=== PATIENT | female | born 1955 | race African-American/Black ===

== ENCOUNTER 2018-04-02 16:02 | Inpatient (IN) | payer OTHER ==
[2018-04-02 16:38] VITALS: BMI 57.4
[2018-04-02] MEDS ORDERED: LACTATED RINGERS SOLUTION 1,000 ML IV STA (17:04)
[2018-04-02 17:41] LABS: BASO % 0.4 % (0-2.0); EOS % 0.5 % (0-4.5); HEMATOCRIT 38.8 % (32.4-45.2); HEMOGLOBIN 13.3 GM/dL (10.7-15.3); LYMPH % 22.9 % (8-40); MCH 33.4 pg (25.7-33.7); MCHC 34.3 g/dl (32.0-36.0); MEAN CELL VOLUME 97.3 fl (80-96); MEAN PLT VOLUME 10.5 fl (7.5-11.1); MONO % 2.6 % (3.8-10.2); NEUT % 73.6 % (42.8-82.8); PLATELET COUNT 266 K/MM3 (134-434); RBC 3.99 M/mm3 (3.60-5.2); RDW 13.6 % (11.6-15.6); WHITE BLOOD COUNT 9.2 K/mm3 (4.0-10.0)
[2018-04-02 18:00] LABS: ALBUMIN 3.3 g/dl (3.4-5.0); ANION GAP 11 (8-16); BLOOD UREA NITROGEN 17 mg/dL (7-18); CALCIUM 8.5 mg/dL (8.5-10.1); CHLORIDE 105 mmol/L (98-107); CO2 25 mmol/L (21-32); GLUCOSE,RANDOM 246 mg/dL (74-106); LIPASE 52 U/L (73-393); SODIUM 141 mmol/L (136-145)
[2018-04-02 18:04] LABS: ALK PHOS 98 U/L (45-117); BILIRUBIN,TOTAL 0.5 mg/dL (0.2-1.0); CREATININE 0.8 mg/dL (0.55-1.02); SGPT/ALT 19 U/L (12-78); TOT PROT 7.4 g/dl (6.4-8.2)
[2018-04-02 18:13] LABS: POTASSIUM 4.2 mmol/L (3.5-5.1); SGOT/AST 23 U/L (15-37)
--- NOTE | 2018-04-02 18:28 | PDOC ---
History of Present Illness - General History Source: Patient Exam Limitations: No Limitations - History of Present Illness Initial Comments: 04/02/18 19:20 Ms. Ml Hardin is a 63 year old female with past medical history of DM with bilateral lower extremity amputation and HLD presents to the emergency department with abdominal discomfort since 2:00 pm today. The patient presents with stomach sickness, dizziness, chills, and trouble catching breath since earlier today s/p eating grapes. The patient reports following up with Dr. Dawson earlier in the day, followed by returning home, where she had grapes prior to the presentation of 3 episodes of phlegmy emesis and multiple episodes of loose watery diarrhea. The patient reports she had elevated blood sugar today, denies taking insulin. The patient denies having melena or dark colored stool today, but states days prior she had an episode with dark stool, denies taking iron. The patient reports chronic history of urinary incontinence. The patient states she is ambulating via wheelchair, states she awaiting prosthetic. Denies recent sickness or travel. Denies SOB or CP. Denies hematuria or dysuria. Denies hematochezia. (+) abdominal discomfort. Dizziness. Chills. Vomiting. Diarrhea. Allergies: NKDA Past Surgical History: Bilateral lower extremity amputation Social History: Non smoker. No ETOH or recreational drug use. PCP: Dr. Dawson @ [facility]. <Lakeisha Aguilar - Last Filed: 04/02/18 19:21> - General History Source: Patient <Clara Reyesbing Nicole - Last Filed: 04/02/18 23:26> - General Chief Complaint: Vomiting/Diarrhea Stated Complaint: DIARRHEA Time Seen by Provider: 04/02/18 17:06 Past History <Lakeisha Aguilar - Last Filed: 04/02/18 19:21> - Past Medical History COPD: No DVT: No Diabetes: Yes - Suicide/Smoking/Psychosocial Hx Smoking History: Never smoked Have you smoked in the past 12 months: No Information on smoking cessation initiated: No Hx Alcohol Use: No Drug/Substance Use Hx: No Substance Use Type: None <Do Reyes - Last Filed: 04/02/18 23:26> - Past Medical History Allergies/Adverse Reactions: Allergies Allergy/AdvReac Type Severity Reaction Status Date / Time No Known Allergies Allergy Verified 04/02/18 16:27 Home Medications: Ambulatory Orders Unobtainable 02/18/18 Review of Systems - Review of Systems Able to Perform ROS?: Yes Comments:: 04/02/18 19:20 GENERAL/CONSTITUTIONAL: (+) Chills. No fever. No weakness. no sweats. HEAD, EYES, EARS, NOSE AND THROAT: No change in vision or hearing. No ear pain or discharge. No sore throat or mouth pain. No difficulty swallowing.. No congestion. CARDIOVASCULAR: No chest pain or palpitations, syncope or edema. RESPIRATORY: (+) Difficulty catching her breath. No SOB, cough, wheezing, or hemoptysis. GASTROINTESTINAL: (+) Nausea, vomiting and diarrhea. No constipation. No bloody stools. GENITOURINARY: (+)Urinary incontinence. No hematuria, dysuria, frequency, urgency or other changes. MUSCULOSKELETAL: (+) bilateral lower extremity amputation. No joint or muscle swelling or pain. No neck or back pain. SKIN: No rash or changes in skin color or lesions. NEUROLOGIC: (+) Dull headache w/ 3/10 in severity. No vertigo, loss of consciousness, or change in strength/sensation. ENDOCRINE: No increased thirst. No abnormal weight or appetite change or intolerance to heat/cold. HEMATOLOGIC/LYMPHATIC: No anemia, easy bruising/bleeding, or history of blood clots. ALLERGIC/IMMUNOLOGIC: No allergies All other systems reviewed and negative, or as documented in HPI. <Lakeisha Aguilar - Last Filed: 04/02/18 19:21> *Physical Exam - Vital Signs Last Vital Signs Temp Pulse Resp BP Pulse Ox 98 F 54 L 18 107/56 98 04/02/18 16:28 04/02/18 16:28 04/02/18 16:28 04/02/18 16:28 04/02/18 16:28 - Physical Exam Comments: 04/02/18 19:20 General: Well appearing, awake and alert, NAD. HEENT: NCAT, PERRL, EOMI, clear conjunctiva, anicteric, (+) dry mucus membranes , clear oropharynx, no oral lesions.. Neck: neck supple, FROM Resp: CTAB, normal and even respirations, no respiratory distress CVS: RRR, no murmurs, 2+ peripheral pulses throughout, no peripheral edema Abdomen: soft, NT, obese, no peritoneal signs. Back: nontender, normal inspection and ROM MSK: (+) BIlateral lower extremity amputation. no edema, OLSON x4, ROM intact. No clubbing or cyanosis. normal bulk and tone. Neuro: alert, oriented appropriately; no focal neurologic deficits. SILT, 5/5 distal and prox strength in all extrem. speech clear. Skin: warm and well perfused, cap refill <2 sec, normal color for ethnicity. <Lakeisha Aguilar - Last Filed: 04/02/18 19:21> - Vital Signs Last Vital Signs Temp Pulse Resp BP Pulse Ox 98 F 54 L 18 107/56 98 04/02/18 16:28 04/02/18 16:28 04/02/18 16:28 04/02/18 16:28 04/02/18 16:28 <Do Reyes - Last Filed: 04/02/18 23:26> ED Treatment Course - LABORATORY CBC & Chemistry Diagram: 04/02/18 17:12 04/02/18 17:12 - ADDITIONAL ORDERS Additional order review: Laboratory Results 04/02/18 17:12 Sodium 141 Potassium 4.2 Chloride 105 Carbon Dioxide 25 Anion Gap 11 BUN 17 Creatinine 0.8 Creat Clearance w eGFR > 60 Random Glucose 246 H Calcium 8.5 Total Bilirubin 0.5 AST 23 ALT 19 Alkaline Phosphatase 98 Total Protein 7.4 Albumin 3.3 L Lipase 52 L 04/02/18 17:12 RBC 3.99 MCV 97.3 H MCHC 34.3 RDW 13.6 MPV 10.5 Neutrophils % 73.6 D Lymphocytes % 22.9 D Monocytes % 2.6 L Eosinophils % 0.5 Basophils % 0.4 - Medications Given in the ED: ED Medications Discontinued Medications Generic Name Dose Route Start Last Admin Trade Name Freq PRN Reason Stop Dose Admin Lactated Ringer's 1,000 mls @ 1,000 mls/hr 04/02/18 17:04 04/02/18 17:19 Lactated Ringers Solution IV 04/02/18 18:03 1,000 mls/hr ONCE STA Administration <Lakeisha Aguilar - Last Filed: 04/02/18 19:21> - LABORATORY CBC & Chemistry Diagram: 04/02/18 17:12 04/02/18 17:12 - ADDITIONAL ORDERS Additional order review: Laboratory Results 04/02/18 17:12 Sodium 141 Potassium 4.2 Chloride 105 Carbon Dioxide 25 Anion Gap 11 BUN 17 Creatinine 0.8 Creat Clearance w eGFR > 60 Random Glucose 246 H Calcium 8.5 Total Bilirubin 0.5 AST 23 ALT 19 Alkaline Phosphatase 98 Total Protein 7.4 Albumin 3.3 L Lipase 52 L 04/02/18 17:12 RBC 3.99 MCV 97.3 H MCHC 34.3 RDW 13.6 MPV 10.5 Neutrophils % 73.6 D Lymphocytes % 22.9 D Monocytes % 2.6 L Eosinophils % 0.5 Basophils % 0.4 - RADIOLOGY Radiology Studies Ordered: Category Date Time Status ABDOMEN & PELVIS CT WITH CONTR [CT] Stat CT Scan 04/02/18 18:27 Ordered - Medications Given in the ED: ED Medications Discontinued Medications Generic Name Dose Route Start Last Admin Trade Name Freq PRN Reason Stop Dose Admin Lactated Ringer's 1,000 mls @ 1,000 mls/hr 04/02/18 17:04 04/02/18 17:19 Lactated Ringers Solution IV 04/02/18 18:03 1,000 mls/hr ONCE STA Administration <Do Reyes - Last Filed: 04/02/18 23:26> Medical Decision Making - Medical Decision Making 04/02/18 18:27 A portion of this note was documented by scribe services under my direction. I have reviewed the details of the note, within reason, and agree with the documentation with the following case summary and management plan written by me. 63 YOF with h/o HLD and IDDM s/p bilateral amputations in lower extrem presenting with AP, n/v/d today. occurred this afternoon after eating grapes. + urinary incontinence at baseline. DDx abdominal pain: GERD, PUD, esophageal spasm, pancreatitis, hepatitis, constipation, acute colitis, gastroenteritis, cholecystitis, UTI, pyelonephritis , ileus, SBO, hernia, appendicitis, diverticulitis Vital signs reviewed, no fever, normotensive. Plan: CBC, CMP, lipase, UA, VBG, CT a/p to r/o intra abdominal pathology labs wnl, reassuring, mild hyperglycemia in 200s, but hydrated, doubt DKA. given IVF, no pain meds or antiemetics requested. however, feels malaised and continues to have voluminous diarrhea here requiring cleaning by staff members several times. CT a/p on my eval with thickening/colitis in right ascending colon - no obstruction. IV cef/flagyl for suspected infectious colitis. offered admit, pt elects for admit for observation/hydration and supportive care. Plan: admit for hydration, medical management and observation given persistent diarrhea/difficulty tolerating PO. admitting to hospitalist (PMD Dr. Samir allen/ [place]) 04/02/18 19:17 04/02/18 23:23 <Do Reyes - Last Filed: 04/02/18 23:26> *DC/Admit/Observation/Transfer - Attestations Scribe Attestion: 04/02/18 19:21 Documentation prepared by Lakeisha Aguilar, acting as medical support assistant for Do Reyes MD. <Lakeisha Aguilar - Last Filed: 04/02/18 19:21> - Discharge Dispostion Decision to Admit order: Yes <Do Reyes - Last Filed: 04/02/18 23:26> Diagnosis at time of Disposition: Acute colitis Diarrhea Qualifiers: Diarrhea type: unspecified type Qualified Code(s): R19.7 - Diarrhea, unspecified
[2018-04-02 20:16] LABS: VENOUS PC02 45.2 mmHg (38-52); VENOUS PH 7.36 (7.32-7.42); VENOUS PO2 46.6 mmHg (28-48)
[2018-04-02] MEDS ORDERED: CEFTRIAXONE 1,000 MG in DEXTROSE 5%-WATER - 50 ML IVPB ONE (22:42)
[2018-04-02] MEDS ORDERED: CEFTRIAXONE 1 GM/50 ML BAG ONE (23:30)
[2018-04-02] MEDS ORDERED: ACETAMINOPHEN 325 MG TABLET (FP) PO PRN (23:43)
--- NOTE | 2018-04-02 23:58 | HP ---
CHIEF COMPLAINT: diarrhea PCP: Dr Dawson in the [place] HISTORY OF PRESENT ILLNESS: 63 year old female hx of diabetes mellitus, b/l BKAs, and hyperlipidemia presents for 1 day hx of diarrhea that began around 130pm today after she returned from her PCP office. She states that when she came back home, she ate some grapes before making dinner and almost immediately after began having an uneasy feeling in her abdomen which resulted in 5 episodes of non-bloody diarrhea. She additionally reports nausea and 3 episodes of non-bloody non- bilious emesis that began after the 1st bout of diarrhea. Denies any overt abdominal pain or discomfort. Patient states that she had similar episodes of diarrhea, once last month and once a month prior that resolved spontaneously. Does endorse some chills earlier in the day but did not measure her temperature. Patient states that any PO intake exacerbates her diarrhea. She denies any recent antibiotic use, recent travel, or sick contacts. She additionally reports some "pressure" prior to urinating for the last several days. She states that she occasionally gets urinary tract infections that are treated with antibiotics. Currently denies chest pain, shortness of breath, nausea, vomiting, abdominal pain, fevers, chills. Did not take her diabetic medications today, but states that she is compliant. Last colonoscopy was 3 years ago at [facility], patient reports that she had 2 polyps which were not removed and stated her GI told her to get a followup colonoscopy in 5 years (2 more years). ER course was notable for: (1) CT showing rectosigmoid colitis AND stool in the rectal vault suggestive of constipation (2) (3) Recent Travel: denies PAST MEDICAL HISTORY: diabetes mellitus, b/l BKAs, and hyperlipidemia PAST SURGICAL HISTORY: B/L BKAs (15 years ago) Social History: Smoking: never Alcohol: denies Drugs: denies Living Situation: lives in same building as daughter, moves around in wheelchair. Family History: DM in both parents and 1 daughter, stroke in mother Allergies No Known Allergies Allergy (Verified 04/02/18 16:27) HOME MEDICATIONS: Home Medications Medication Instructions Recorded Unobtainable 02/18/18 REVIEW OF SYSTEMS CONSTITUTIONAL: Absent: fever, chills, diaphoresis, generalized weakness, malaise, loss of appetite, weight change HEENT: Absent: rhinorrhea, nasal congestion, throat pain, throat swelling, difficulty swallowing, mouth swelling, ear pain, eye pain, visual changes CARDIOVASCULAR: Absent: chest pain, syncope, palpitations, irregular heart rate, lightheadedness , peripheral edema RESPIRATORY: Absent: cough, shortness of breath, dyspnea with exertion, orthopnea, wheezing, stridor, hemoptysis GASTROINTESTINAL: diarrhea Absent: abdominal pain, abdominal distension, nausea, vomiting, constipation, melena, hematochezia GENITOURINARY: Absent: dysuria, frequency, urgency, hesitancy, hematuria, flank pain, genital pain MUSCULOSKELETAL: Absent: myalgia, arthralgia, joint swelling, back pain, neck pain SKIN: Absent: rash, itching, pallor HEMATOLOGIC/IMMUNOLOGIC: Absent: easy bleeding, easy bruising, lymphadenopathy, frequent infections ENDOCRINE: Absent: unexplained weight gain, unexplained weight loss, heat intolerance, cold intolerance NEUROLOGIC: Absent: headache, focal weakness or paresthesias, dizziness, unsteady gait, seizure, mental status changes, bladder or bowel incontinence PSYCHIATRIC: Absent: anxiety, depression, suicidal or homicidal ideation, hallucinations. PHYSICAL EXAMINATION Vital Signs - 24 hr 04/02/18 16:28 Temperature 98 F Pulse Rate 54 L Respiratory 18 Rate Blood Pressure 107/56 O2 Sat by Pulse 98 Oximetry (%) GENERAL: A&Ox3, no acute distress EYES: PERRLA, EOMI ENT: Moist mucus membranes LUNGS: CTA, no wheezes HEART: RRR, harsh systolic murmur noted in 2nd R intercostal space ABDOMEN: Obese, soft, nontender, BS present - BS hyperactive in RLQ MUSCULOSKELETAL: No CVA Tenderness EXTREMITIES: 2+ pulses, b/l BKAs, no edema NEUROLOGICAL: Cranial nerves II-XII intact. No focal deficits Laboratory Results - last 24 hr 04/02/18 04/02/18 04/02/18 17:12 17:12 19:55 WBC 9.2 RBC 3.99 Hgb 13.3 Hct 38.8 MCV 97.3 H MCH 33.4 MCHC 34.3 RDW 13.6 Plt Count 266 MPV 10.5 Absolute Neuts (auto) 6.8 Neutrophils % 73.6 D Lymphocytes % 22.9 D Monocytes % 2.6 L Eosinophils % 0.5 Basophils % 0.4 Nucleated RBC % 0 VBG pH 7.36 POC VBG pCO2 45.2 POC VBG pO2 46.6 D Mixed VBG HCO3 25.0 Sodium 141 Potassium 4.2 Chloride 105 Carbon Dioxide 25 Anion Gap 11 BUN 17 Creatinine 0.8 Creat Clearance w eGFR > 60 Random Glucose 246 H Calcium 8.5 Total Bilirubin 0.5 AST 23 ALT 19 Alkaline Phosphatase 98 Total Protein 7.4 Albumin 3.3 L [address] Abd/Pelvis [facility] [employer] [place] [employer] [place] Read: Suspected mild rectosigmoid colitis and large amount of distal colonic stool which may indicate secondary constipation. Gallstones. ASSESSMENT/PLAN: 63 year old female hx of diabetes mellitus, b/l BKAs, and hyperlipidemia presents for 1 day hx of diarrhea and admitted for the treatment of acute colitis #Rectosigmoid Colitis: possibly infectious vs inflammatory in nature -lactated ringers at 83cc/hr 1 bag -NPO for now, will consider to advance to clear liquid diet in morning of patient can tolerate -flagyl 500mg Q6h IVPB -ciprofloxacin 400mg Q12h IVPB -tylenol for pain -GI consulted Dr. Delaney - please evaluate patient with colitis and CT evidence of large amount of stool in rectal vault #Diabetes Mellitus: currently uncontrolled, patient did not take her diabetic medications today -blood glucose monitoring Q6h while NPO, ACHS once put on diet -insulin sliding scale as ordered -A1C in the morning #Urinary Pressure: could be recurrent UTI -will obtain UA and reassess antibiotic management -patient currently on ciprofloxacin, which will treat uncomplicated UTI with sensitive organisms #Hyperlipidemia: chronic -will confirm medications with [facility] in the AM when it opens #FEN -lactated ringers at 83cc/hr -lytes WNL -NPO #Prophylaxis -heparin 5000subq TID #Disposition -admit med surg Visit type - Emergency Visit Emergency Visit: Yes ED Registration Date: 04/02/18 Care time: The patient presented to the Emergency Department on the above date and was hospitalized for further evaluation of their emergent condition. - New Patient This patient is new to me today: Yes Date on this admission: 04/03/18 - Critical Care Critical Care patient: No Hospitalist Screening - Colonoscopy Questionnaire Colonoscopy Questionnaire: Colonoscopy Questionnaire - Patient: 50 - 75 years old and never had a screening colonoscopy: Unknown History of colon or rectal polyps, or CA: Unknown History of IBD, Crohn's disease or UC: Unknown History of abdominal radiation therapy as a child: Unknown - Relative: 1 with colon or rectal CA, or polyps at age 60 or younger: Unknown Colon or rectal CA diagnosed at age 45 or younger: Unknown Multiple relatives with colon or rectal CA: Unknown - Outcome: Screening Result: Negative Screen
[2018-04-03] MEDS: LACTATED RINGERS SOLUTION 1,000 ML IV SCH ×3 (00:01→20:55)
[2018-04-03] MEDS ORDERED: HEPARIN NA (PORCINE) 5,000 UNITS/ML 1ML VIAL SQ SCH (02:00)
--- NOTE | 2018-04-03 02:37 | PN ---
Teaching Attending Note Name of Resident: Fredrick Fajardo ATTENDING PHYSICIAN STATEMENT I saw and evaluated the patient. I reviewed the resident's note and discussed the case with the resident. I agree with the resident's findings and plan as documented. SUBJECTIVE: Patient is a 63 year old woman with past medical history of NIDDM with bilateral BKA and HLD who presents to the ER with abdominal discomfort since 2: 00 pm today. The patient presents with stomach sickness, dizziness, chills, and trouble catching breath since earlier today s/p eating grapes. The patient reports following up with Dr. Dawson earlier in the day, followed by returning home, where she had grapes prior to the presentation of 3 episodes of phlegmy emesis and multiple episodes of loose watery diarrhea. The patient reports she had elevated blood sugar today, denies taking insulin. The patient denies having melena or dark colored stool today, but states days prior she had an episode with dark stool, denies taking iron. The patient reports chronic history of urinary incontinence and suprapubic pressure. She is wheelchair bound , while awaiting prosthesis. OBJECTIVE: Alert, obese and in no acute distress Vital Signs Period Temp Pulse Resp BP Sys/Boykin Pulse Ox Last 24 Hr 98 F 54 18 107/56 98 HEENT: No Jaundice, eye redness or discharge, PERRLA, EOMI. Normocephalic, atraumatic. External ears are normal and hearing is grossly intact. No nasal discharge. Neck: Supple, nontender. No palpable adenopathy or thyromegaly. No JVD Chest: Good effort. Clear to auscultation and percussion. Heart: Regular. No S3, rub or murmur Abdomen: Not distended, soft, nontender and no HSM. No rebound or guarding. Normoactive bowel sounds. Ext: Peripheral pulses intact. Bilateral BKA. Skin: Warm and dry. No petechiae, rash or ecchymosis. Neuro: Alert. Oriented x3. CN 2-12 grossly intact. Sensation grossly intact in all four extremities and DTR are symmetric. Current Medications Generic Name Dose Route Start Last Admin Trade Name Freq PRN Reason Stop Dose Admin Acetaminophen 650 mg 04/02/18 23:43 Tylenol - PO Q4H PRN PAIN Heparin Sodium (Porcine) 5,000 unit 04/03/18 06:00 Heparin - SQ TID SHANIA Lactated Ringer's 1,000 mls @ 83 mls/hr 04/02/18 23:45 04/03/18 00:01 Lactated Ringers Solution IV 83 mls/hr ASDIR SHANIA Administration Ciprofloxacin/Dextrose 400 mg in 200 mls @ 200 mls/hr 04/03/18 10:00 Cipro 400 Mg Premix Ivpb (Restricted To Id) IVPB BID SHANIA Metronidazole 500 mg in 100 mls @ 100 mls/hr 04/03/18 03:00 Flagyl 500mg Premixed Ivpb - IVPB Q6H-IV SHANIA Insulin Aspart 0 vial 04/03/18 07:00 Novolog Vial Sliding Scale - SQ ACHS SHANIA Protocol Home Medications Medication Instructions Recorded Unobtainable 02/18/18 Abnormal Lab Results 04/02/18 04/02/18 17:12 17:12 MCV 97.3 H Monocytes % 2.6 L Random Glucose 246 H Albumin 3.3 L Lipase 52 L ASSESSMENT AND PLAN: 1. Colitis - CT scan of the abdomen shows colitis and "large" amount of stool despite her "diarrhea". Thus she may have stercoral colitis - inflammatory colitis due to increased intraluminal pressure caused by impacted fecal material. Will send stool for studies including C.Diff toxin. Do stool disimpaction, treat with IV Cipro and Flagyl, IV fluids and consult GI. Suprapubic pressure may be due to constipation, but UA has been ordered to rule out UTI. 2. DM - For now, we will hold the home diabetes drugs and implement sliding scale insulin regimen. Provide comprehensive diabetes care with patient teaching and counseling about the importance of euglycemia, eye care and foot care. 3. Morbid Obesity - Will provide patient all the necessary assistance , counseling and positive reinforcement to facilitate weight loss. Consult vegetables cook. 4. DVT prophylaxis - Heparin 5000u sq tid. 5. Advance directives - Full code
[2018-04-03 04:42] LABS: URINE APPEARANCE CLEAR; URINE BILIRUBIN NEGATIVE (<2.0 mg/dL); URINE COLOR DKYELLOW; URINE GLUCOSE (UA) NEGATIVE (NEGATIVE); URINE KETONE NEGATIVE (NEGATIVE); URINE NITRITE NEGATIVE (NEGATIVE); URINE PROTEIN NEGATIVE (NEGATIVE)
[2018-04-03 04:49] LABS: URINE LEUK ESTERASE 2+ (NEGATIVE)
[2018-04-03 04:50] LABS: EPI CELLS RARE /HPF (FEW); URINE BACTERIA MANY /hpf (NONE SEEN); URINE MUCUS RARE
[2018-04-03] MEDS: INSULIN SLIDING SCALE (NOVOLOG) 1 VIAL SQ SCH ×4 (06:34→21:40)
[2018-04-03] MEDS: HEPARIN NA (PORCINE) 5,000 UNITS/ML 1ML VIAL SQ SCH ×3 (06:34→21:29)
[2018-04-03 06:59] LABS: HEMATOCRIT 32.8 % (32.4-45.2); HEMOGLOBIN 11.5 GM/dL (10.7-15.3); MCH 34.1 pg (25.7-33.7); MCHC 34.9 g/dl (32.0-36.0); MEAN CELL VOLUME 97.5 fl (80-96); MEAN PLT VOLUME 10.1 fl (7.5-11.1); PLATELET COUNT 233 K/MM3 (134-434); RBC 3.36 M/mm3 (3.60-5.2); RDW 13.3 % (11.6-15.6); WHITE BLOOD COUNT 8.7 K/mm3 (4.0-10.0)
[2018-04-03 07:24] LABS: ANION GAP 7 (8-16); BLOOD UREA NITROGEN 15 mg/dL (7-18); CALCIUM 8.1 mg/dL (8.5-10.1); CHLORIDE 105 mmol/L (98-107); CO2 29 mmol/L (21-32); GLUCOSE,RANDOM 134 mg/dL (74-106); MAGNESIUM 1.2 mg/dL (1.8-2.4); POTASSIUM 3.9 mmol/L (3.5-5.1); SODIUM 141 mmol/L (136-145)
[2018-04-03 07:25] LABS: CREATININE 0.7 mg/dL (0.55-1.02)
[2018-04-03] MEDS: MAGNESIUM 1GM/D5W 100ML - 100 ML IVPB IVPB SCH ×2 (09:53→10:47)
[2018-04-03] MEDS: CIPROFLOXACIN 400 MG/D5W 400 MG/200 ML IVPB IVPB SCH ×2 (12:31→21:29)
--- NOTE | 2018-04-03 12:40 | CON.GI ---
Consult Consult Specialty:: GI Reason for Consultation:: colitis - History of Present Illness History of Present Illness: Chart reviewed. Events noted. Per initial intake: 63 year old female hx of diabetes mellitus, b/l BKAs, and hyperlipidemia presents for 1 day hx of diarrhea that began around 130pm today after she returned from her PCP office. She states that when she came back home , she ate some grapes before making dinner and almost immediately after began having an uneasy feeling in her abdomen which resulted in 5 episodes of non- bloody diarrhea. She additionally reports nausea and 3 episodes of non-bloody non-bilious emesis that began after the 1st bout of diarrhea. Denies any overt abdominal pain or discomfort. Patient states that she had similar episodes of diarrhea, once last month and once a month prior that resolved spontaneously. Does endorse some chills earlier in the day but did not measure her temperature. Patient states that any PO intake exacerbates her diarrhea. She denies any recent antibiotic use, recent travel, or sick contacts. She additionally reports some "pressure" prior to urinating for the last several days. She states that she occasionally gets urinary tract infections that are treated with antibiotics. Currently denies chest pain, shortness of breath, nausea, vomiting, abdominal pain, fevers, chills. Did not take her diabetic medications today, but states that she is compliant. Last colonoscopy was 3 years ago at [facility], patient reports that she had 2 polyps which were not removed and stated her GI told her to get a followup colonoscopy in 5 years (2 more years). ER course was notable for: (1) CT showing rectosigmoid colitis AND stool in the rectal vault suggestive of constipation At the time of this encounter the pt appeared comfortable, not in pain, or distress. This was an acute-onset event. There is no personal, or family history of IBD, chronic GI issues. No prior history of colitis, ischemic events. No weight loss, joint, skin, back symptoms. Last colonoscopy was 3 y ago. 2 polyps were found. Due for polyp surveillance in 2 years. - History Source History Provided By: Patient, Medical Record - Alcohol/Substance Use Hx Alcohol Use: No - Smoking History Smoking history: Never smoked Have you smoked in the past 12 months: No Home Medications - Allergies Allergies/Adverse Reactions: Allergies Allergy/AdvReac Type Severity Reaction Status Date / Time No Known Allergies Allergy Verified 04/02/18 16:27 - Home Medications Home Medications: Ambulatory Orders Insulin Glargine,Hum.rec.anlog [Lantus (nf)] 10 units SQ HS 04/03/18 Family Disease History - Family Disease History Family History: Unremarkable Review of Systems Findings/Remarks: as per hpi, h&p, ed Physical Exam-GI Vital Signs: Vital Signs Temperature 97.7 F 04/03/18 10:00 Pulse Rate 77 04/03/18 10:00 Respiratory Rate 18 04/03/18 10:00 Blood Pressure 137/88 04/03/18 10:00 O2 Sat by Pulse Oximetry (%) 98 04/03/18 04:11 Constitutional: Yes: Well Nourished, No Distress, Calm Eyes: Yes: Conjunctiva Clear HENT: Yes: Atraumatic Neck: Yes: Supple Cardiovascular: Yes: Regular Rate and Rhythm Respiratory: Yes: Regular Gastrointestinal Inspection: No: Ascites, Distention ...Auscultate: Yes: Normoactive Bowel Sounds ...Palpate: Yes: Soft. No: Firm/Rigid, Guarding, Mass, Tenderness, Tenderness, Epigastium Neurological: Yes: Alert, Oriented Labs: CBC, BMP 04/03/18 06:05 04/03/18 06:05 Laboratory Last Values WBC 8.7 K/mm3 (4.0-10.0) 04/03/18 06:05 RBC 3.36 M/mm3 (3.60-5.2) L 04/03/18 06:05 Hgb 11.5 GM/dL (10.7-15.3) 04/03/18 06:05 Hct 32.8 % (32.4-45.2) D 04/03/18 06:05 MCV 97.5 fl (80-96) H 04/03/18 06:05 MCH 34.1 pg (25.7-33.7) H 04/03/18 06:05 MCHC 34.9 g/dl (32.0-36.0) 04/03/18 06:05 RDW 13.3 % (11.6-15.6) 04/03/18 06:05 Plt Count 233 K/MM3 (134-434) 04/03/18 06:05 MPV 10.1 fl (7.5-11.1) 04/03/18 06:05 Absolute Neuts (auto) 6.8 # 04/02/18 17:12 Neutrophils % 73.6 % (42.8-82.8) D 04/02/18 17:12 Lymphocytes % 22.9 % (8-40) D 04/02/18 17:12 Monocytes % 2.6 % (3.8-10.2) L 04/02/18 17:12 Eosinophils % 0.5 % (0-4.5) 04/02/18 17:12 Basophils % 0.4 % (0-2.0) 04/02/18 17:12 Nucleated RBC % 0 % (0-0) 04/02/18 17:12 VBG pH 7.36 (7.32-7.42) 04/02/18 19:55 POC VBG pCO2 45.2 mmHg (38-52) 04/02/18 19:55 POC VBG pO2 46.6 mmHg (28-48) D 04/02/18 19:55 Mixed VBG HCO3 25.0 meq/L (19-25) 04/02/18 19:55 Sodium 141 mmol/L (136-145) 04/03/18 06:05 Potassium 3.9 mmol/L (3.5-5.1) 04/03/18 06:05 Chloride 105 mmol/L (98-107) 04/03/18 06:05 Carbon Dioxide 29 mmol/L (21-32) 04/03/18 06:05 Anion Gap 7 (8-16) L 04/03/18 06:05 BUN 15 mg/dL (7-18) 04/03/18 06:05 Creatinine 0.7 mg/dL (0.55-1.02) 04/03/18 06:05 Creat Clearance w eGFR > 60 (>60) 04/03/18 06:05 POC Glucometer 155 UNITS (80-120) 04/03/18 11:46 Random Glucose 134 mg/dL (74-106) H 04/03/18 06:05 Calcium 8.1 mg/dL (8.5-10.1) L 04/03/18 06:05 Phosphorus 4.0 mg/dL (2.5-4.9) 04/03/18 06:05 Magnesium 1.2 mg/dL (1.8-2.4) L 04/03/18 06:05 Total Bilirubin 0.5 mg/dL (0.2-1.0) 04/02/18 17:12 AST 23 U/L (15-37) 04/02/18 17:12 ALT 19 U/L (12-78) 04/02/18 17:12 Alkaline Phosphatase 98 U/L (45-117) 04/02/18 17:12 Total Protein 7.4 g/dl (6.4-8.2) 04/02/18 17:12 Albumin 3.3 g/dl (3.4-5.0) L 04/02/18 17:12 Lipase 52 U/L (73-393) L 04/02/18 17:12 Urine Color Dkyellow 04/03/18 03:15 Urine Appearance Clear 04/03/18 03:15 Urine pH 5.0 (5.0-8.0) 04/03/18 03:15 Ur Specific [place] 1.038 (1.001-1.035) H 04/03/18 03:15 Urine Protein Negative (NEGATIVE) 04/03/18 03:15 Urine Glucose (UA) Negative (NEGATIVE) 04/03/18 03:15 Urine Ketones Negative (NEGATIVE) 04/03/18 03:15 Urine Blood 1+ (NEGATIVE) H 04/03/18 03:15 Urine Nitrite Negative (NEGATIVE) 04/03/18 03:15 Urine Bilirubin Negative (<2.0 mg/dL) 04/03/18 03:15 Urine Urobilinogen 2.0 mg/dL (0.2-1.0) H 04/03/18 03:15 Ur Leukocyte Esterase 2+ (NEGATIVE) H 04/03/18 03:15 Urine WBC (Auto) 16 /hpf (3-5) 04/03/18 03:15 Urine RBC (Auto) 5 /hpf (0-3) 04/03/18 03:15 Ur Epithelial Cells Rare /HPF (FEW) 04/03/18 03:15 Urine Bacteria Many /hpf (NONE SEEN) 04/03/18 03:15 Urine Mucus Rare 04/03/18 03:15 Stool Occult Blood Positive (NEGATIVE) 04/03/18 03:15 Imaging - Results Cat Scan: Report Reviewed Problem List - Problems (1) Infectious colitis Code(s): A09 - INFECTIOUS GASTROENTERITIS AND COLITIS, UNSPECIFIED (2) Acute colitis Code(s): K52.9 - NONINFECTIVE GASTROENTERITIS AND COLITIS, UNSPECIFIED Assessment/Plan Acute onset symptoms suggestive of acute enterocolitis. Doubt ischemia or IBD. Agree with stool testing for infectious etiologies incuding C. diff toxin, PO/ IV hydration and BRAT diet. Discussed with the pt. b12 and folate levels
[2018-04-03] MEDS: POLYETHYLENE GLYCOL 3350 119 GM BTL PO SCH ×2 (14:27→21:29)
--- NOTE | 2018-04-03 16:15 | PN ---
Teaching Attending Note Name of Resident: René Forte ATTENDING PHYSICIAN STATEMENT I saw and evaluated the patient. I reviewed the resident's note and discussed the case with the resident. I agree with the resident's findings and plan as documented with exceptions below. SUBJECTIVE: Patient seen and examined. had a large BM, feels much better, no nausea, vomitting or new concerns currently. OBJECTIVE: Vital Signs Period Temp Pulse Resp BP Sys/Boykin Pulse Ox Last 24 Hr 97.7 F-98.2 F 54-84 18-20 107-137/56-88 98-98 Intake & Output 03/31/18 04/01/18 04/02/18 04/03/18 23:59 23:59 23:59 23:59 Intake Total 900 Output Total 300 Balance 600 Weight 400 lb 284 lb 9.6 oz General: sitting in bed in no acute distress Abdomen:Soft, obese, NT throughout, positive bowel sounds Extremities; bilateral BKA Home Medications Medication Instructions Recorded Insulin Glargine,Hum.rec.anlog 10 units SQ HS 04/03/18 [Lantus (nf)] Active Medications Acetaminophen (Tylenol -) 650 mg PO Q4H PRN PRN Reason: PAIN Heparin Sodium (Porcine) (Heparin -) 5,000 unit SQ TID [facility] Last Admin: 04/03/18 14:27 Dose: 5,000 unit Lactated Ringer's (Lactated Ringers Solution) 1,000 mls @ 83 mls/hr IV ASDIR [facility] Last Admin: 04/03/18 03:37 Dose: 83 mls/hr Ciprofloxacin/Dextrose (Cipro 400 Mg Premix Ivpb (Restricted To Id)) 400 mg in 200 mls @ 200 mls/hr IVPB BID [facility] Last Admin: 04/03/18 12:31 Dose: 200 mls/hr Metronidazole (Flagyl 500mg Premixed Ivpb -) 500 mg in 100 mls @ 100 mls/hr IVPB Q6H-IV [facility] Last Admin: 04/03/18 14:30 Dose: 100 mls/hr Insulin Aspart (Novolog Vial Sliding Scale -) 0 vial SQ ACHS [facility]; Protocol Last Admin: 04/03/18 12:27 Dose: Not Given Polyethylene Glycol (Miralax (For Daily Use) -) 17 gm PO TID [facility] Last Admin: 04/03/18 14:27 Dose: 17 gm Laboratory Results - last 24 hr 04/02/18 04/02/18 04/02/18 17:12 17:12 19:55 WBC 9.2 RBC 3.99 Hgb 13.3 Hct 38.8 MCV 97.3 H MCH 33.4 MCHC 34.3 RDW 13.6 Plt Count 266 MPV 10.5 Absolute Neuts (auto) 6.8 Neutrophils % 73.6 D Lymphocytes % 22.9 D Monocytes % 2.6 L Eosinophils % 0.5 Basophils % 0.4 Nucleated RBC % 0 VBG pH 7.36 POC VBG pCO2 45.2 POC VBG pO2 46.6 D Mixed VBG HCO3 25.0 Sodium 141 Potassium 4.2 Chloride 105 Carbon Dioxide 25 Anion Gap 11 BUN 17 Creatinine 0.8 Creat Clearance w eGFR > 60 POC Glucometer Random Glucose 246 H Calcium 8.5 Phosphorus Magnesium Total Bilirubin 0.5 AST 23 ALT 19 Alkaline Phosphatase 98 Total Protein 7.4 Albumin 3.3 L Lipase 52 L Urine Color Urine Appearance Urine pH Ur Specific [place] Urine Protein Urine Glucose (UA) Urine Ketones Urine Blood Urine Nitrite Urine Bilirubin Urine Urobilinogen Ur Leukocyte Esterase Urine WBC (Auto) Urine RBC (Auto) Ur Epithelial Cells Urine Bacteria Urine Mucus Stool Occult Blood 04/03/18 04/03/18 04/03/18 03:15 03:15 06:05 WBC 8.7 RBC 3.36 L Hgb 11.5 Hct 32.8 D MCV 97.5 H MCH 34.1 H MCHC 34.9 RDW 13.3 Plt Count 233 MPV 10.1 Absolute Neuts (auto) Neutrophils % Lymphocytes % Monocytes % Eosinophils % Basophils % Nucleated RBC % VBG pH POC VBG pCO2 POC VBG pO2 Mixed VBG HCO3 Sodium Potassium Chloride Carbon Dioxide Anion Gap BUN Creatinine Creat Clearance w eGFR POC Glucometer Random Glucose Calcium Phosphorus Magnesium Total Bilirubin AST ALT Alkaline Phosphatase Total Protein Albumin Lipase Urine Color Dkyellow Urine Appearance Clear Urine pH 5.0 Ur Specific [place] 1.038 H Urine Protein Negative Urine Glucose (UA) Negative Urine Ketones Negative Urine Blood 1+ H Urine Nitrite Negative Urine Bilirubin Negative Urine Urobilinogen 2.0 H Ur Leukocyte Esterase 2+ H Urine WBC (Auto) 16 Urine RBC (Auto) 5 Ur Epithelial Cells Rare Urine Bacteria Many Urine Mucus Rare Stool Occult Blood Positive 04/03/18 04/03/18 04/03/18 06:05 06:33 11:46 WBC RBC Hgb Hct MCV MCH MCHC RDW Plt Count MPV Absolute Neuts (auto) Neutrophils % Lymphocytes % Monocytes % Eosinophils % Basophils % Nucleated RBC % VBG pH POC VBG pCO2 POC VBG pO2 Mixed VBG HCO3 Sodium 141 Potassium 3.9 Chloride 105 Carbon Dioxide 29 Anion Gap 7 L BUN 15 Creatinine 0.7 Creat Clearance w eGFR > 60 POC Glucometer 132 155 Random Glucose 134 H Calcium 8.1 L Phosphorus 4.0 Magnesium 1.2 L Total Bilirubin AST ALT Alkaline Phosphatase Total Protein Albumin Lipase Urine Color Urine Appearance Urine pH Ur Specific [place] Urine Protein Urine Glucose (UA) Urine Ketones Urine Blood Urine Nitrite Urine Bilirubin Urine Urobilinogen Ur Leukocyte Esterase Urine WBC (Auto) Urine RBC (Auto) Ur Epithelial Cells Urine Bacteria Urine Mucus Stool Occult Blood Microbiology 04/03/18 03:15 Stool Clostridium difficile Antigen (COURTNEY) - Final 04/03/18 03:15 Stool Clostridium difficile Toxin Assay - Final ASSESSMENT AND PLAN: 63 yof with PMhx of IDDM, bilateral BKA, currently wheel chair bound, awaiting prosthesis, here with nausea, vomiting diarrhea, CT with ?enterocolitis and constipation with rectal thickening. -Severe constipation with rectal thickening, ?stercoral colitis -Acute enterocolitis, -IDDM -Bilateral BKA Plan: s/p enema with large BM, clinically better, no further concerns. no fevers or leucocytosis, abdominal exam benign. No further symptoms. ?self limiting gastroenteritis. GI input noted. Stool studies if further diarrhea. Cipro/flagyl day 1. Stool C difficile neg. resume levemir based on blood sugar readings and PO intake. Advance to BRAT diet , ISS. Continue IVF. DVTPPX with heparin Dispo in 24-48 hours if continues to improve and tolerating diet. Plan discussed with patient in detail, all questions answered.
[2018-04-03] MEDS ORDERED: PT OWN MED DRAWER 7, Y5N ONE (17:54)
--- NOTE | 2018-04-03 18:06 | PN ---
Physical Exam: SUBJECTIVE: Patient seen and examined at bedside. No complaints. received bowel regimen and feeling much better and having large BM. denies fever, chills , abd pain, CP, SOB, blood in stool, n/v OBJECTIVE: Vital Signs Period Temp Pulse Resp BP Sys/Boykin Pulse Ox Last 24 Hr 97.7 F-98.2 F 71-84 18-20 120-137/61-88 98-98 GENERAL: A&Ox3, no acute distress EYES: PERRLA, EOMI ENT: MMM LUNGS: CTA, no wheezes HEART: RRR, harsh systolic murmur noted in 2nd R intercostal space ABDOMEN: Obese, soft, NTND, BS+ MUSCULOSKELETAL: Strength grossly intact EXTREMITIES: 2+ pulses, b/l BKAs, no edema NEUROLOGICAL: Cranial nerves II-XII intact. No focal deficits Laboratory Results - last 24 hr 04/02/18 04/02/18 04/02/18 17:12 17:12 19:55 WBC 9.2 RBC 3.99 Hgb 13.3 Hct 38.8 MCV 97.3 H MCH 33.4 MCHC 34.3 RDW 13.6 Plt Count 266 MPV 10.5 Absolute Neuts (auto) 6.8 Neutrophils % 73.6 D Lymphocytes % 22.9 D Monocytes % 2.6 L Eosinophils % 0.5 Basophils % 0.4 Nucleated RBC % 0 VBG pH 7.36 POC VBG pCO2 45.2 POC VBG pO2 46.6 D Mixed VBG HCO3 25.0 Sodium 141 Potassium 4.2 Chloride 105 Carbon Dioxide 25 Anion Gap 11 BUN 17 Creatinine 0.8 Creat Clearance w eGFR > 60 POC Glucometer Random Glucose 246 H Calcium 8.5 Phosphorus Magnesium Total Bilirubin 0.5 AST 23 ALT 19 Alkaline Phosphatase 98 Total Protein 7.4 Albumin 3.3 L Lipase 52 L Urine Color Urine Appearance Urine pH Ur Specific [place] Urine Protein Urine Glucose (UA) Urine Ketones Urine Blood Urine Nitrite Urine Bilirubin Urine Urobilinogen Ur Leukocyte Esterase Urine WBC (Auto) Urine RBC (Auto) Ur Epithelial Cells Urine Bacteria Urine Mucus Stool Occult Blood 04/03/18 04/03/18 04/03/18 03:15 03:15 06:05 WBC 8.7 RBC 3.36 L Hgb 11.5 Hct 32.8 D MCV 97.5 H MCH 34.1 H MCHC 34.9 RDW 13.3 Plt Count 233 MPV 10.1 Absolute Neuts (auto) Neutrophils % Lymphocytes % Monocytes % Eosinophils % Basophils % Nucleated RBC % VBG pH POC VBG pCO2 POC VBG pO2 Mixed VBG HCO3 Sodium Potassium Chloride Carbon Dioxide Anion Gap BUN Creatinine Creat Clearance w eGFR POC Glucometer Random Glucose Calcium Phosphorus Magnesium Total Bilirubin AST ALT Alkaline Phosphatase Total Protein Albumin Lipase Urine Color Dkyellow Urine Appearance Clear Urine pH 5.0 Ur Specific [place] 1.038 H Urine Protein Negative Urine Glucose (UA) Negative Urine Ketones Negative Urine Blood 1+ H Urine Nitrite Negative Urine Bilirubin Negative Urine Urobilinogen 2.0 H Ur Leukocyte Esterase 2+ H Urine WBC (Auto) 16 Urine RBC (Auto) 5 Ur Epithelial Cells Rare Urine Bacteria Many Urine Mucus Rare Stool Occult Blood Positive 04/03/18 04/03/18 04/03/18 06:05 06:33 11:46 WBC RBC Hgb Hct MCV MCH MCHC RDW Plt Count MPV Absolute Neuts (auto) Neutrophils % Lymphocytes % Monocytes % Eosinophils % Basophils % Nucleated RBC % VBG pH POC VBG pCO2 POC VBG pO2 Mixed VBG HCO3 Sodium 141 Potassium 3.9 Chloride 105 Carbon Dioxide 29 Anion Gap 7 L BUN 15 Creatinine 0.7 Creat Clearance w eGFR > 60 POC Glucometer 132 155 Random Glucose 134 H Calcium 8.1 L Phosphorus 4.0 Magnesium 1.2 L Total Bilirubin AST ALT Alkaline Phosphatase Total Protein Albumin Lipase Urine Color Urine Appearance Urine pH Ur Specific [place] Urine Protein Urine Glucose (UA) Urine Ketones Urine Blood Urine Nitrite Urine Bilirubin Urine Urobilinogen Ur Leukocyte Esterase Urine WBC (Auto) Urine RBC (Auto) Ur Epithelial Cells Urine Bacteria Urine Mucus Stool Occult Blood 04/03/18 16:24 WBC RBC Hgb Hct MCV MCH MCHC RDW Plt Count MPV Absolute Neuts (auto) Neutrophils % Lymphocytes % Monocytes % Eosinophils % Basophils % Nucleated RBC % VBG pH POC VBG pCO2 POC VBG pO2 Mixed VBG HCO3 Sodium Potassium Chloride Carbon Dioxide Anion Gap BUN Creatinine Creat Clearance w eGFR POC Glucometer 133 Random Glucose Calcium Phosphorus Magnesium Total Bilirubin AST ALT Alkaline Phosphatase Total Protein Albumin Lipase Urine Color Urine Appearance Urine pH Ur Specific [place] Urine Protein Urine Glucose (UA) Urine Ketones Urine Blood Urine Nitrite Urine Bilirubin Urine Urobilinogen Ur Leukocyte Esterase Urine WBC (Auto) Urine RBC (Auto) Ur Epithelial Cells Urine Bacteria Urine Mucus Stool Occult Blood Active Medications Generic Name Dose Route Start Last Admin Trade Name Freq PRN Reason Stop Dose Admin Acetaminophen 650 mg 04/02/18 23:43 Tylenol - PO Q4H PRN PAIN Heparin Sodium (Porcine) 5,000 unit 04/03/18 06:00 04/03/18 14:27 Heparin - SQ 5,000 unit TID SHANIA Administration Lactated Ringer's 1,000 mls @ 83 mls/hr 04/02/18 23:45 04/03/18 03:37 Lactated Ringers Solution IV 83 mls/hr ASDIR SHANIA Administration Ciprofloxacin/Dextrose 400 mg in 200 mls @ 200 mls/hr 04/03/18 10:00 12:31 Cipro 400 Mg Premix Ivpb (Restricted To Id) IVPB 200 mls/hr BID SHANIA Administration Metronidazole 500 mg in 100 mls @ 100 mls/hr 04/03/18 03:00 04/03/18 14:30 Flagyl 500mg Premixed Ivpb - IVPB 100 mls/hr Q6H-IV SHANIA Administration Insulin Aspart 0 vial 04/03/18 07:00 04/03/18 16:25 Novolog Vial Sliding Scale - SQ Not Given [facility] Protocol Polyethylene Glycol 17 gm 04/03/18 14:00 04/03/18 14:27 Miralax (For Daily Use) - PO 17 gm TID SHANIA Administration ASSESSMENT/PLAN: 63 year old female hx of diabetes mellitus, b/l BKAs, and hyperlipidemia presents for 1 day hx of diarrhea and admitted for the treatment of acute colitis #Rectosigmoid Colitis vs acute enterocolitis c/b stercoral colitis: Acute onset symptoms suggestive of acute enterocolitis. Possible Rectosigmoid Colitis can be infectious vs inflammatory in nature, although CT evidence of large amount of stool in rectal vault is suggestive of stercoral colitis. Pt recieved enema and bowel regimen which improved her sxs. no fevers or leucocytosis, abdominal exam benign. -lactated ringers at 83cc/hr 1 bag -flagyl 500mg Q6h IVPB -ciprofloxacin 400mg Q12h IVPB -tylenol for pain -GI consul, Dr. Delaney -Stool C difficile neg. -PO/IV hydration and advance to BRAT diet. #Diabetes Mellitus: currently uncontrolled, patient did not take her diabetic medications today -blood glucose monitoring ACHS -insulin sliding scale as ordered -A1C in the morning -levemir 10U #Urinary Pressure: could be recurrent UTI. UA shows 2+ leuk est 16wbc -ucx oending -patient currently on ciprofloxacin, which will treat uncomplicated UTI with sensitive organisms #Hyperlipidemia: chronic -will confirm medications with [facility] in the AM #FEN -lactated ringers at 83cc/hr -lytes WNL -BRAT diet #Prophylaxis -heparin 5000subq TID #Disposition -med surg -Dispo in 24-48 hours if continues to improve and tolerating diet. Visit type - Emergency Visit Emergency Visit: Yes ED Registration Date: 04/03/18 Care time: The patient presented to the Emergency Department on the above date and was hospitalized for further evaluation of their emergent condition. - New Patient This patient is new to me today: Yes Date on this admission: 04/03/18 - Critical Care Critical Care patient: No
[2018-04-03] MEDS ORDERED: INSULIN (LEVEMIR) 100 UNITS/ML UNITS SQ SCH (22:00)
[2018-04-04] MEDS: LACTATED RINGERS SOLUTION 1,000 ML IV SCH (02:43)
[2018-04-04] MEDS: POLYETHYLENE GLYCOL 3350 119 GM BTL PO SCH ×2 (06:07→14:57)
[2018-04-04] MEDS: HEPARIN NA (PORCINE) 5,000 UNITS/ML 1ML VIAL SQ SCH ×2 (06:07→14:57)
[2018-04-04] MEDS: INSULIN SLIDING SCALE (NOVOLOG) 1 VIAL SQ SCH ×3 (06:08→17:38)
[2018-04-04 07:18] LABS: BASO % 0.8 % (0-2.0); HEMATOCRIT 30.9 % (32.4-45.2); HEMOGLOBIN 10.8 GM/dL (10.7-15.3); LYMPH % 44.1 % (8-40); MCH 34.2 pg (25.7-33.7); MCHC 34.8 g/dl (32.0-36.0); MEAN CELL VOLUME 98.2 fl (80-96); MEAN PLT VOLUME 9.9 fl (7.5-11.1); MONO % 6.6 % (3.8-10.2); NEUT % 45.5 % (42.8-82.8); PLATELET COUNT 211 K/MM3 (134-434); RBC 3.15 M/mm3 (3.60-5.2); RDW 13.5 % (11.6-15.6); WHITE BLOOD COUNT 5.3 K/mm3 (4.0-10.0)
[2018-04-04 08:00] LABS: CHLORIDE 105 mmol/L (98-107); POTASSIUM 3.5 mmol/L (3.5-5.1); SODIUM 141 mmol/L (136-145)
[2018-04-04 08:17] LABS: ALBUMIN 2.8 g/dl (3.4-5.0); ALK PHOS 70 U/L (45-117); ANION GAP 7 (8-16); BILIRUBIN,TOTAL 0.4 mg/dL (0.2-1.0); BLOOD UREA NITROGEN 8 mg/dL (7-18); CO2 29 mmol/L (21-32); CREATININE 0.8 mg/dL (0.55-1.02); GLUCOSE,RANDOM 113 mg/dL (74-106); SGOT/AST 21 U/L (15-37); SGPT/ALT 16 U/L (12-78); TOT PROT 6.2 g/dl (6.4-8.2)
--- NOTE | 2018-04-04 09:14 | EKG ---
Test Reason : Blood Pressure : / mmHG Vent. Rate : 073 BPM Atrial Rate : 073 BPM P-R Int : 162 ms QRS Dur : 072 ms QT Int : 394 ms P-R-T Axes : 059 002 029 degrees QTc Int : 434 ms POOR DATA QUALITY, INTERPRETATION MAY BE ADVERSELY AFFECTED NORMAL SINUS RHYTHM LOW VOLTAGE QRS BORDERLINE ECG WHEN COMPARED WITH ECG OF 18-FEB-2018 12:47, NO SIGNIFICANT CHANGE WAS FOUND Confirmed by SUMANTH MENJIVAR, SATNAM ([id number] on 04/04/2018 9:14:34 AM Referred By: Confirmed By:SATNAM JULIO MD
[2018-04-04 09:48] LABS: MAGNESIUM 1.5 mg/dL (1.8-2.4); PHOSPHOROUS 3.4 mg/dL (2.5-4.9)
[2018-04-04] MEDS ORDERED: PT OWN MED DRAWER 7, Y5N ONE (10:26)
[2018-04-04] MEDS: CIPROFLOXACIN 400 MG/D5W 400 MG/200 ML IVPB IVPB SCH (10:33)
[2018-04-04] MEDS ORDERED: MAGNESIUM OXIDE 400 MG TABLET (FP) PO ONE (13:17)
--- NOTE | 2018-04-04 13:21 | PN ---
Teaching Attending Note Name of Resident: René Forte ATTENDING PHYSICIAN STATEMENT I saw and evaluated the patient. I reviewed the resident's note and discussed the case with the resident. I agree with the resident's findings and plan as documented with exceptions below. SUBJECTIVE: Patient seen and examined. no nausesa, vomiting. Has had a few soft, non bloody bowel movements and feel much better. tolerating diet well. OBJECTIVE: Vital Signs Period Temp Pulse Resp BP Sys/Boykin Pulse Ox Last 24 Hr 97.9 F-98.5 F 71-74 18-20 110-126/49-74 98 Intake & Output 04/01/18 04/02/18 04/03/18 04/04/18 23:59 23:59 23:59 23:59 Intake Total 2196 850 Output Total 1500 320 Balance 696 530 Weight 400 lb 284 lb 9.6 oz General: sitting in bed in no acute distress Abdomen:Soft, obese, NT throughout, Positive bowel sounds no suprapubic or CVA tenderness Active Medications Acetaminophen (Tylenol -) 650 mg PO Q4H PRN PRN Reason: PAIN Heparin Sodium (Porcine) (Heparin -) 5,000 unit SQ TID [facility] Last Admin: 04/04/18 06:07 Dose: 5,000 unit Ciprofloxacin/Dextrose (Cipro 400 Mg Premix Ivpb (Restricted To Id)) 400 mg in 200 mls @ 200 mls/hr IVPB BID [facility] Last Admin: 04/04/18 10:33 Dose: 200 mls/hr Metronidazole (Flagyl 500mg Premixed Ivpb -) 500 mg in 100 mls @ 100 mls/hr IVPB Q6H-IV [facility] Last Admin: 04/04/18 10:32 Dose: 100 mls/hr Insulin Aspart (Novolog Vial Sliding Scale -) 0 vial SQ ACHS [facility]; Protocol Last Admin: 04/04/18 12:04 Dose: 4 units Insulin Detemir (Levemir Vial) 10 units SQ HS [facility] Last Admin: 04/03/18 21:39 Dose: 10 units Magnesium Oxide (Mag-Ox -) 800 mg PO ONCE ONE Stop: 04/04/18 13:18 Polyethylene Glycol (Miralax (For Daily Use) -) 17 gm PO TID [facility] Last Admin: 04/04/18 06:07 Dose: 17 gm Laboratory Results - last 24 hr 04/03/18 04/03/18 04/03/18 01:25 16:24 21:37 WBC RBC Hgb Hct MCV MCH MCHC RDW Plt Count MPV Absolute Neuts (auto) Neutrophils % Lymphocytes % Monocytes % Eosinophils % Basophils % Nucleated RBC % Sodium Potassium Chloride Carbon Dioxide Anion Gap BUN Creatinine Creat Clearance w eGFR POC Glucometer [phone] 136 Random Glucose Calcium Phosphorus Magnesium Total Bilirubin AST ALT Alkaline Phosphatase Total Protein Albumin 04/04/18 04/04/18 04/04/18 06:05 06:05 06:06 WBC 5.3 RBC 3.15 L Hgb 10.8 Hct 30.9 L MCV 98.2 H MCH 34.2 H MCHC 34.8 RDW 13.5 Plt Count 211 MPV 9.9 Absolute Neuts (auto) 2.4 Neutrophils % 45.5 D Lymphocytes % 44.1 H D Monocytes % 6.6 D Eosinophils % 3.0 D Basophils % 0.8 Nucleated RBC % 0 Sodium 141 Potassium 3.5 Chloride 105 Carbon Dioxide 29 Anion Gap 7 L BUN 8 Creatinine 0.8 Creat Clearance w eGFR > 60 POC Glucometer 112 Random Glucose 113 H Calcium 8.0 L Phosphorus 3.4 Magnesium 1.5 L Total Bilirubin 0.4 AST 21 ALT 16 Alkaline Phosphatase 70 D Total Protein 6.2 L Albumin 2.8 L 04/04/18 04/04/18 09:07 12:02 WBC RBC Hgb Hct MCV MCH MCHC RDW Plt Count MPV Absolute Neuts (auto) Neutrophils % Lymphocytes % Monocytes % Eosinophils % Basophils % Nucleated RBC % Sodium Potassium Chloride Carbon Dioxide Anion Gap BUN Creatinine Creat Clearance w eGFR POC Glucometer 209 Random Glucose Calcium Phosphorus Cancelled Magnesium Cancelled Total Bilirubin AST ALT Alkaline Phosphatase Total Protein Albumin Microbiology 04/03/18 03:15 Urine - Urine Clean Catch Urine Culture - Final NO GROWTH OBTAINED 04/03/18 03:15 Stool Clostridium difficile Antigen (COURTNEY) - Final 04/03/18 03:15 Stool Clostridium difficile Toxin Assay - Final ASSESSMENT AND PLAN: 63 yof with PMhx of IDDM, bilateral BKA, currently wheel chair bound, awaiting prosthesis, here with nausea, vomiting diarrhea, CT with ?enterocolitis and constipation with rectal thickening. -Severe constipation with rectal thickening, ?stercoral colitis -Acute enterocolitis, -IDDM -Bilateral BKA Plan: doing well, tolerating BRAT diet. Advance to diabetic diet. cipro/flagyl for 7 day coures. Change miralax to daily. Add docusate BID. Patient advised to ensure adequate fiber in diet GI input noted. Stool studies if further diarrhea. Stool C difficile neg. Home levemir, ISS, diabetic diet. Advised will need outpatient GI for possible colonoscopy and urology follow up Offered home VNS and PT, discussed with social work. DVTPPX with heparin Dispo d/c home later today if tolerating diet well. Plan discussed with patient in detail, all questions answered. Patient relays understanding and in agreement with the same.
--- NOTE | 2018-04-04 16:16 | DS ---
Physical Exam: SUBJECTIVE: Patient seen and examined at bedside. No acute events overnight, no complaints. Received bowel regimen and feeling much better and having large BM. Tolerating PO well. denies fever, chills , abd pain, CP, SOB, blood in stool, n/v/d OBJECTIVE: Vital Signs Period Temp Pulse Resp BP Sys/Boykin Pulse Ox Last 24 Hr 97.9 F-98.5 F 72-75 18-20 110-126/49-74 98 PHYSICAL EXAM GENERAL: A&Ox3, no acute distress EYES: PERRLA, EOMI ENT: MMM LUNGS: CTA, no wheezes HEART: RRR, harsh systolic murmur noted in 2nd R intercostal space ABDOMEN: Obese, soft, NTND, BS+ MUSCULOSKELETAL: Strength grossly intact EXTREMITIES: 2+ pulses, b/l BKAs, no edema NEUROLOGICAL: Cranial nerves II-XII intact. No focal deficits LABS Laboratory Results - last 24 hr 04/03/18 04/03/18 04/03/18 01:25 16:24 21:37 WBC RBC Hgb Hct MCV MCH MCHC RDW Plt Count MPV Absolute Neuts (auto) Neutrophils % Lymphocytes % Monocytes % Eosinophils % Basophils % Nucleated RBC % Sodium Potassium Chloride Carbon Dioxide Anion Gap BUN Creatinine Creat Clearance w eGFR POC Glucometer 212.97297 133 136 Random Glucose Calcium Phosphorus Magnesium Total Bilirubin AST ALT Alkaline Phosphatase Total Protein Albumin 04/04/18 04/04/18 04/04/18 06:05 06:05 06:06 WBC 5.3 RBC 3.15 L Hgb 10.8 Hct 30.9 L MCV 98.2 H MCH 34.2 H MCHC 34.8 RDW 13.5 Plt Count 211 MPV 9.9 Absolute Neuts (auto) 2.4 Neutrophils % 45.5 D Lymphocytes % 44.1 H D Monocytes % 6.6 D Eosinophils % 3.0 D Basophils % 0.8 Nucleated RBC % 0 Sodium 141 Potassium 3.5 Chloride 105 Carbon Dioxide 29 Anion Gap 7 L BUN 8 Creatinine 0.8 Creat Clearance w eGFR > 60 POC Glucometer 112 Random Glucose 113 H Calcium 8.0 L Phosphorus 3.4 Magnesium 1.5 L Total Bilirubin 0.4 AST 21 ALT 16 Alkaline Phosphatase 70 D Total Protein 6.2 L Albumin 2.8 L 04/04/18 04/04/18 09:07 12:02 WBC RBC Hgb Hct MCV MCH MCHC RDW Plt Count MPV Absolute Neuts (auto) Neutrophils % Lymphocytes % Monocytes % Eosinophils % Basophils % Nucleated RBC % Sodium Potassium Chloride Carbon Dioxide Anion Gap BUN Creatinine Creat Clearance w eGFR POC Glucometer 209 Random Glucose Calcium Phosphorus Cancelled Magnesium Cancelled Total Bilirubin AST ALT Alkaline Phosphatase Total Protein Albumin HOSPITAL COURSE: Date of Admission:04/03/18 Date of Discharge: 04/04/18 63 year old female hx of DM, b/l BKAs, and hyperlipidemia presents for 1 day hx of diarrhea and admitted for the treatment of acute colitis Pt was admitted for acute enterocolitis vs Rectosigmoid Colitis c/b stercoral colitis. Pt was afebrile, stable vitals, normal lipase, w/ benign abd exam and w / no leukocytosis. CT scan showed rectosigmoid colitis AND stool in the rectal vault suggestive of constipation/stercoral colitis. Pt was medically managed w/ IV fluids, bowel rest, empiric abx tx w/ ciprofloxacin and flagyl, and a GI ( parvin) consult. Pt received enema and aggressive bowel regimen which quickly relieved her constipation and improved her sxs. Pt was slowly advanced to BRAT, per GI rec, and then eventually advanced to regular foods. Pt was having good and regular BM. Stool C difficile was neg. Of note, pt was found to have UTI which was covered by ciprofloxacin tx. Pt is stable an ready for discharge. Minutes to complete discharge: 35 Discharge Summary Reason For Visit: DIARRHEA Current Active Problems Acute colitis (Acute) Infectious colitis (Acute) Hyperglycemia (Chronic) Condition: Stable - Instructions Diet, Activity, Other Instructions: You were found with colitis and severe constipation on your CT scan. Take antibiotic ciprofloxacin and flagyl as directed for 4 more days. Please ensure you take high fiber diet and take bowel regimen to ensure 1 bowel movement daily. Take colace twice daily, Take miralax once daily, can increase upto 3 times daily if no bowel movement in 2 days. Please follow up with corset fitter Dr. Delaney in 1-2 weeks to discuss outpatient colonoscopy. Advise outpatient urologist follow up to ensure you are empyting fully during urination. Continue home medications including insulin as before. Please call and make an appointment to follow up with your primary care physician in 1-2 weeks If you experience any worsening of diarrhea, blood in your stools, fevers, chills, nausea, vomiting,belly pain, inability to eat or any new concerns, Please call 911 or come to the ER. Referrals: Jl Delaney MD [Staff Physician] - 1 Week Disposition: VNS/HOME HEALTH CARE - Home Medications Comprehensive Discharge Medication List: Ambulatory Orders Insulin Glargine,Hum.rec.anlog [Lantus (10mL VIAL) -] 10 units SQ HS 04/03/18 Ciprofloxacin [Cipro -] 500 mg PO BID 4 Days #8 tablet 04/04/18 Docusate Sodium [Colace] 100 mg PO BID 30 Days #60 capsule 04/04/18 Magnesium Oxide [Magnesium] 800 mg PO DAILY 5 Days #5 tablet 04/04/18 Polyethylene Glycol 3350 [Miralax (For Daily Use) -] 17 gm PO DAILY #1 bottle metroNIDAZOLE [Flagyl -] 500 mg PO TID 4 Days #12 tablet 04/04/18 This patient is new to me today: Yes Date on this admission: 04/04/18 Emergency Visit: Yes ED Registration Date: 04/03/18 Care time: The patient presented to the Emergency Department on the above date and was hospitalized for further evaluation of their emergent condition. Critical Care patient: No - Discharge Referral Referred to [facility] Med P.[facility].: No
[2018-04-04 19:12] VITALS: BP 126/60; PULSE 74; TEMP 98.1
== END 2018-04-04 19:21 | disposition home health service (06) | DRG 249 ==
LOC: JER 16:02 → JERBED 22:43 → INTOOBSV 22:43 → OBSVTOIN 04-03 01:17 → J5S 04-03 02:39
PROVIDERS: ADMIT Internal Medicine; ATTEND Hospitalist
DX: K52.89 Other specified noninfective gastroenteritis and colitis (principal); E11.65 Type 2 diabetes mellitus with hyperglycemia; E78.5 Hyperlipidemia, unspecified; N39.498 Other specified urinary incontinence; A09 Infectious gastroenteritis and colitis, unspecified; R19.7 Diarrhea, unspecified; N39.0 Urinary tract infection, site not specified; E66.01 Morbid (severe) obesity due to excess calories; K59.09 Other constipation; R01.1 Cardiac murmur, unspecified; Z89.512 Acquired absence of left leg below knee; Z89.511 Acquired absence of right leg below knee; Z99.3 Dependence on wheelchair; Z68.41 Body mass index [BMI] 40.0-44.9, adult
CPT/HCPCS: 36415; 74177-TC; 80048; 80053; 81003; 81015; 82272; 82803; 82962; 83690; 83735; 84100; 85025; 85027; 87086; 87177; 87209; 87324; 87449; 93005; 93010; 99281-25; G0378; J1644

== ENCOUNTER 2019-05-17 11:08 | Inpatient (IN) | payer OTHER ==
--- NOTE | 2019-05-17 13:01 | PDOC ---
History of Present Illness - General Chief Complaint: Rectal Bleed Stated Complaint: ABD PAIN w/BLACK TARRY STOOL Time Seen by Provider: 05/17/19 12:54 - History of Present Illness Initial Comments: 05/17/19 15:31 The patient is a 64 year old female with a history of DM who presents for evaluation of dark stools. The patient reports a 3 day history of black tarry stools with associated 3 episodes of non-bloody vomiting prompting her presentation to the ED for further evaluation. She reports LLQ abdominal pain as well throughout this time period. She notes generalized weakness and associated lightheadedness. She otherwise denies fevers, chills, SOb, chest pain, or changes with urination. Past History - Past Medical History Allergies/Adverse Reactions: Allergies Allergy/AdvReac Type Severity Reaction Status Date / Time No Known Allergies Allergy Verified 05/17/19 16:38 Home Medications: Ambulatory Orders Unobtainable 05/17/19 COPD: No DVT: No Diabetes: Yes - Immunization History Immunization Up to Date: No - Suicide/Smoking/Psychosocial Hx Smoking History: Never smoked Have you smoked in the past 12 months: No Information on smoking cessation initiated: No Hx Alcohol Use: No Drug/Substance Use Hx: No Substance Use Type: None Review of Systems - Review of Systems Comments:: 05/17/19 16:02 Constitutional: Fatigue. No fevers, chills, malaise HEENT: No Rhinorrhea, nasal congestion, visual changes Cardiovascular: Lightheadedness. No chest pain, syncope, palpitations, Respiratory: No Cough, SOB, Hemoptysis, Gastrointestinal: Abdominal pain, Nausea, vomiting, Melena. No Constipation, Diarrhea, Genitourinary: No Dysuria, Frequency, Urgency, Hesitancy, Hematuria, Flank pain Musculoskeletal: No Myalgia, arthralgia Skin: No rashes, itching, bruising, pallor Neurologic: No Headache, Dizziness, Numbness, Weakness, or Tingling Psychiatric: No Hallucinations. No SI or HI *Physical Exam - Vital Signs Last Vital Signs Temp Pulse Resp BP Pulse Ox 99.1 F 98 H 16 125/64 98 05/17/19 11:27 05/17/19 11:27 05/17/19 11:27 05/17/19 11:27 05/17/19 11:27 - Physical Exam Comments: 05/17/19 16:03 General Appearance: Nourished. No Apparent Distress HEENT: No Pharyngeal Erythema, Tonsillar Exudate, Tonsillar Erythema Neck: No Cervical Lymphadenopathy Respiratory/Chest: Lungs Clear, Normal Breath Sounds. No Crackles, Rales, Rhonchi, Wheezing Cardiovascular: Regular Rhythm, Regular Rate. No Murmur, Gallops, Rubs Gastrointestinal/Abdominal: Normal Bowel Sounds, Soft. Tenderness to palpation in the LLQ. Melena noted on exam. No Guarding, Rebound, Musculoskeletal: No CVA Tenderness Extremity: Normal Capillary Refill Integumentary: Normal Color, Dry, Warm Neurologic: Fully Oriented, Alert, Normal Mood/Affect, Normal Response, Heart Score/ECG Review #1 ECG reviewed & interpreted by me at: 16:05 05/17/19 16:05 HR 98 AR 142 QRS 74 QTC 428 Sinus Rhythm with premature atrial complexes No Acute ST Changes ED Treatment Course - LABORATORY CBC & Chemistry Diagram: 05/17/19 14:00 05/17/19 14:00 Medical Decision Making - Medical Decision Making 05/17/19 16:05 The patient is a 64 year old female with a history of DM who presents for evaluation of dark stools. Differential includes but is not limited to: GI bleed, Diverticulitis, Infectious, Metabolic Derangement. Given the patient's history and physical exam, we will obtain a cbc, cmp, lipase, coags, type and screen CT abdomen/pelvis to evaluate further. We will treat with iv fluids and continue to monitor and reassess while here in the ED. 05/17/19 18:39 CBC demonstrates a wbc of 30. CMP, lipase is unremarkable. The patient was signed out to Dr. Guerra with the night team pending CT abdomen/pelvis and likely admission. *DC/Admit/Observation/Transfer Diagnosis at time of Disposition: Blood per rectum, Colitis - Discharge Dispostion Condition at time of disposition: Stable - Referrals - Patient Instructions - Post Discharge Activity
--- NOTE | 2019-05-17 13:02 | PDOC ---
Attending Attestation - Resident Resident Name: Jose Ruiz - HPI HPI: 05/17/19 15:06 pt presents to the ED complaining of dark, tarry stools and intermittent llq abdominal pain. without nausea or vomiting. 05/17/19 15:11 - Physicial Exam PE: 05/17/19 15:12 Agree with resident exam. patient is alert and oriented and in no acute distress. Abdomen is soft, non tender, non distended without guarding or rebound. - Medical Decision Making 05/17/19 15:11 Labs show no anemia, but show extremely elevated WBC count. Will check CT abdomen and UA to evaluate for infection. Will reassess. 05/17/19 15:11
[2019-05-17 14:08] LABS: BASO % 0.5 % (0-2.0); HEMATOCRIT 28.9 % (32.4-45.2); HEMOGLOBIN 9.7 GM/dL (10.7-15.3); LYMPH % 5.9 % (8-40); MCH 32.5 pg (25.7-33.7); MCHC 33.5 g/dl (32.0-36.0); MEAN CELL VOLUME 96.9 fl (80-96); MEAN PLT VOLUME 8.1 fl (7.5-11.1); MONO % 5.4 % (3.8-10.2); NEUT % 88.2 % (42.8-82.8); PLATELET COUNT 434 K/MM3 (134-434); RBC 2.98 M/mm3 (3.60-5.2); RDW 13.4 % (11.6-15.6)
[2019-05-17 14:11] LABS: WHITE BLOOD COUNT 30.4 K/mm3 (4.0-10.0)
[2019-05-17 14:21] LABS: INR 1.41 (0.83-1.09); PROTHROMBIN TIME (PATIENT) 16.7 SEC (9.7-13.0)
[2019-05-17 14:24] LABS: ACTIVATED PTT 35.3 SECONDS (25.2-36.5)
--- NOTE | 2019-05-17 14:29 | EKG ---
Test Reason : Blood Pressure : / mmHG Vent. Rate : 098 BPM Atrial Rate : 098 BPM P-R Int : 142 ms QRS Dur : 074 ms QT Int : 336 ms P-R-T Axes : 057 -10 027 degrees QTc Int : 428 ms SINUS RHYTHM WITH PREMATURE ATRIAL COMPLEXES MINIMAL VOLTAGE CRITERIA FOR LVH, MAY BE NORMAL VARIANT BORDERLINE ECG WHEN COMPARED WITH ECG OF 02-APR-2018 17:44, PREMATURE ATRIAL COMPLEXES ARE NOW PRESENT Confirmed by TETE MENJIVAR, ANDRES ([id number]) on 05/17/2019 2:28:36 PM Referred By: Confirmed By:ANDRES EPSTEIN MD
[2019-05-17 14:43] LABS: ALBUMIN 2.4 g/dl (3.4-5.0); BILIRUBIN,TOTAL 0.6 mg/dL (0.2-1); CALCIUM 8.7 mg/dL (8.5-10.1); POTASSIUM 4.9 mmol/L (3.5-5.1); TOT PROT 7.5 g/dl (6.4-8.2)
[2019-05-17] MEDS ORDERED: SODIUM CHLORIDE 1,000 ML IV STA (14:56)
[2019-05-17 15:14] LABS: ANISOCYTOSIS 1+; MACROCYTOSIS 1+; PLATELET ESTIMATE NORMAL
--- NOTE | 2019-05-17 19:36 | PDOC ---
*Physical Exam - Vital Signs Last Vital Signs Temp Pulse Resp BP Pulse Ox 98.0 F 88 18 131/74 98 05/17/19 15:00 05/17/19 15:00 05/17/19 15:00 05/17/19 15:00 05/17/19 15:00 - Physical Exam Comments: 05/17/19 19:36 GENERAL: Awake, alert, and fully oriented, in no acute distress HEAD: No signs of trauma, normocephalic, atraumatic EYES: PERRLA, EOMI, sclera anicteric, conjunctiva clear ENT: Auricles normal inspection, hearing grossly normal, nares patent, oropharynx clear without exudates. Moist mucosa NECK: Normal ROM, supple, no lymphadenopathy, JVD, or masses LUNGS: No distress, speaks full sentences, clear to auscultation bilaterally HEART: Regular rate and rhythm, normal S1 and S2, no murmurs, rubs or gallops, peripheral pulses normal and equal bilaterally. ABDOMEN: +LLQ abdominal ttp. Soft, NDS, normoactive bowel sounds. No guarding , no rebound. No masses EXTREMITIES : Normal inspection, Normal range of motion, no edema. No clubbing or cyanosis NEUROLOGICAL: Cranial nerves II through XII grossly intact. Normal speech, normal gait, no focal sensorimotor deficits SKIN: Warm, Dry, normal turgor, no rashes or lesions noted ED Treatment Course - LABORATORY CBC & Chemistry Diagram: 05/17/19 14:00 05/17/19 14:00 - ADDITIONAL ORDERS Additional order review: Laboratory Results 05/17/19 05/17/19 05/17/19 14:00 14:00 14:00 PT with INR Cancelled INR Cancelled PTT (Actin FS) Sodium 132 L Potassium 4.9 Chloride 98 Carbon Dioxide 21 Anion Gap 13 BUN 30.0 H Creatinine 2.0 H Est GFR (CKD-EPI)AfAm 29.83 Est GFR (CKD-EPI)NonAf 25.73 Random Glucose 308 H Calcium 8.7 Total Bilirubin 0.6 AST 19 ALT 11 L Alkaline Phosphatase 110 Creatine Kinase Troponin I Total Protein 7.5 Albumin 2.4 L Lipase Cancelled 37 L Stool Occult Blood 05/17/19 05/17/19 05/17/19 14:00 14:00 13:50 PT with INR 16.70 H INR 1.41 H PTT (Actin FS) 35.3 Sodium Potassium Chloride Carbon Dioxide Anion Gap BUN Creatinine Est GFR (CKD-EPI)AfAm Est GFR (CKD-EPI)NonAf Random Glucose Calcium Total Bilirubin AST ALT Alkaline Phosphatase Creatine Kinase 108 Troponin I < 0.02 Total Protein Albumin Lipase Stool Occult Blood Negative 05/17/19 14:00 RBC 2.98 L MCV 96.9 H MCHC 33.5 RDW 13.4 MPV 8.1 D Neutrophils % 88.2 H D Lymphocytes % 5.9 L D Monocytes % 5.4 Eosinophils % 0.0 D Basophils % 0.5 - RADIOLOGY Radiology Studies Ordered: 05/17/19 21:16 [facility] Name: [facility] DEPARTMENT OF RADIOLOGY Phys: Jose Ruiz RESIDENT : 1955 Age: 64 Sex: F [facility] Acct : [id number] Loc: [facility] Exam Date: 05/17/19 Status: [place] [address] Unit Number: [id number] EXAM#: TYPE/EXAM: RESULT: [id number] CT/ABDOMEN PELVIS CT W/O CONTR ADDENDUM * ADDENDUM #1 Addendum: The current urinary bladder volume is approximately 700 mL - ? prominent physiologic distention versus urinary retention. If clinically indicated correlate with pre - and post - void sonography. ORIGINAL REPORT Abdomen and pelvis CT without contrast Clinical information: left lower quadrant pain Multiplanar imaging was performed. Intravenous contrast was not administered. Oral contrast was administered although bowel opacification is limited. No evidence of pneumoperitoneum, free intraperitoneal fluid or bowel obstruction. There is no obvious abscess. There appears to be mild concentric rectal wall thickening which could be on the basis of proctitis. Note is also made of probable mild increased fluid within the rectum. No obvious perirectal edema is noted. In comparison to a prior CT study of 04/02/2018 note is made of resolution of rectosigmoid fecal retention. Interval development of a small amount of fluid is seen within the right pararenal fascia laterally. There also appears to be increased bilateral perirenal soft tissue stranding which is usually chronic in nature (versus secondary to acute infection/inflammation). Possible diverticulitis or colitis involving the sigmoid region described on the previous exam cannot be definitely appreciated currently. The remainder of the exam demonstrates no obvious interval change. Extensive atherosclerotic vascular calcifications are noted. Cholelithiasis is seen. Gallbladder contracted is noted which may be on the basis of chronic cholecystitis versus physiologic contraction. If clinically indicated sonographic correlation with optimal preparative fasting may be performed. The liver, spleen, pancreas, and adrenal glands demonstrate no gross noncontrast pathology. There is no aortic aneurysm. No gross lymphadenopathy is identified. There appears to be partial visualization of appendix which demonstrates no gross pathology. No gross small bowel abnormality is noted allowing for limited luminal contrast opacification. No gross adnexal pathology is visualized. Impression: There appears to be mild concentric rectal wall thickening which could be on the basis of acute proctitis. Correlate clinically. Note is also made of probable mild increased fluid within the rectal lumen. Interval development of a small amount of fluid is seen along the right pararenal fascia laterally. Extensive atherosclerotic facet calcifications are seen. Cholelithiasis with gallbladder contraction as noted above. Reported By: Alec Tolliver MD 05/17/19 [address] without contrast Clinical information: left lower quadrant pain Multiplanar imaging was performed. Intravenous contrast was not administered. Oral contrast was administered although bowel opacification is limited. No evidence of pneumoperitoneum, free intraperitoneal fluid or bowel obstruction. There is no obvious abscess. There appears to be mild concentric rectal wall thickening which could be on the basis of proctitis. Note is also made of probable mild increased fluid within the rectum. No obvious perirectal edema is noted. In comparison to a prior CT study of 04/02/2018 note is made of resolution of rectosigmoid fecal retention. Interval development of a small amount of fluid is seen within the right pararenal fascia laterally. There also appears to be increased bilateral perirenal soft tissue stranding which is usually chronic in nature (versus secondary to acute infection/inflammation). Possible diverticulitis or colitis involving the sigmoid region described on the previous exam cannot be definitely appreciated currently. The remainder of the exam demonstrates no obvious interval change. Extensive atherosclerotic vascular calcifications are noted. Cholelithiasis is seen. Gallbladder contracted is noted which may be on the basis of chronic cholecystitis versus physiologic contraction. If clinically indicated sonographic correlation with optimal preparative fasting may be performed. The liver, spleen, pancreas, and adrenal glands demonstrate no gross noncontrast pathology. There is no aortic aneurysm. No gross lymphadenopathy is identified. There appears to be partial visualization of appendix which demonstrates no gross pathology. No gross small bowel abnormality is noted allowing for limited luminal contrast opacification. No gross adnexal pathology is visualized. Impression: There appears to be mild concentric rectal wall thickening which could be on the basis of acute proctitis. Correlate clinically. Note is also made of probable mild increased fluid within the rectal lumen. Interval development of a small amount of fluid is seen along the right pararenal fascia laterally. Extensive atherosclerotic facet calcifications are seen. Cholelithiasis with gallbladder contraction as noted above. Reported By: Alec Tolliver MD 05/17/192102 Jose Ruiz Technologist: Leo Pierce Transcribed Date/Time: 05/17/192102 Batch Blender: Alec Tolliver Printed Date/Time: By: - Medications Given in the ED: ED Medications Discontinued Medications Generic Name Dose Route Start Last Admin Trade Name Freq PRN Reason Stop Dose Admin Sodium Chloride 1,000 mls @ 1,000 mls/hr 05/17/19 14:56 05/17/19 15:16 Normal Saline - IV 05/17/19 15:55 1,000 mls/hr ASDIR STA Administration Medical Decision Making - Medical Decision Making 05/17/19 19:36 64 yo F with h/o DM who p/w 3 days of dark, tarry, stools, NBNB emesis, and LLQ abdominal pain. HR 98, Vitals otherwise wnl, AF, A&Ox3. Ohysical exam notable for LLQ abdominal ttp. Not on AC. Patient endorsed by Dr. Ruiz. Pending labs , CTAP. FOBT negative despite melanotic appearing stools at bedside. DDx: Malignancy, diverticulosis, colitis, perforation vs. UGI bleed ( variceal, PUD ) . ED Course: 05/17/19 19:39 Laboratory Tests 05/17/19 05/17/19 05/17/19 13:50 14:00 14:00 WBC 30.4 H* Hgb 9.7 L Hct 28.9 L Plt Count 434 D Sodium 132 L Potassium 4.9 BUN 30.0 H Creatinine 2.0 H Random Glucose 308 H Total Bilirubin 0.6 AST 19 ALT 11 L Alkaline Phosphatase 110 Lipase 37 L Stool Occult Blood Negative 05/17/19 19:39 Impression: There appears to be mild concentric rectal wall thickening which could be on the basis of acute proctitis. Correlate clinically. Note is also made of probable mild increased fluid within the rectal lumen. Interval development of a small amount of fluid is seen along the right pararenal fascia laterally. Extensive atherosclerotic facet calcifications are seen. Cholelithiasis with gallbladder contraction as noted above. Reported By: Alec Tolliver MD 05/17/19 21:25 Zosyyeny 4.5 05/17/19 22:46 Patient endorsed to BRI[facility] veras, admit to [facility]. *DC/Admit/Observation/Transfer Diagnosis at time of Disposition: Blood per rectum, Colitis - Discharge Dispostion Condition at time of disposition: Stable Decision to Admit order: Yes - Referrals Referrals: Tatiana Dawson MD [Primary Care Provider] - - Patient Instructions - Post Discharge Activity
[2019-05-17] MEDS ORDERED: ONDANSETRON 4 MG/2 ML VIAL IVPB ONE (20:37)
[2019-05-17] MEDS ORDERED: ONDANSETRON 4 MG/2 ML VIAL ONE (20:43)
[2019-05-17] MEDS ORDERED: PIPERACILLIN/TAZOB 4.5 GM 4.5 GM in DEXTROSE 5%-WATER 100 ML IVPB ONE (21:24)
--- NOTE | 2019-05-17 21:33 | PDOC ---
*Physical Exam - Vital Signs Last Vital Signs Temp Pulse Resp BP Pulse Ox 98.0 F 108 H 20 128/75 95 05/17/19 15:00 05/17/19 20:12 05/17/19 20:12 05/17/19 20:12 05/17/19 20:12 ED Treatment Course - LABORATORY CBC & Chemistry Diagram: 05/17/19 14:00 05/17/19 14:00 - ADDITIONAL ORDERS Additional order review: Laboratory Results 05/17/19 05/17/19 05/17/19 14:00 14:00 14:00 PT with INR Cancelled INR Cancelled PTT (Actin FS) Sodium 132 L Potassium 4.9 Chloride 98 Carbon Dioxide 21 Anion Gap 13 BUN 30.0 H Creatinine 2.0 H Est GFR (CKD-EPI)AfAm 29.83 Est GFR (CKD-EPI)NonAf 25.73 Random Glucose 308 H Calcium 8.7 Total Bilirubin 0.6 AST 19 ALT 11 L Alkaline Phosphatase 110 Creatine Kinase Troponin I Total Protein 7.5 Albumin 2.4 L Lipase Cancelled 37 L Stool Occult Blood 05/17/19 05/17/19 05/17/19 14:00 14:00 13:50 PT with INR 16.70 H INR 1.41 H PTT (Actin FS) 35.3 Sodium Potassium Chloride Carbon Dioxide Anion Gap BUN Creatinine Est GFR (CKD-EPI)AfAm Est GFR (CKD-EPI)NonAf Random Glucose Calcium Total Bilirubin AST ALT Alkaline Phosphatase Creatine Kinase 108 Troponin I < 0.02 Total Protein Albumin Lipase Stool Occult Blood Negative 05/17/19 14:00 RBC 2.98 L MCV 96.9 H MCHC 33.5 RDW 13.4 MPV 8.1 D Neutrophils % 88.2 H D Lymphocytes % 5.9 L D Monocytes % 5.4 Eosinophils % 0.0 D Basophils % 0.5 - Medications Given in the ED: ED Medications Discontinued Medications Generic Name Dose Route Start Last Admin Trade Name Freq PRN Reason Stop Dose Admin Sodium Chloride 1,000 mls @ 1,000 mls/hr 05/17/19 14:56 05/17/19 15:16 Normal Saline - IV 05/17/19 15:55 1,000 mls/hr ASDIR STA Administration Ondansetron HCl 4 mg 05/17/19 20:37 05/17/19 20:49 Zofran Injection IVPB 05/17/19 20:38 4 mg ONCE ONE Administration Medical Decision Making - Medical Decision Making 05/17/19 21:33 ct scan abd/pel : possible proctitis?\ vs colitis rectal wall thickening 05/17/19 21:34 has a leukocytosis of 30,000, and an anemia,KEYSHA and glucose above 300. Patient will be admitted med/surg 05/17/19 21:44 *DC/Admit/Observation/Transfer Diagnosis at time of Disposition: Blood per rectum - Discharge Dispostion Condition at time of disposition: Stable - Referrals Referrals: Tatiana Dawson MD [Primary Care Provider] - - Patient Instructions - Post Discharge Activity
[2019-05-17] MEDS ORDERED: PIPERACILLIN/TAZOB 4.5 GM 4.5 GM/100 ML BAG IVPB ONE (22:01)
--- NOTE | 2019-05-17 22:59 | HP ---
Admitting History and Physical - Primary Care Physician PCP: Tatiana Dawson ([facility]) - Admission Chief Complaint: Bloody Diarrhea, Vomiting History of Present Illness: This is a 64 y/o woman with a PMHx of DM. Who presents to the ED with abdominal pain x3 days, bloody diarrhea, NB emesis. Patient reports taking Pepto Bismol for stomach upset recently. She also reports having chills and dizziness. Patient denies fever, SOB, CP, palpitations, constipation, dysuria. Patient denies exposure to sick contacts, or recent travel. History Source: Patient Limitations to Obtaining History: No Limitations - Past Medical History Endocrine: Yes: Diabetes Mellitus - Past Surgical History Past Surgical History: Yes: Amputation (b/l BKA) - Smoking History Smoking history: Never smoked Have you smoked in the past 12 months: No - Alcohol/Substance Use Hx Alcohol Use: No History of Substance Use: reports: None - Social History Usual Living Arrangement: Yes: With Child ADL: Family Assistance History of Recent Travel: No Home Medications - Allergies Allergies/Adverse Reactions: Allergies Allergy/AdvReac Type Severity Reaction Status Date / Time No Known Allergies Allergy Verified 05/17/19 16:38 - Home Medications Home Medications: Ambulatory Orders Unobtainable 05/17/19 Family Medical History Family Hx Diabetes: Mother, Father Family Hx Nuerologic Problems: Mother (CVA) Review of Systems - Review of Systems Constitutional: reports: No Symptoms Eyes: reports: No Symptoms HENT: reports: No Symptoms Neck: reports: No Symptoms Cardiovascular: reports: No Symptoms Respiratory: reports: No Symptoms Gastrointestinal: reports: Abdominal Pain, Diarrhea, Vomiting Breasts: reports: No Symptoms Reported Musculoskeletal: reports: No Symptoms Integumentary: reports: No Symptoms Neurological: reports: No Symptoms Endocrine: reports: No Symptoms Hematology/Lymphatic: reports: No Symptoms Psychiatric: reports: No Symptoms Pain Intensity: 4 Physical Examination Vital Signs: Vital Signs Temperature 98.0 F 05/17/19 15:00 Pulse Rate 108 H 05/17/19 20:12 Respiratory Rate 05/17/19 20:12 Blood Pressure 128/75 05/17/19 20:12 O2 Sat by Pulse Oximetry (%) 95 05/17/19 20:12 Constitutional: Yes: Well Nourished, No Distress, Calm Eyes: Yes: WNL, Conjunctiva Clear, EOM Intact, PERRL HENT: Yes: WNL, Atraumatic, Normocephalic Neck: Yes: WNL, Supple, Trachea Midline Cardiovascular: Yes: WNL, Regular Rate and Rhythm, S1, S2 Respiratory: Yes: WNL, Regular, CTA Bilaterally Gastrointestinal: Yes: Normal Bowel Sounds, Soft, Abdomen, Obese ...Rectal Exam: Yes: Guaiac Negative Extremities: Yes: Amputation (b/l AKA) Neurological: Yes: WNL, Alert, Oriented, Cran Nerves II-XII Intact ...Motor Strength: LUE, RUE Psychiatric: Yes: WNL, Alert, Oriented Labs: CBC, BMP 05/17/19 14:00 05/17/19 14:00 Imaging - Results Chest X-ray: Pending Cat Scan: Image Reviewed EKG: Pending Problem List - Problems (1) Acute colitis Assessment/Plan: CTAP- acute proctitis vs acute colitis Appreciate GI consult Consider Surgical consult if condition worsens Zosyn given in ED, will continue Appreciate ID consult IVF Stool Occult- neg Stool Culture, O&P Monitor CBC, BMP Monitor vitals Code(s): K52.9 - NONINFECTIVE GASTROENTERITIS AND COLITIS, UNSPECIFIED (2) Diarrhea Assessment/Plan: see above Code(s): R19.7 - DIARRHEA, UNSPECIFIED (3) Vomiting Assessment/Plan: Likely gastritis CTAP- acute proctitis vs acute colitis Code(s): R11.10 - VOMITING, UNSPECIFIED (4) Diabetes mellitus Assessment/Plan: sub optimal BGMs ISS Code(s): E11.9 - TYPE 2 DIABETES MELLITUS WITHOUT COMPLICATIONS Assessment/Plan This is a 64 y/o woman with a PMHx of DM. Admitted for Acute Colitis, Leukocytosis, Anemia for further evaluation of their emergent condition. Plan: See Problem List FEN NS@100ml/hr Replete lytes prn NPO DVT ppx OOB SCDs Hold AC secondary to Anemia/Hematemesis Dispo: Requires Inpatient Care Visit type - Emergency Visit Emergency Visit: Yes ED Registration Date: 05/17/19 Care time: The patient presented to the Emergency Department on the above date and was hospitalized for further evaluation of their emergent condition. - New Patient This patient is new to me today: Yes Date on this admission: 05/17/19 - Critical Care Critical Care patient: No
[2019-05-17] MEDS: SODIUM CHLORIDE 1,000 ML IV SCH (23:18)
[2019-05-17 23:46] LABS: EPI CELLS 23.9 /HPF (0-5/HPF); HYALINE CASTS 124 /lpf (0-8); URINE APPEARANCE TURBID; URINE BACTERIA 4077.3 /hpf (NEGATIVE); URINE BILIRUBIN NEGATIVE (NEGATIVE); URINE COLOR YELLOW; URINE GLUCOSE (UA) NEGATIVE (NEGATIVE); URINE KETONE NEGATIVE (NEGATIVE); URINE LEUK ESTERASE 3+ (NEGATIVE); URINE NITRITE NEGATIVE (NEGATIVE); URINE PROTEIN 2+ (NEGATIVE); URINE UROBILINOGEN 0.2 mg/dL (0.2-1.0); URINE WBC 4204 /hpf (0-5)
[2019-05-18 01:19] LABS: URINE RBC 107.6 /hpf (0-4)
[2019-05-18 01:20] LABS: YEAST NONE SEEN (NEGATIVE)
[2019-05-18 10:24] LABS: BASO % 0.5 % (0-2.0); EOS % 0.1 % (0-4.5); HEMATOCRIT 26.3 % (32.4-45.2); HEMOGLOBIN 8.7 GM/dL (10.7-15.3); LYMPH % 5.1 % (8-40); MCH 32.2 pg (25.7-33.7); MCHC 33.3 g/dl (32.0-36.0); MEAN CELL VOLUME 96.8 fl (80-96); MEAN PLT VOLUME 8.7 fl (7.5-11.1); MONO % 4.9 % (3.8-10.2); NEUT % 89.4 % (42.8-82.8); PLATELET COUNT 361 K/MM3 (134-434); RBC 2.71 M/mm3 (3.60-5.2); RDW 13.4 % (11.6-15.6); WHITE BLOOD COUNT 23.6 K/mm3 (4.0-10.0)
[2019-05-18 10:54] LABS: BLOOD UREA NITROGEN 30.7 mg/dL (7-18); CALCIUM 7.6 mg/dL (8.5-10.1); CREATININE 1.6 mg/dL (0.55-1.3); POTASSIUM 3.5 mmol/L (3.5-5.1)
--- NOTE | 2019-05-18 11:56 | PN ---
Progress Note (short form) - Note Progress Note: Pt having blood stools No abd pain Feels weak No nausea Vital Signs - 24 hr 05/17/19 05/17/19 05/17/19 15:00 20:12 22:08 Temperature 98.0 F 97.7 F Pulse Rate 101 H Pulse Rate [ 88 108 H Right] Respiratory 18 20 20 Rate Blood Pressure 121/67 Blood Pressure 131/74 128/75 [Right Arm] O2 Sat by Pulse 98 95 96 Oximetry (%) 05/17/19 05/17/19 05/18/19 22:35 23:00 04:00 Temperature 99.3 F Pulse Rate Pulse Rate [ 92 H Right] Respiratory 20 20 Rate Blood Pressure Blood Pressure 123/52 L [Right Arm] O2 Sat by Pulse 98 93 L 93 L Oximetry (%) 05/18/19 08:10 Temperature Pulse Rate 100 H Pulse Rate [ Right] Respiratory 20 Rate Blood Pressure 123/68 Blood Pressure [Right Arm] O2 Sat by Pulse Oximetry (%) Current Medications Generic Name Dose Route Start Last Admin Trade Name Freq PRN Reason Stop Dose Admin Acetaminophen 1,000 mg 05/18/19 11:55 Ofirmev Injection - IVPB Q6H PRN FEVER Sodium Chloride 1,000 mls @ 100 mls/hr 05/17/19 23:00 05/17/19 23:18 Normal Saline - IV 100 mls/hr ASDIR SHANAI Administration Piperacillin Sod/Tazobactam 50 mls @ 100 mls/hr 05/18/19 10:00 Sod 3.375 gm/ Dextrose IVPB Q8H-IV SHANIA Protocol Laboratory Results - last 24 hr 05/17/19 05/17/19 05/17/19 13:50 14:00 14:00 WBC RBC Hgb Hct MCV MCH MCHC RDW Plt Count MPV Absolute Neuts (auto) Neutrophils % Neutrophils % (Manual) Band Neutrophils % Lymphocytes % Lymphocytes % (Manual) Monocytes % Monocytes % (Manual) Eosinophils % Eosinophils % (Manual) Basophils % Basophils % (Manual) Myelocytes % (Man) Promyelocytes % (Man) Blast Cells % (Manual) Nucleated RBC % Metamyelocytes Hypochromia Platelet Estimate Polychromasia Poikilocytosis Anisocytosis Microcytosis Macrocytosis PT with INR 16.70 H INR 1.41 H PTT (Actin FS) 35.3 Sodium Potassium Chloride Carbon Dioxide Anion Gap BUN Creatinine Est GFR (CKD-EPI)AfAm Est GFR (CKD-EPI)NonAf Random Glucose Lactic Acid Calcium Total Bilirubin AST ALT Alkaline Phosphatase Creatine Kinase 108 Troponin I < 0.02 Total Protein Albumin Total Amylase Lipase Urine Color Urine Appearance Urine pH Ur Specific [place] Urine Protein Urine Glucose (UA) Urine Ketones Urine Blood Urine Nitrite Urine Bilirubin Urine Urobilinogen Ur Leukocyte Esterase Urine WBC (Auto) Urine RBC (Auto) Urine Casts (Auto) U Pathogenic Cast Auto U Epithel Cells (Auto) Urine Bacteria (Auto) Urine Yeast (Auto) Stool Occult Blood Negative Blood Type Antibody Screen 05/17/19 05/17/19 05/17/19 14:00 14:00 14:00 WBC 30.4 H* RBC 2.98 L Hgb 9.7 L Hct 28.9 L MCV 96.9 H MCH 32.5 MCHC 33.5 RDW 13.4 Plt Count 434 D MPV 8.1 D Absolute Neuts (auto) 26.8 H Neutrophils % 88.2 H D Neutrophils % (Manual) 79.4 Band Neutrophils % 5.2 Lymphocytes % 5.9 L D Lymphocytes % (Manual) 10.3 Monocytes % 5.4 Monocytes % (Manual) 4 Eosinophils % 0.0 D Eosinophils % (Manual) 0.0 Basophils % 0.5 Basophils % (Manual) 0.0 Myelocytes % (Man) 0 Promyelocytes % (Man) 0 Blast Cells % (Manual) 0 Nucleated RBC % 0 Metamyelocytes 0 Hypochromia 0 Platelet Estimate Normal Polychromasia 0 Poikilocytosis 0 Anisocytosis 1+ Microcytosis 0 Macrocytosis 1+ PT with INR INR PTT (Actin FS) Sodium 132 L Potassium 4.9 Chloride 98 Carbon Dioxide 21 Anion Gap 13 BUN 30.0 H Creatinine 2.0 H Est GFR (CKD-EPI)AfAm 29.83 Est GFR (CKD-EPI)NonAf 25.73 Random Glucose 308 H Lactic Acid Calcium 8.7 Total Bilirubin 0.6 AST 19 ALT 11 L Alkaline Phosphatase 110 Creatine Kinase Troponin I Total Protein 7.5 Albumin 2.4 L Total Amylase Lipase 37 L Cancelled Urine Color Urine Appearance Urine pH Ur Specific [place] Urine Protein Urine Glucose (UA) Urine Ketones Urine Blood Urine Nitrite Urine Bilirubin Urine Urobilinogen Ur Leukocyte Esterase Urine WBC (Auto) Urine RBC (Auto) Urine Casts (Auto) U Pathogenic Cast Auto U Epithel Cells (Auto) Urine Bacteria (Auto) Urine Yeast (Auto) Stool Occult Blood Blood Type Antibody Screen 05/17/19 05/17/19 05/17/19 14:00 22:50 23:00 WBC RBC Hgb Hct MCV MCH MCHC RDW Plt Count MPV Absolute Neuts (auto) Neutrophils % Neutrophils % (Manual) Band Neutrophils % Lymphocytes % Lymphocytes % (Manual) Monocytes % Monocytes % (Manual) Eosinophils % Eosinophils % (Manual) Basophils % Basophils % (Manual) Myelocytes % (Man) Promyelocytes % (Man) Blast Cells % (Manual) Nucleated RBC % Metamyelocytes Hypochromia Platelet Estimate Polychromasia Poikilocytosis Anisocytosis Microcytosis Macrocytosis PT with INR Cancelled INR Cancelled PTT (Actin FS) Sodium Potassium Chloride Carbon Dioxide Anion Gap BUN Creatinine Est GFR (CKD-EPI)AfAm Est GFR (CKD-EPI)NonAf Random Glucose Lactic Acid Calcium Total Bilirubin AST ALT Alkaline Phosphatase Creatine Kinase Troponin I Total Protein Albumin Total Amylase Lipase Urine Color Yellow Urine Appearance Turbid Urine pH 6.0 Ur Specific [place] 1.011 Urine Protein 2+ H Urine Glucose (UA) Negative Urine Ketones Negative Urine Blood 2+ H Urine Nitrite Negative Urine Bilirubin Negative Urine Urobilinogen 0.2 Ur Leukocyte Esterase 3+ H Urine WBC (Auto) 4204 Urine RBC (Auto) 107.6 Urine Casts (Auto) 124 U Pathogenic Cast Auto None seen U Epithel Cells (Auto) 23.9 Urine Bacteria (Auto) 4077.3 Urine Yeast (Auto) None seen Stool Occult Blood Blood Type O NEGATIVE Antibody Screen Negative 05/17/19 05/18/19 05/18/19 23:32 09:40 09:40 WBC 23.6 H RBC 2.71 L Hgb 8.7 L Hct 26.3 L MCV 96.8 H MCH 32.2 MCHC 33.3 RDW 13.4 Plt Count 361 MPV 8.7 Absolute Neuts (auto) 21.2 H Neutrophils % 89.4 H Neutrophils % (Manual) Band Neutrophils % Lymphocytes % 5.1 L Lymphocytes % (Manual) Monocytes % 4.9 Monocytes % (Manual) Eosinophils % 0.1 D Eosinophils % (Manual) Basophils % 0.5 Basophils % (Manual) Myelocytes % (Man) Promyelocytes % (Man) Blast Cells % (Manual) Nucleated RBC % 0 Metamyelocytes Hypochromia Platelet Estimate Polychromasia Poikilocytosis Anisocytosis Microcytosis Macrocytosis PT with INR INR PTT (Actin FS) Sodium Potassium Chloride Carbon Dioxide Anion Gap BUN Creatinine Est GFR (CKD-EPI)AfAm Est GFR (CKD-EPI)NonAf Random Glucose Lactic Acid 1.3 Calcium Total Bilirubin AST ALT Alkaline Phosphatase Creatine Kinase Troponin I Total Protein Albumin Total Amylase Lipase Urine Color Urine Appearance Urine pH Ur Specific [place] Urine Protein Urine Glucose (UA) Urine Ketones Urine Blood Urine Nitrite Urine Bilirubin Urine Urobilinogen Ur Leukocyte Esterase Urine WBC (Auto) Urine RBC (Auto) Urine Casts (Auto) U Pathogenic Cast Auto U Epithel Cells (Auto) Urine Bacteria (Auto) Urine Yeast (Auto) Stool Occult Blood Blood Type O NEGATIVE Antibody Screen 05/18/19 09:40 WBC RBC Hgb Hct MCV MCH MCHC RDW Plt Count MPV Absolute Neuts (auto) Neutrophils % Neutrophils % (Manual) Band Neutrophils % Lymphocytes % Lymphocytes % (Manual) Monocytes % Monocytes % (Manual) Eosinophils % Eosinophils % (Manual) Basophils % Basophils % (Manual) Myelocytes % (Man) Promyelocytes % (Man) Blast Cells % (Manual) Nucleated RBC % Metamyelocytes Hypochromia Platelet Estimate Polychromasia Poikilocytosis Anisocytosis Microcytosis Macrocytosis PT with INR INR PTT (Actin FS) Sodium 137 Potassium 3.5 Chloride 103 Carbon Dioxide 21 Anion Gap 12 BUN 30.7 H Creatinine 1.6 H Est GFR (CKD-EPI)AfAm 39.06 Est GFR (CKD-EPI)NonAf 33.70 Random Glucose 327 H Lactic Acid Calcium 7.6 L Total Bilirubin AST ALT Alkaline Phosphatase Creatine Kinase Troponin I Total Protein Albumin Total Amylase 22 L Lipase 34 L Urine Color Urine Appearance Urine pH Ur Specific [place] Urine Protein Urine Glucose (UA) Urine Ketones Urine Blood Urine Nitrite Urine Bilirubin Urine Urobilinogen Ur Leukocyte Esterase Urine WBC (Auto) Urine RBC (Auto) Urine Casts (Auto) U Pathogenic Cast Auto U Epithel Cells (Auto) Urine Bacteria (Auto) Urine Yeast (Auto) Stool Occult Blood Blood Type Antibody Screen S1 S2 RRR Lungs clear Abd- soft, obese, NT No edema B/L AKA PLAN check CBC now keep NPO Protonix GI eval ICU evaluation iv fluids Problem List - Problems (1) Blood per rectum Code(s): K62.5 - HEMORRHAGE OF ANUS AND RECTUM (2) Colitis Code(s): K52.9 - NONINFECTIVE GASTROENTERITIS AND COLITIS, UNSPECIFIED (3) Diabetes mellitus Code(s): E11.9 - TYPE 2 DIABETES MELLITUS WITHOUT COMPLICATIONS
[2019-05-18 12:27] LABS: ANISOCYTOSIS 1+; MACROCYTOSIS 1+; OVALOCYTE 1+; PLATELET ESTIMATE NORMAL
[2019-05-18 12:34] LABS: HEMATOCRIT 25.9 % (32.4-45.2); HEMOGLOBIN 8.5 GM/dL (10.7-15.3); MCH 31.6 pg (25.7-33.7); MCHC 32.8 g/dl (32.0-36.0); MEAN CELL VOLUME 96.3 fl (80-96); MEAN PLT VOLUME 8.1 fl (7.5-11.1); PLATELET COUNT 358 K/MM3 (134-434); RBC 2.69 M/mm3 (3.60-5.2); RDW 13.6 % (11.6-15.6); WHITE BLOOD COUNT 24.6 K/mm3 (4.0-10.0)
[2019-05-18] MEDS: ACETAMINOPHEN 1000 MG/100 ML VIAL (NON FORMULARY) IVPB PRN (12:48)
[2019-05-18] MEDS ORDERED: PANTOPRAZOLE SODIUM 40 MG VIAL IVPUSH SCH (13:15)
--- NOTE | 2019-05-18 14:17 | CONSULT ---
Consultation: REQUESTING PROVIDER: Dr Georgie Macedo CONSULT REQUEST: We have been asked to medically evaluate this patient for (GI Bleed). HISTORY OF PRESENT ILLNESS: Pt is a 64 y/o F with a PMH of IDDM who initially presented to [facility] due to 3 days of dark stools as well as weakness and lightheadedness. Pt endorses that she has never experienced these symptoms before. Pt also endorses that she has been experiencing abdominal pain for a few days prior to the onset of her dark colored stool. Pt endorses taking up to " 6 pills a day" of Advil for her abdominal pain. Furthermore, pt also states she has been experiencing a sensation of unfilled bladder emptying for a few days as well. Denies fever, chills, weight loss, shortness of breath, chest pain, or BRBP. Last colonoscopy was [address] [facility]. Reportedly pt had 2 polyps which were not removed and has previously stated her Supervisor Pumping informed her to get a followup colonoscopy in 5 years (1 more year). ICU has been consulted for continued melanotic stool, most recent episode this AM. REVIEW OF SYSTEMS: CONSTITUTIONAL: PRESENT: generalized weakness, malaise HEENT: Absent: rhinorrhea, nasal congestion, throat pain, throat swelling, difficulty swallowing, mouth swelling, ear pain, eye pain, visual changes CARDIOVASCULAR: Absent: chest pain, syncope, palpitations, irregular heart rate, lightheadedness , peripheral edema RESPIRATORY: Absent: cough, shortness of breath, dyspnea with exertion, orthopnea, wheezing, stridor, hemoptysis GASTROINTESTINAL: PRESENT: nausea, vomiting, melena GENITOURINARY: Absent: dysuria, frequency, urgency, hesitancy, hematuria, flank pain, genital pain MUSCULOSKELETAL: Absent: myalgia, arthralgia, joint swelling, back pain, neck pain SKIN: Absent: rash, itching, pallor HEMATOLOGIC/IMMUNOLOGIC: Absent: easy bleeding, easy bruising, lymphadenopathy, frequent infections ENDOCRINE: Absent: unexplained weight gain, unexplained weight loss, heat intolerance, cold intolerance NEUROLOGIC: Absent: headache, focal weakness or paresthesias, dizziness, unsteady gait, seizure, mental status changes, bladder or bowel incontinence PSYCHIATRIC: Absent: anxiety, depression, suicidal or homicidal ideation, hallucinations. PHYSICAL EXAMINATION Vital Signs - 24 hr 05/17/19 05/17/19 05/17/19 15:00 20:12 22:08 Temperature 98.0 F 97.7 F Pulse Rate 101 H Pulse Rate [ 88 108 H Right] Respiratory 18 20 20 Rate Blood Pressure 121/67 Blood Pressure 131/74 128/75 [Right Arm] O2 Sat by Pulse 98 95 96 Oximetry (%) 05/17/19 05/17/19 05/18/19 22:35 23:00 04:00 Temperature 99.3 F Pulse Rate Pulse Rate [ 92 H Right] Respiratory 20 20 Rate Blood Pressure Blood Pressure 123/52 L [Right Arm] O2 Sat by Pulse 98 93 L 93 L Oximetry (%) 05/18/19 08:10 Temperature Pulse Rate 100 H Pulse Rate [ Right] Respiratory 20 Rate Blood Pressure 123/68 Blood Pressure [Right Arm] O2 Sat by Pulse Oximetry (%) GENERAL: NAD AAOX3 HEAD: Normal with no signs of trauma. EYES: EOMI Sclera Clear EARS, NOSE, THROAT: MMM LUNGS: CTAB HEART: RRR S1S2 ABDOMEN: No epigastric tenderness, Nondistended nontender, obese LOWER EXTREMITIES: bilateral knee amputations. Stumps appear clean and non irritated NEUROLOGICAL: Cranial nerves II-XII intact. Normal speech. Normal gait. RECTAL: No apparent external hemmorhoids or lesions seen. Dark, watery stool in rectal vault. Skin breakdown near rectum ~ stage 1. PSYCHIATRIC: Cooperative. Good eye contact. Appropriate mood and affect. SKIN: Warm, dry, normal turgor, no rashes or lesions noted. Laboratory Results - last 24 hr 05/17/19 05/17/19 05/17/19 14:00 14:00 14:00 WBC RBC Hgb Hct MCV MCH MCHC RDW Plt Count MPV Absolute Neuts (auto) Neutrophils % Neutrophils % (Manual) 79.4 Band Neutrophils % 5.2 Lymphocytes % Lymphocytes % (Manual) 10.3 Monocytes % Monocytes % (Manual) 4 Eosinophils % Eosinophils % (Manual) 0.0 Basophils % Basophils % (Manual) 0.0 Myelocytes % (Man) 0 Promyelocytes % (Man) 0 Blast Cells % (Manual) 0 Nucleated RBC % Metamyelocytes 0 Hypochromia 0 Platelet Estimate Normal Polychromasia 0 Poikilocytosis 0 Anisocytosis 1+ Microcytosis 0 Macrocytosis 1+ Ovalocytes PT with INR 16.70 H INR 1.41 H PTT (Actin FS) 35.3 Sodium Potassium Chloride Carbon Dioxide Anion Gap BUN Creatinine Est GFR (CKD-EPI)AfAm Est GFR (CKD-EPI)NonAf Random Glucose Lactic Acid Calcium Total Bilirubin AST ALT Alkaline Phosphatase Creatine Kinase 108 Troponin I < 0.02 Total Protein Albumin Total Amylase Lipase Urine Color Urine Appearance Urine pH Ur Specific [place] Urine Protein Urine Glucose (UA) Urine Ketones Urine Blood Urine Nitrite Urine Bilirubin Urine Urobilinogen Ur Leukocyte Esterase Urine WBC (Auto) Urine RBC (Auto) Urine Casts (Auto) U Pathogenic Cast Auto U Epithel Cells (Auto) Urine Bacteria (Auto) Urine Yeast (Auto) Blood Type Antibody Screen 05/17/19 05/17/19 05/17/19 14:00 14:00 22:50 WBC RBC Hgb Hct MCV MCH MCHC RDW Plt Count MPV Absolute Neuts (auto) Neutrophils % Neutrophils % (Manual) Band Neutrophils % Lymphocytes % Lymphocytes % (Manual) Monocytes % Monocytes % (Manual) Eosinophils % Eosinophils % (Manual) Basophils % Basophils % (Manual) Myelocytes % (Man) Promyelocytes % (Man) Blast Cells % (Manual) Nucleated RBC % Metamyelocytes Hypochromia Platelet Estimate Polychromasia Poikilocytosis Anisocytosis Microcytosis Macrocytosis Ovalocytes PT with INR Cancelled INR Cancelled PTT (Actin FS) Sodium 132 L Potassium 4.9 Chloride 98 Carbon Dioxide 21 Anion Gap 13 BUN 30.0 H Creatinine 2.0 H Est GFR (CKD-EPI)AfAm 29.83 Est GFR (CKD-EPI)NonAf 25.73 Random Glucose 308 H Lactic Acid Calcium 8.7 Total Bilirubin 0.6 AST 19 ALT 11 L Alkaline Phosphatase 110 Creatine Kinase Troponin I Total Protein 7.5 Albumin 2.4 L Total Amylase Lipase 37 L Urine Color Urine Appearance Urine pH Ur Specific [place] Urine Protein Urine Glucose (UA) Urine Ketones Urine Blood Urine Nitrite Urine Bilirubin Urine Urobilinogen Ur Leukocyte Esterase Urine WBC (Auto) Urine RBC (Auto) Urine Casts (Auto) U Pathogenic Cast Auto U Epithel Cells (Auto) Urine Bacteria (Auto) Urine Yeast (Auto) Blood Type O NEGATIVE Antibody Screen Negative 05/17/19 05/17/19 05/18/19 23:00 23:32 09:40 WBC RBC Hgb Hct MCV MCH MCHC RDW Plt Count MPV Absolute Neuts (auto) Neutrophils % Neutrophils % (Manual) Band Neutrophils % Lymphocytes % Lymphocytes % (Manual) Monocytes % Monocytes % (Manual) Eosinophils % Eosinophils % (Manual) Basophils % Basophils % (Manual) Myelocytes % (Man) Promyelocytes % (Man) Blast Cells % (Manual) Nucleated RBC % Metamyelocytes Hypochromia Platelet Estimate Polychromasia Poikilocytosis Anisocytosis Microcytosis Macrocytosis Ovalocytes PT with INR INR PTT (Actin FS) Sodium Potassium Chloride Carbon Dioxide Anion Gap BUN Creatinine Est GFR (CKD-EPI)AfAm Est GFR (CKD-EPI)NonAf Random Glucose Lactic Acid 1.3 Calcium Total Bilirubin AST ALT Alkaline Phosphatase Creatine Kinase Troponin I Total Protein Albumin Total Amylase Lipase Urine Color Yellow Urine Appearance Turbid Urine pH 6.0 Ur Specific [place] 1.011 Urine Protein 2+ H Urine Glucose (UA) Negative Urine Ketones Negative Urine Blood 2+ H Urine Nitrite Negative Urine Bilirubin Negative Urine Urobilinogen 0.2 Ur Leukocyte Esterase 3+ H Urine WBC (Auto) 4204 Urine RBC (Auto) 107.6 Urine Casts (Auto) 124 U Pathogenic Cast Auto None seen U Epithel Cells (Auto) 23.9 Urine Bacteria (Auto) 4077.3 Urine Yeast (Auto) None seen Blood Type O NEGATIVE Antibody Screen 05/18/19 05/18/19 05/18/19 09:40 09:40 12:25 WBC 23.6 H 24.6 H RBC 2.71 L 2.69 L Hgb 8.7 L 8.5 L Hct 26.3 L 25.9 L MCV 96.8 H 96.3 H MCH 32.2 31.6 MCHC 33.3 32.8 RDW 13.4 13.6 Plt Count 361 358 MPV 8.7 8.1 Absolute Neuts (auto) 21.2 H Neutrophils % 89.4 H Neutrophils % (Manual) 79.4 Band Neutrophils % 2.0 Lymphocytes % 5.1 L Lymphocytes % (Manual) 12.7 D Monocytes % 4.9 Monocytes % (Manual) 6 Eosinophils % 0.1 D Eosinophils % (Manual) 0.0 Basophils % 0.5 Basophils % (Manual) 0.0 Myelocytes % (Man) 0 Promyelocytes % (Man) 0 Blast Cells % (Manual) 0 Nucleated RBC % 0 Metamyelocytes 0 Hypochromia 0 Platelet Estimate Normal Polychromasia 0 Poikilocytosis 0 Anisocytosis 1+ Microcytosis 0 Macrocytosis 1+ Ovalocytes 1+ PT with INR INR PTT (Actin FS) Sodium 137 Potassium 3.5 Chloride 103 Carbon Dioxide 21 Anion Gap 12 BUN 30.7 H Creatinine 1.6 H Est GFR (CKD-EPI)AfAm 39.06 Est GFR (CKD-EPI)NonAf 33.70 Random Glucose 327 H Lactic Acid Calcium 7.6 L Total Bilirubin AST ALT Alkaline Phosphatase Creatine Kinase Troponin I Total Protein Albumin Total Amylase 22 L Lipase 34 L Urine Color Urine Appearance Urine pH Ur Specific [place] Urine Protein Urine Glucose (UA) Urine Ketones Urine Blood Urine Nitrite Urine Bilirubin Urine Urobilinogen Ur Leukocyte Esterase Urine WBC (Auto) Urine RBC (Auto) Urine Casts (Auto) U Pathogenic Cast Auto U Epithel Cells (Auto) Urine Bacteria (Auto) Urine Yeast (Auto) Blood Type Antibody Screen Active Medications Generic Name Dose Route Start Last Admin Trade Name Freq PRN Reason Stop Dose Admin Acetaminophen 1,000 mg 05/18/19 11:55 05/18/19 12:48 Ofirmev Injection - IVPB 1,000 mg Q6H PRN Administration FEVER Sodium Chloride 1,000 mls @ 100 mls/hr 05/17/19 23:00 05/17/19 23:18 Normal Saline - IV 100 mls/hr ASDIR SHANIA Administration Piperacillin Sod/Tazobactam 50 mls @ 100 mls/hr 05/18/19 10:00 Sod 3.375 gm/ Dextrose IVPB Q8H-IV SHANIA Protocol Pantoprazole Sodium 40 mg 05/18/19 13:15 05/18/19 13:35 Protonix Iv IVPUSH 40 mg DAILY SHANIA Administration ASSESSMENT/PLAN: Pt is a 64 y/o F with a PMH of IDDM who initially presented to [facility] due to 3 days of dark stools as well as weakness and lightheadedness. #GI-GI Bleed unclear upper vs lower/Colitis H/H on admission 9.7/28.9. H/H this am---> 8.5/25/9. Will repeat this evening. -On Protonix 40 IVPUSH. Will switch to Protonix drip. -FOBT collected by appeals writer. Will send to lab. -Consider Testing for C Diff Toxin/Antigen -Dr Davis on board. Appreciate Recs. -c/w ABx for possible Collitis involving sigmoid region on CTAP. -Ofirmev PRN for Pain #ENDO IDDM -Continue ISS #FEN NS@100cc/hr Monitor Electrolytes NPO #PPX Protonix gtt Dispo: Pt currently hemodynamically stable. ICU monitoring not indicated at this juncture. Repeat CBC for this evening, if further drops, will re-evaluate. Thank you for this consultive opportunity. Visit type - Emergency Visit Emergency Visit: Yes ED Registration Date: 05/17/19 Care time: The patient presented to the Emergency Department on the above date and was hospitalized for further evaluation of their emergent condition. - New Patient This patient is new to me today: No - Critical Care Critical Care patient: No
[2019-05-18] MEDS: SODIUM CHLORIDE 1,000 ML IV SCH (14:39)
[2019-05-18] MEDS ORDERED: PT OWN MED DRAWER 7, Y5N ONE ×4 (15:59→18:05)
--- NOTE | 2019-05-18 16:46 | PN ---
Progress Note (short form) - Note Progress Note: ID consult dictated imp/reccd GI bleed UTI KEYSHA leukocytosis ?proctitis 64 yo female with DM, bilateral BKA admitted from home with multiple episodes of black stools at home for last 3 days she has been having fevers and difficuty emptying her bladder yesterday she had 4-5 episodes of nonbloody vomiting that has now resolved she has been taking advil for left thigh/hip/LLQ pain at home no recent antibiotics as outpt ct scan ?proctitis continue zosyn/flagyl for UTI/proctitis GI evaluation for GI bleed Problem List - Problems (1) GI bleed Code(s): K92.2 - GASTROINTESTINAL HEMORRHAGE, UNSPECIFIED (2) UTI (urinary tract infection) Code(s): N39.0 - URINARY TRACT INFECTION, SITE NOT SPECIFIED (3) KEYSHA (acute kidney injury) Code(s): N17.9 - ACUTE KIDNEY FAILURE, UNSPECIFIED (4) Proctitis Code(s): K62.89 - OTHER SPECIFIED DISEASES OF ANUS AND RECTUM
[2019-05-18] MEDS: INSULIN SLIDING SCALE (NOVOLOG) 1 VIAL SQ SCH ×2 (16:51→22:41)
[2019-05-18] MEDS ORDERED: PIPERACILLIN/TAZOBACTAM 3.375 GM VIAL IVPB ONE (17:32)
[2019-05-18] MEDS ORDERED: DEXTROSE 5%-WATER - 50 ML IVPB ONE (17:33)
[2019-05-18] MEDS: PIPERACILLIN/TAZOB 3.375 GM 3.375 GM in DEXTROSE 5%-WATER - 50 ML IVPB SCH (17:35)
[2019-05-18] MEDS ORDERED: PIPERACILLIN/TAZOB 3.375 GM 3.375 GM in DEXTROSE 5%-WATER - 50 ML IVPB SCH (18:00)
[2019-05-18 18:22] LABS: HEMATOCRIT 24.7 % (32.4-45.2); MCH 31.5 pg (25.7-33.7); MCHC 32.4 g/dl (32.0-36.0); MEAN CELL VOLUME 97.3 fl (80-96); MEAN PLT VOLUME 8.7 fl (7.5-11.1); PLATELET COUNT 343 K/MM3 (134-434); RBC 2.54 M/mm3 (3.60-5.2); RDW 13.7 % (11.6-15.6); WHITE BLOOD COUNT 24.4 K/mm3 (4.0-10.0)
[2019-05-18] MEDS: PANTOPRAZOLE SODIUM 80 MG in SODIUM CHLORIDE 100 ML IVPB SCH (19:28)
[2019-05-18] MEDS ORDERED: INSULIN (NOVOLOG) ASPART 100 UNITS/ML 10ML VIAL ONE (19:34)
--- NOTE | 2019-05-18 21:00 | CONS ---
GASTROINTESTINAL CONSULTATION DATE OF CONSULTATION: DATE OF DICTATION: 05/18/2019 HISTORY: Patient is a 64-year-old female past medical history of diabetes and an amputation in the past who is a poor historian, however, admits to diarrhea for the past 4-5 days also with associated nausea, vomiting, and fever. She states she did not see blood in her stool, but her stool was dark after she had multiple episodes of diarrhea. She denies recent antibiotic use, travel, culprit foods. She states her last colonoscopy was 5 years ago. There were a few polyps. This was done at [facility]. She has not had an upper endoscopy in the past. She does admit to taking Advil for her current symptoms. She denies syncope, dizziness, hematemesis, or weight loss. PAST MEDICAL HISTORY: As listed in the HPI. PAST SURGICAL HISTORY: As listed in the HPI. ALLERGIES: No known drug allergies. SOCIAL HISTORY: Does not drink, smoke, or use drugs. FAMILY HISTORY: No history of GI or gynecological malignancy. REVIEW OF SYSTEMS: As per the HPI. PHYSICAL EXAMINATION: Vital Signs: Temperature 100.6, pulse 90, blood pressure 95/49, respiratory rate 12, oxygen saturation 93% on room air. General: In no acute distress. HEENT: Anicteric sclerae. Cardiovascular: S1, S2. Regular rate and rhythm. Lungs: Bilaterally clear to auscultation. Abdomen: Soft, nontender. Extremities: No edema. Bilateral knee amputations with stumps. LABORATORIES: White blood cell count on admission was 30, currently it is 24.6, hemoglobin 8.5, hematocrit 25, MCV 96, platelet count 358, INR 1.4. Sodium 137, potassium 3.5, BUN 30, creatinine 1.6, glucose 327, total bilirubin 0.6, AST 19, ALT 11, alkaline phosphatase 110, amylase 22, lipase 34, leukocyte esterase 3+. Stool for occult blood is negative. She had a CT scan for the abdomen and pelvis, which revealed questionable distention of the urinary bladder, mild concentric rectal wall thickening, questionable proctitis, interval development of small amount of fluid in the right pararenal fascia. Extensive arthroscopic calcifications were also seen with cholelithiasis and a contracted gallbladder. IMPRESSION: Nausea, vomiting, and diarrhea most likely secondary to an underlying infectious etiology. She is currently with a low-grade temperatures also. She may have noted some dark stool secondary to her frequent bowel movements and a small complication of ischemic colitis secondary to her diarrheal illness. There is no sign of an overt GI bleed at this time. She is hemodynamically stable. RECOMMENDATION: Continue her on antibiotic. She is currently being treated with Zosyn. Would continue her Protonix and also order stool culture, ova and parasite, leukocyte, and C. difficile, and fecal fat. Advance her to a clear liquid diet. Trend hemoglobin and hematocrit every 12 while hospitalized. Would hold off on any invasive procedures at this time considering she is with an active infection. We will follow. DO MARQUIS MACK/[id number]
--- NOTE | 2019-05-18 21:09 | CONS ---
INFECTIOUS DISEASE CONSULTATION DATE OF CONSULTATION: DATE OF DICTATION: 05/18/2019 REQUESTING PHYSICIAN: Dr. Beltran HISTORY: This is a 64-year-old woman. She has a history of bilateral AKA. She lives at home with her family. She has a history of diabetes as well. She presents to the emergency room with 3-day history of black stools frequent multiple times during the day. She also had yesterday 5 episodes of vomiting. She also reports that she has had some fever at home. She reports she lately has been having trouble at the same time that this happened trouble voiding and has felt like she has not been able to empty her bladder. She has had a subjective sensation of feelings of fever as well. She has been taking Advil for pain that she describes as above her left thigh. She has not had any recent antibiotics as an outpatient. Her last admission was 1 year ago to [facility]. There is no history of any recent travel. She lives with her family who is well. PAST MEDICAL HISTORY: Notable for diabetes, hyperlipidemia. PAST SURGICAL HISTORY: She is status post bilateral BKAs done 15-20 years ago. SOCIAL HISTORY: No history of significant alcohol or substance use. She uses a wheelchair. She is followed by a physician at [facility]. FAMILY HISTORY: Notable for diabetes and CVA in her mother. Diabetes in both parents. ALLERGIES: She has no known drug allergies. MEDICATIONS: Not obtainable. REVIEW OF SYSTEMS: Her vomiting has stopped. She has no abdominal pain. She has had 2 black bowel movements today. A Garcia was placed in the ER, and she reports feeling better. PHYSICAL EXAMINATION: Vital Signs: Her maximum temperature is 100.6, which is her current temperature, pulse of 90, blood pressure 95/49, respiratory rate is 20. General: She is a large woman in no acute distress. HEENT: She is normocephalic. Her eyes are anicteric. Neck: Supple. She has no pharyngitis. Lungs: Clear to auscultation. Heart: Regular rate and rhythm. Abdomen: Soft, nontender. Extremities: Her bilateral BKA stumps are well healed. Skin: Her back, she has an area of depigmentation, and she is oozing dark, blood stool. LABORATORIES: Notable for a white count on admission of 30,000, today is 24.6, hemoglobin 8.5, platelets are 358. Her INR is 1.4, BUN 30 and creatinine 2 yesterday, today are BUN 30 and creatinine 1.6. LFTs are normal. Urinalysis has 2+ leukocytes with 4204 white cells. Blood cultures and urine cultures are pending. CAT scan reveals rectal wall thickening consistent with possible proctitis. She had a chest x-ray that shows no acute process. In summary, this is a 64-year-old woman with a GI bleed, UTI, acute kidney injury, and leukocytosis most likely on the basis of the UTI and GI bleed. CAT scan with question of proctitis. She was started on Zosyn in the emergency room. I would continue Zosyn and Flagyl for UTI, proctitis and await GI evaluation. Further recommendations to follow. ALMAZ FARMER M.D. [id number]
[2019-05-18] MEDS ORDERED: CHLORHEXIDINE GLUCONATE 4% CLEANSER FOR DECOLONIZATION TP SCH (22:00)
[2019-05-18] MEDS ORDERED: MUPIROCIN 2% TOPICAL OINTMENT FOR DECOLONIZATION NS SCH (22:00)
[2019-05-19] MEDS ORDERED: PIPERACILLIN/TAZOBACTAM 3.375 GM VIAL IVPB ONE ×3 (01:24→21:59)
[2019-05-19] MEDS ORDERED: DEXTROSE 5%-WATER - 50 ML IVPB ONE ×3 (01:25→21:59)
[2019-05-19] MEDS: SODIUM CHLORIDE 1,000 ML IV SCH (02:07)
[2019-05-19] MEDS: PIPERACILLIN/TAZOB 3.375 GM 3.375 GM in DEXTROSE 5%-WATER - 50 ML IVPB SCH ×3 (02:08→22:01)
[2019-05-19] MEDS ORDERED: PT OWN MED DRAWER 7, Y5N ONE ×2 (02:12→13:21)
[2019-05-19] MEDS: ACETAMINOPHEN 1000 MG/100 ML VIAL (NON FORMULARY) IVPB PRN (05:56)
[2019-05-19] MEDS: PANTOPRAZOLE SODIUM 80 MG in SODIUM CHLORIDE 100 ML IVPB SCH (05:57)
[2019-05-19] MEDS: INSULIN SLIDING SCALE (NOVOLOG) 1 VIAL SQ SCH ×4 (06:00→22:20)
[2019-05-19 08:14] LABS: INR 1.6 (0.83-1.09)
[2019-05-19 08:19] LABS: HEMATOCRIT 23.2 % (32.4-45.2); HEMOGLOBIN 7.8 GM/dL (10.7-15.3); MCHC 33.4 g/dl (32.0-36.0); MEAN CELL VOLUME 95.8 fl (80-96); MEAN PLT VOLUME 8.5 fl (7.5-11.1); PLATELET COUNT 336 K/MM3 (134-434); RBC 2.42 M/mm3 (3.60-5.2); RDW 13.8 % (11.6-15.6); WHITE BLOOD COUNT 20.4 K/mm3 (4.0-10.0)
[2019-05-19 08:42] LABS: ALBUMIN 1.7 g/dl (3.4-5.0); BILIRUBIN,TOTAL 0.6 mg/dL (0.2-1); CALCIUM 7.3 mg/dL (8.5-10.1); CREATININE 1.6 mg/dL (0.55-1.3); MAGNESIUM 1.2 mg/dL (1.8-2.4); PHOSPHOROUS 2.4 mg/dL (2.5-4.9); TOT PROT 5.8 g/dl (6.4-8.2)
[2019-05-19 08:47] LABS: POTASSIUM 2.8 mmol/L (3.5-5.1)
--- NOTE | 2019-05-19 09:58 | PN ---
Progress Note (short form) - Note Progress Note: Pt having blood stools- loose stools No abd pain Feels weak No nausea Vital Signs - 24 hr 05/18/19 05/18/19 05/18/19 13:55 15:00 16:30 Temperature 98.9 F 100.6 F H 98.3 F Pulse Rate 90 88 Respiratory 20 20 Rate Blood Pressure 95/49 L 104/46 L O2 Sat by Pulse Oximetry (%) 05/18/19 05/18/19 05/18/19 17:51 19:00 20:00 Temperature 99.3 F 98.7 F 98.4 F Pulse Rate 83 91 H 86 Respiratory 22 H 23 H 16 Rate Blood Pressure 108/57 L 116/65 104/55 L O2 Sat by Pulse Oximetry (%) 05/18/19 05/19/19 05/19/19 20:49 00:00 02:46 Temperature 98.2 F 101 F H Pulse Rate 84 96 H Respiratory 20 20 Rate Blood Pressure 122/66 125/75 O2 Sat by Pulse 100 Oximetry (%) 05/19/19 05/19/19 05/19/19 06:00 08:20 12:00 Temperature 101.4 F H 99 F 98.2 F Pulse Rate 90 82 76 Respiratory 20 20 20 Rate Blood Pressure 111/59 L 94/54 L 118/62 O2 Sat by Pulse Oximetry (%) Current Medications Generic Name Dose Route Start Last Admin Trade Name Freq PRN Reason Stop Dose Admin Acetaminophen 1,000 mg 05/18/19 11:55 05/19/19 05:56 Ofirmev Injection - IVPB 1,000 mg Q6H PRN Administration FEVER Chlorhexidine Gluconate 1 applic 05/18/19 22:00 Hibiclens For Decolonization - TP HS SHANIA Piperacillin Sod/Tazobactam 50 mls @ 100 mls/hr 05/18/19 17:15 05/19/19 09:22 Sod 3.375 gm/ Dextrose IVPB 100 mls/hr Q8H-IV SHANIA Administration Protocol Pantoprazole Sodium 80 mg/ 100 mls @ 10 mls/hr 05/18/19 15:00 05/19/19 05:57 Sodium Chloride IVPB 10 mls/hr Q10H SHANIA Administration 8 MG/HR Metronidazole 500 mg in 100 mls @ 100 mls/hr 05/18/19 18:00 05/19/19 10:29 Flagyl 500mg Premixed Ivpb - IVPB 100 mls/hr Q8H-IV SHANIA Administration Potassium Chloride 10 meq in 100 mls @ 100 mls/hr 05/19/19 10:45 05/19/19 11: 32 Potassium Chloride 10 Meq Premix Ivpb - IVPB 05/19/19 13:44 100 mls/hr Q60M SHANIA Administration Potassium Chloride/Sodium Chloride 20 meq in 1,000 mls @ 100 mls/hr 05/19/19 09:57 05/19/19 11:31 Ns+20 Meq Kcl - IV 100 mls/hr ASDIR SHANIA Administration Insulin Aspart 1 vial 05/18/19 16:30 05/19/19 11:50 Novolog Vial Sliding Scale - SQ 6 unit ACHS SHANIA Administration Protocol Mupirocin 1 applic 05/18/19 22:00 Bactroban Ointment (For Decolonization) - NS 05/23/19 21:59 BID SHANIA Laboratory Results - last 24 hr 05/18/19 05/18/19 05/18/19 09:40 12:25 16:43 WBC 24.6 H RBC 2.69 L Hgb 8.5 L Hct 25.9 L MCV 96.3 H MCH 31.6 MCHC 32.8 RDW 13.6 Plt Count 358 MPV 8.1 Neutrophils % (Manual) 79.4 Band Neutrophils % 2.0 Lymphocytes % (Manual) 12.7 D Monocytes % (Manual) 6 Eosinophils % (Manual) 0.0 Basophils % (Manual) 0.0 Myelocytes % (Man) 0 Promyelocytes % (Man) 0 Blast Cells % (Manual) 0 Metamyelocytes 0 Hypochromia 0 Platelet Estimate Normal Polychromasia 0 Poikilocytosis 0 Anisocytosis 1+ Microcytosis 0 Macrocytosis 1+ Ovalocytes 1+ PT with INR INR PTT (Actin FS) Sodium Potassium Chloride Carbon Dioxide Anion Gap BUN Creatinine Est GFR (CKD-EPI)AfAm Est GFR (CKD-EPI)NonAf POC Glucometer 277 Random Glucose Calcium Phosphorus Magnesium Total Bilirubin AST ALT Alkaline Phosphatase Creatine Kinase Troponin I Total Protein Albumin 05/18/19 05/18/19 05/19/19 17:30 22:02 05:59 WBC 24.4 H RBC 2.54 L Hgb 8.0 L Hct 24.7 L MCV 97.3 H MCH 31.5 MCHC 32.4 RDW 13.7 Plt Count 343 MPV 8.7 Neutrophils % (Manual) Band Neutrophils % Lymphocytes % (Manual) Monocytes % (Manual) Eosinophils % (Manual) Basophils % (Manual) Myelocytes % (Man) Promyelocytes % (Man) Blast Cells % (Manual) Metamyelocytes Hypochromia Platelet Estimate Polychromasia Poikilocytosis Anisocytosis Microcytosis Macrocytosis Ovalocytes PT with INR INR PTT (Actin FS) Sodium Potassium Chloride Carbon Dioxide Anion Gap BUN Creatinine Est GFR (CKD-EPI)AfAm Est GFR (CKD-EPI)NonAf POC Glucometer 347 325 Random Glucose Calcium Phosphorus Magnesium Total Bilirubin AST ALT Alkaline Phosphatase Creatine Kinase Troponin I Total Protein Albumin 05/19/19 05/19/19 05/19/19 07:40 07:40 07:40 WBC 20.4 H RBC 2.42 L Hgb 7.8 L Hct 23.2 L MCV 95.8 MCH 32.0 MCHC 33.4 RDW 13.8 Plt Count 336 MPV 8.5 Neutrophils % (Manual) Band Neutrophils % Lymphocytes % (Manual) Monocytes % (Manual) Eosinophils % (Manual) Basophils % (Manual) Myelocytes % (Man) Promyelocytes % (Man) Blast Cells % (Manual) Metamyelocytes Hypochromia Platelet Estimate Polychromasia Poikilocytosis Anisocytosis Microcytosis Macrocytosis Ovalocytes PT with INR 19.00 H INR 1.60 H PTT (Actin FS) 29.0 Sodium 138 Potassium 2.8 L* Chloride 107 Carbon Dioxide 22 Anion Gap 10 BUN 27.0 H Creatinine 1.6 H Est GFR (CKD-EPI)AfAm 39.06 Est GFR (CKD-EPI)NonAf 33.70 POC Glucometer Random Glucose 322 H Calcium 7.3 L Phosphorus 2.4 L Magnesium 1.2 L Total Bilirubin 0.6 AST 19 ALT 10 L Alkaline Phosphatase 97 Creatine Kinase 52 Troponin I 0.45 H Total Protein 5.8 L Albumin 1.7 L 05/19/19 11:46 WBC RBC Hgb Hct MCV MCH MCHC RDW Plt Count MPV Neutrophils % (Manual) Band Neutrophils % Lymphocytes % (Manual) Monocytes % (Manual) Eosinophils % (Manual) Basophils % (Manual) Myelocytes % (Man) Promyelocytes % (Man) Blast Cells % (Manual) Metamyelocytes Hypochromia Platelet Estimate Polychromasia Poikilocytosis Anisocytosis Microcytosis Macrocytosis Ovalocytes PT with INR INR PTT (Actin FS) Sodium Potassium Chloride Carbon Dioxide Anion Gap BUN Creatinine Est GFR (CKD-EPI)AfAm Est GFR (CKD-EPI)NonAf POC Glucometer 290 Random Glucose Calcium Phosphorus Magnesium Total Bilirubin AST ALT Alkaline Phosphatase Creatine Kinase Troponin I Total Protein Albumin S1 S2 RRR Lungs clear Abd- soft, obese, NT No edema B/L BKA PLAN transfuse PRBC iv antibiotics on protonix drip NPO replace lytes Problem List - Problems (1) Blood per rectum Code(s): K62.5 - HEMORRHAGE OF ANUS AND RECTUM (2) Colitis Code(s): K52.9 - NONINFECTIVE GASTROENTERITIS AND COLITIS, UNSPECIFIED (3) Diabetes mellitus Code(s): E11.9 - TYPE 2 DIABETES MELLITUS WITHOUT COMPLICATIONS
[2019-05-19] MEDS: SODIUM CHLORIDE 0.9%/KCL 20 MEQ/1,000 ML INFUS.BAG IV SCH ×2 (10:50→11:31)
[2019-05-19] MEDS: KCL 10 MEQ IVPB 10 MEQ/100 ML INFUS.BAG IVPB SCH ×3 (11:32→13:51)
[2019-05-19] MEDS ORDERED: MAGNESIUM SULF 50% (8.12 MEQ/2 ML-1 GM VIAL) IVPB ONE (12:45)
[2019-05-19] MEDS ORDERED: POTASSIUM PHOSPHATE 20 MM in SODIUM CHLORIDE 250 ML IVPB ONE (13:30)
[2019-05-19 13:53] LABS: BLOOD UREA NITROGEN 26.6 mg/dL (7-18); CALCIUM 7.5 mg/dL (8.5-10.1); CREATININE 1.8 mg/dL (0.55-1.3); POTASSIUM 3.4 mmol/L (3.5-5.1)
[2019-05-19] MEDS ORDERED: PANTOPRAZOLE SODIUM 160 MG in SODIUM CHLORIDE 290 ML IVPB SCH (14:45)
--- NOTE | 2019-05-19 14:53 | PN ---
Progress Note (short form) - Note Progress Note: no abdominal pain one BM- still black fever overnight feels better Vital Signs Period Temp Pulse Resp BP Sys/Boykin Pulse Ox Last 24 Hr 98.2 F-101.4 F 76-96 16-23 94-125/46-75 100 cor-rrr lungs clear abd soft,nt +pizarro bilateral BKA CBC, BMP 05/19/19 07:40 05/19/19 13:00 Microbiology 05/17/19 23:00 Urine - Urine - Catheterized Urine Culture - Preliminary Lactose Fermenting Neg Bacilli 05/17/19 23:20 Blood - Peripheral Venous Blood Culture - Preliminary NO GROWTH OBTAINED AFTER 24 HOURS, INCUBATION TO CONTINUE FOR 4 DAYS. 05/17/19 23:32 Blood - Peripheral Venous Blood Culture - Preliminary NO GROWTH OBTAINED AFTER 24 HOURS, INCUBATION TO CONTINUE FOR 4 DAYS. Current Medications Acetaminophen (Ofirmev Injection -) 1,000 mg IVPB Q6H PRN PRN Reason: FEVER Last Admin: 05/19/19 05:56 Dose: 1,000 mg Chlorhexidine Gluconate (Hibiclens For Decolonization -) 1 applic TP HS SHANIA Piperacillin Sod/Tazobactam (Sod 3.375 gm/ Dextrose) 50 mls @ 100 mls/hr IVPB Q8H-IV SHANIA; Protocol Last Admin: 05/19/19 09:22 Dose: 100 mls/hr Metronidazole (Flagyl 500mg Premixed Ivpb -) 500 mg in 100 mls @ 100 mls/hr IVPB Q8H-IV SHANIA Last Admin: 05/19/19 10:29 Dose: 100 mls/hr Potassium Chloride/Sodium Chloride (Ns+20 Meq Kcl -) 20 meq in 1,000 mls @ 100 mls/hr IV ASDIR SHANIA Last Admin: 05/19/19 11:31 Dose: 100 mls/hr Potassium Phosphate 20 mm/ (Sodium Chloride) 256.6667 mls @ 42.778 mls/hr IVPB ONCE ONE Stop: 05/19/19 19:29 Pantoprazole Sodium 160 mg/ (Sodium Chloride) 290 mls @ 14.5 mls/hr IVPB Q20H SHANIA Insulin Aspart (Novolog Vial Sliding Scale -) 1 vial SQ ACHS SHANIA; Protocol Last Admin: 05/19/19 11:50 Dose: 6 unit Mupirocin (Bactroban Ointment (For Decolonization) -) 1 applic NS BID SHANIA Stop: 05/23/19 21:59 imp/reccd anemia GI bleed UTI KEYSHA leukocytosis ?proctitis continue zosyn/flagyl f/u cultures Problem List - Problems (1) GI bleed Code(s): K92.2 - GASTROINTESTINAL HEMORRHAGE, UNSPECIFIED (2) UTI (urinary tract infection) Code(s): N39.0 - URINARY TRACT INFECTION, SITE NOT SPECIFIED (3) KEYSHA (acute kidney injury) Code(s): N17.9 - ACUTE KIDNEY FAILURE, UNSPECIFIED (4) Proctitis Code(s): K62.89 - OTHER SPECIFIED DISEASES OF ANUS AND RECTUM
--- NOTE | 2019-05-19 16:31 | PN.GI ---
GI Progress Note Subjective: Pt seen/examined. Feeling better, denies abdominal pain, n/v. Had one soft greenish/brown bm today, no blood (seen in diaper). Tolerating clear liquid diet. - Objective Vital Signs: Vital Signs Temperature 98.7 F 05/19/19 14:00 Pulse Rate 82 05/19/19 14:00 Respiratory Rate 20 05/19/19 14:00 Blood Pressure 103/55 L 05/19/19 14:00 O2 Sat by Pulse Oximetry (%) 100 05/18/19 20:49 Constitutional: Well Nourished, No Distress, Calm Cardiovascular: Yes: WNL, Regular Rate and Rhythm Respiratory: Yes: WNL, Regular, CTA Bilaterally ...Palpate: Yes: Other (Abd soft, nt, nd) ...Rectal Exam: Yes: Other (loose greenish brown stool, no blood) Labs: CBC, BMP 05/19/19 07:40 05/19/19 13:00 INR, PTT INR 1.60 (0.83-1.09) H 05/19/19 07:40 Problem List - Problems (1) Diarrhea Assessment/Plan: 64yo female h/o DM presenting with abdominal pain and loose dark bms with CT revealing thickening at rectum. Brown stool on examination. No overt bleeding. Suspect infectious etiology in setting of fever and leucocytosis, less likely ischemic though cannot exclude. Does not appear as UGI bleed. Clinically improving. Colonoscopy per pt 4-5 years ago (report not currently available). -Follow up stool studies (c difficile, ova/parasites, cultures) -Follow up results of blood and urine cultures -Closely monitor and replete electrolytes -Antibiotics per ID -Change to PPI daily -Pending course and results of stool studies/infectious workup may consider endoscopic evaluation if symptoms do not continue to improve Code(s): R19.7 - DIARRHEA, UNSPECIFIED
[2019-05-20] MEDS ORDERED: POTASSIUM PHOSPHATE 20 MM in SODIUM CHLORIDE 250 ML IVPB ONE (01:00)
[2019-05-20] MEDS ORDERED: PIPERACILLIN/TAZOBACTAM 3.375 GM VIAL IVPB ONE ×3 (04:24→17:21)
[2019-05-20] MEDS ORDERED: DEXTROSE 5%-WATER - 50 ML IVPB ONE ×3 (04:25→17:22)
[2019-05-20] MEDS: PIPERACILLIN/TAZOB 3.375 GM 3.375 GM in DEXTROSE 5%-WATER - 50 ML IVPB SCH ×2 (04:26→09:22)
[2019-05-20] MEDS: INSULIN SLIDING SCALE (NOVOLOG) 1 VIAL SQ SCH ×4 (06:35→23:10)
[2019-05-20 07:42] LABS: HEMATOCRIT 26.2 % (32.4-45.2); HEMOGLOBIN 9.1 GM/dL (10.7-15.3); MCH 32.3 pg (25.7-33.7); MCHC 34.6 g/dl (32.0-36.0); MEAN CELL VOLUME 93.3 fl (80-96); MEAN PLT VOLUME 8.4 fl (7.5-11.1); PLATELET COUNT 376 K/MM3 (134-434); RBC 2.81 M/mm3 (3.60-5.2); RDW 14.4 % (11.6-15.6); WHITE BLOOD COUNT 18.6 K/mm3 (4.0-10.0)
[2019-05-20 08:16] LABS: ALBUMIN 1.8 g/dl (3.4-5.0); BILIRUBIN,TOTAL 0.6 mg/dL (0.2-1); BLOOD UREA NITROGEN 20.7 mg/dL (7-18); CALCIUM 7.4 mg/dL (8.5-10.1); CREATININE 1.2 mg/dL (0.55-1.3); MAGNESIUM 1.5 mg/dL (1.8-2.4); PHOSPHOROUS 2.5 mg/dL (2.5-4.9); POTASSIUM 3.4 mmol/L (3.5-5.1)
[2019-05-20] MEDS: PANTOPRAZOLE SODIUM 40 MG VIAL IVPUSH SCH (09:30)
[2019-05-20] MEDS: SODIUM CHLORIDE 0.9%/KCL 20 MEQ/1,000 ML INFUS.BAG IV SCH ×3 (10:00→23:12)
[2019-05-20] MEDS: PANTOPRAZOLE SODIUM 80 MG in SODIUM CHLORIDE 100 ML IVPB SCH (11:00)
[2019-05-20] MEDS ORDERED: POTASSIUM CHLORIDE ORAL LIQUID 20 MEQ/15 ML PO ONE (11:45)
--- NOTE | 2019-05-20 13:19 | PN ---
Progress Note (short form) - Note Progress Note: no dark colored stools No abd pain s/p PRBC feels well Vital Signs - 24 hr 05/19/19 05/19/19 05/19/19 14:00 16:15 17:40 Temperature 98.7 F 98.4 F 99 F Pulse Rate 82 81 81 Respiratory 20 20 18 Rate Blood Pressure 103/55 L 115/69 108/63 O2 Sat by Pulse Oximetry (%) 05/19/19 05/19/19 05/20/19 21:00 22:00 01:52 Temperature 99.9 F H 100.1 F H Pulse Rate 96 H 85 Respiratory 18 20 Rate Blood Pressure 113/67 120/69 O2 Sat by Pulse 97 Oximetry (%) 05/20/19 05/20/19 05/20/19 02:59 06:00 09:58 Temperature 99.5 F 99 F 98.7 F Pulse Rate 84 80 Respiratory 20 20 Rate Blood Pressure 121/76 125/70 O2 Sat by Pulse Oximetry (%) Current Medications Generic Name Dose Route Start Last Admin Trade Name Freq PRN Reason Stop Dose Admin Acetaminophen 1,000 mg 05/18/19 11:55 05/19/19 05:56 Ofirmev Injection - IVPB 1,000 mg Q6H PRN Administration FEVER Piperacillin Sod/Tazobactam 50 mls @ 100 mls/hr 05/18/19 17:15 05/20/19 09:22 Sod 3.375 gm/ Dextrose IVPB 100 mls/hr Q8H-IV SHANIA Administration Protocol Metronidazole 500 mg in 100 mls @ 100 mls/hr 05/18/19 18:00 05/20/19 10:21 Flagyl 500mg Premixed Ivpb - IVPB 100 mls/hr Q8H-IV SHANIA Administration Potassium Chloride/Sodium Chloride 20 meq in 1,000 mls @ 100 mls/hr 05/19/19 09:57 05/20/19 10:58 Ns+20 Meq Kcl - IV 100 mls/hr ASDIR SHANIA Administration Insulin Aspart 1 vial 05/18/19 16:30 05/20/19 11:03 Novolog Vial Sliding Scale - SQ 6 unit ACHS SHANIA Administration Protocol Magnesium Sulfate 2 gm 05/20/19 13:18 Magnesium Sulfate IVPB 05/20/19 13:19 ONCE ONE Pantoprazole Sodium 40 mg 05/20/19 10:00 05/20/19 09:30 Protonix Iv IVPUSH 40 mg DAILY SHANIA Administration Laboratory Results - last 24 hr 05/17/19 05/19/19 05/19/19 22:50 13:00 16:53 WBC RBC Hgb Hct MCV MCH MCHC RDW Plt Count MPV Sodium 138 Potassium 3.4 L Chloride 107 Carbon Dioxide 24 Anion Gap 7 L BUN 26.6 H Creatinine 1.8 H Est GFR (CKD-EPI)AfAm 33.88 Est GFR (CKD-EPI)NonAf 29.23 POC Glucometer 266 Random Glucose 305 H Calcium 7.5 L Phosphorus Magnesium Total Bilirubin AST ALT Alkaline Phosphatase Total Protein Albumin Blood Type O NEGATIVE Antibody Screen Negative Crossmatch See Detail 05/19/19 05/20/19 05/20/19 22:17 05:59 07:10 WBC 18.6 H RBC 2.81 L Hgb 9.1 L Hct 26.2 L MCV 93.3 MCH 32.3 MCHC 34.6 RDW 14.4 Plt Count 376 MPV 8.4 Sodium Potassium Chloride Carbon Dioxide Anion Gap BUN Creatinine Est GFR (CKD-EPI)AfAm Est GFR (CKD-EPI)NonAf POC Glucometer 232 194 Random Glucose Calcium Phosphorus Magnesium Total Bilirubin AST ALT Alkaline Phosphatase Total Protein Albumin Blood Type Antibody Screen Crossmatch 05/20/19 05/20/19 07:10 11:02 WBC RBC Hgb Hct MCV MCH MCHC RDW Plt Count MPV Sodium 139 Potassium 3.4 L Chloride 109 H Carbon Dioxide 22 Anion Gap 8 BUN 20.7 H Creatinine 1.2 Est GFR (CKD-EPI)AfAm 55.31 Est GFR (CKD-EPI)NonAf 47.72 POC Glucometer 273 Random Glucose 207 H Calcium 7.4 L Phosphorus 2.5 Magnesium 1.5 L Total Bilirubin 0.6 AST 16 ALT 11 L Alkaline Phosphatase 107 Total Protein 6.0 L Albumin 1.8 L Blood Type Antibody Screen Crossmatch S1 S2 RRR Lungs clear Abd- soft, obese, NT No edema B/L BKA PLAN s/p PRBC iv antibiotics on protonix daily clears replace lytes Problem List - Problems (1) Blood per rectum Code(s): K62.5 - HEMORRHAGE OF ANUS AND RECTUM (2) Colitis Code(s): K52.9 - NONINFECTIVE GASTROENTERITIS AND COLITIS, UNSPECIFIED (3) Diabetes mellitus Code(s): E11.9 - TYPE 2 DIABETES MELLITUS WITHOUT COMPLICATIONS
[2019-05-20] MEDS ORDERED: MAGNESIUM SULF 50% (8.12 MEQ/2 ML-1 GM VIAL) IVPB ONE (13:45)
--- NOTE | 2019-05-20 16:14 | PN.GI ---
GI Progress Note Subjective: No abdominal pain No diarrhea today / BM C. Diff not performed as of yet - Objective Vital Signs: Vital Signs Temperature 99.4 F 05/20/19 13:58 Pulse Rate 83 05/20/19 13:58 Respiratory Rate 20 05/20/19 13:58 Blood Pressure 133/68 05/20/19 13:58 O2 Sat by Pulse Oximetry (%) 97 05/19/19 21:00 Constitutional: Calm Eyes: No: Sclera Icterus Cardiovascular: Yes: Regular Rate and Rhythm, Murmur Respiratory: Yes: CTA Bilaterally Gastrointestinal Inspection: No: Distention ...Auscultate: Yes: Normoactive Bowel Sounds ...Palpate: Yes: Soft. No: Hepatomegaly, Splenomegaly, Tenderness ...Percussion: No: Tympanitic Extremities: Yes: Other (B/L BKA's) Neurological: Yes: Alert Labs: CBC, BMP 05/20/19 07:10 05/20/19 07:10 INR, PTT INR 1.60 (0.83-1.09) H 05/19/19 07:40 Problem List - Problems (1) Diarrhea Assessment/Plan: No diarrhea or Dark BM's reported today Stool C. Diff cancelled. ? if formed specimen given. Reordered if diarrhea persists Leukocytosis improving with treatment of UTI. Will need work-up of worsened anemia (likelu multifactorial including sepsis, ? bleed) and dark bowel movements when acute issues are resolved. Would likely start with upper endoscopy. Continue clears for now. Stool culture pending Abx per ID On IV protonix 40mg once daily. If C. Diff +, would stop this. Monitor H/H Code(s): R19.7 - DIARRHEA, UNSPECIFIED
[2019-05-20] MEDS ORDERED: PT OWN MED DRAWER 7, Y5N ONE (16:53)
--- NOTE | 2019-05-20 17:26 | PN ---
Progress Note (short form) - Note Progress Note: feels improved Vital Signs Period Temp Pulse Resp BP Sys/Boykin Pulse Ox Last 24 Hr 98.7 F-100.1 F 80-96 18-20 108-133/63-76 97 cor-rrr lungs clear abd soft,nt ext bilateral BKA CBC, BMP 05/20/19 07:10 05/20/19 07:10 Microbiology 05/17/19 23:00 Urine - Urine - Catheterized Urine Culture - Final Klebsiella Pneumoniae 05/17/19 23:20 Blood - Peripheral Venous Blood Culture - Preliminary NO GROWTH OBTAINED AFTER 48 HOURS, INCUBATION TO CONTINUE FOR 3 DAYS. 05/17/19 23:32 Blood - Peripheral Venous Blood Culture - Preliminary NO GROWTH OBTAINED AFTER 48 HOURS, INCUBATION TO CONTINUE FOR 3 DAYS. imp/reccd anemia GI bleed UTI-klebsiella KEYSHA leukocytosis-improving d/c zosyn/flagyl switch to ceftriaxone for UTI Problem List - Problems (1) GI bleed Code(s): K92.2 - GASTROINTESTINAL HEMORRHAGE, UNSPECIFIED (2) UTI (urinary tract infection) Code(s): N39.0 - URINARY TRACT INFECTION, SITE NOT SPECIFIED (3) KEYSHA (acute kidney injury) Code(s): N17.9 - ACUTE KIDNEY FAILURE, UNSPECIFIED (4) Proctitis Code(s): K62.89 - OTHER SPECIFIED DISEASES OF ANUS AND RECTUM
[2019-05-21 06:45] LABS: HEMATOCRIT 26.6 % (32.4-45.2); HEMOGLOBIN 9.1 GM/dL (10.7-15.3); MCHC 34.1 g/dl (32.0-36.0); MEAN CELL VOLUME 93.8 fl (80-96); MEAN PLT VOLUME 8.4 fl (7.5-11.1); PLATELET COUNT 379 K/MM3 (134-434); RBC 2.84 M/mm3 (3.60-5.2); RDW 14.8 % (11.6-15.6); WHITE BLOOD COUNT 14.6 K/mm3 (4.0-10.0)
[2019-05-21] MEDS: INSULIN SLIDING SCALE (NOVOLOG) 1 VIAL SQ SCH ×4 (07:25→23:01)
[2019-05-21 07:33] LABS: ALBUMIN 1.7 g/dl (3.4-5.0); BILIRUBIN,TOTAL 0.4 mg/dL (0.2-1); CALCIUM 7.3 mg/dL (8.5-10.1); CREATININE 0.9 mg/dL (0.55-1.3); MAGNESIUM 1.7 mg/dL (1.8-2.4); POTASSIUM 3.8 mmol/L (3.5-5.1); TOT PROT 6.1 g/dl (6.4-8.2)
[2019-05-21] MEDS: PANTOPRAZOLE SODIUM 40 MG VIAL IVPUSH SCH (09:19)
[2019-05-21] MEDS: SODIUM CHLORIDE 0.9%/KCL 20 MEQ/1,000 ML INFUS.BAG IV SCH ×2 (09:20→23:02)
[2019-05-21] MEDS ORDERED: PT OWN MED DRAWER 7, Y5N ONE (09:37)
--- NOTE | 2019-05-21 09:49 | PN ---
Progress Note (short form) - Note Progress Note: pt seen/ examined chart reviewed feels better denies abd pain/ diarrhea Vital Signs Temp 0.6 F L 05/21/19 05:00 Pulse 80 05/21/19 05:00 Resp 20 05/21/19 05:00 BP 107/62 05/21/19 05:00 Pulse Ox 98 05/20/19 09:00 Intake & Output 05/20/19 05/20/19 05/21/19 11:59 23:59 11:59 Intake Total 850 400 Output Total 600 900 600 Balance 250 -500 -600 Intake: IV 600 400 NS+20 MEQ KCL - 20 meq In 600 400 1,000 ml @ 100 mls/hr IV ASDIR SHANIA Rx#: [id number] IVPB 250 Output: Urine 600 900 600 Pizarro 600 900 600 Other: Voiding Method Indwelling Catheter Indwelling Catheter Bowel Movement Yes Yes # Bowel Movements 1 1 Active Medications Acetaminophen (Ofirmev Injection -) 1,000 mg IVPB Q6H PRN PRN Reason: FEVER Last Admin: 05/19/19 05:56 Dose: 1,000 mg Potassium Chloride/Sodium Chloride (Ns+20 Meq Kcl -) 20 meq in 1,000 mls @ 100 mls/hr IV ASDIR SHANIA Last Admin: 05/21/19 09:20 Dose: 100 mls/hr Insulin Aspart (Novolog Vial Sliding Scale -) 1 vial SQ ACHS [facility]; Protocol Last Admin: 05/21/19 07:25 Dose: 2 unit Pantoprazole Sodium (Protonix Iv) 40 mg IVPUSH DAILY SHANIA Last Admin: 05/21/19 09:19 Dose: 40 mg CBC, BMP 05/21/19 05:30 05/21/19 05:30 Abnormal Lab Results 05/21/19 05/21/19 05:30 05:30 WBC 14.6 H RBC 2.84 L Hgb 9.1 L Hct 26.6 L Random Glucose 219 H Calcium 7.3 L Magnesium 1.7 L AST 10 L ALT 9 L Total Protein 6.1 L Albumin 1.7 L Microbiology 05/17/19 23:20 Blood Culture - Preliminary Blood - Peripheral Venous NO GROWTH OBTAINED AFTER 72 HOURS, INCUBATION TO CONTINUE FOR 2 DAYS. 05/17/19 23:32 Blood Culture - Preliminary Blood - Peripheral Venous NO GROWTH OBTAINED AFTER 72 HOURS, INCUBATION TO CONTINUE FOR 2 DAYS. 05/17/19 23:00 Urine Culture - Final Urine - Urine - Catheterized Klebsiella Pneumoniae Physical Exam Awake/ comfortable. S1 S2 RRR Lungs clear Abd- soft, obese, NT No edema B/L BKA alert/ awake PLAN s/p PRBC iv antibiotics on protonix daily Rocephin mag supplement add basal insulin-- bgm reviewed d/c pizarro monitor labs oob- chair Will follow d/w RN also Will follow Problem List - Problems (1) KEYSHA (acute kidney injury) Code(s): N17.9 - ACUTE KIDNEY FAILURE, UNSPECIFIED (2) Colitis Code(s): K52.9 - NONINFECTIVE GASTROENTERITIS AND COLITIS, UNSPECIFIED (3) Diabetes mellitus Code(s): E11.9 - TYPE 2 DIABETES MELLITUS WITHOUT COMPLICATIONS (4) UTI (urinary tract infection) Code(s): N39.0 - URINARY TRACT INFECTION, SITE NOT SPECIFIED
[2019-05-21] MEDS ORDERED: MAGNESIUM SULF 50% (8.12 MEQ/2 ML-1 GM VIAL) IVPB ONE (10:00)
--- NOTE | 2019-05-21 10:18 | PN ---
Progress Note (short form) - Note Progress Note: no complaints Vital Signs Period Temp Pulse Resp BP Sys/Boykin Pulse Ox Last 24 Hr 0.6 F-99.5 F 80-84 20-20 107-134/58-70 cor-rrr lungs decreased bs at bases abd soft,nt bilateral BKA pizarro CBC, BMP 05/21/19 05:30 05/21/19 05:30 Microbiology 05/19/19 07:30 Stool Salmonella/Shigella Culture - Preliminary NO ENTERIC PATHOGENS, 24 HOURS, ON PRIMARY PLATES 05/19/19 07:30 Stool Yersinia Culture - Preliminary NO ENTERIC PATHOGENS, 24 HOURS, ON PRIMARY PLATES 05/19/19 07:30 Stool Vibrio Culture - Final NO GROWTH OF VIBRIO SPECIES OBTAINED 05/19/19 07:30 Stool Escherichia coli 0157 Culture - Final NO GROWTH OF E COLI 0157 OBTAINED 05/17/19 23:20 Blood - Peripheral Venous Blood Culture - Preliminary NO GROWTH OBTAINED AFTER 72 HOURS, INCUBATION TO CONTINUE FOR 2 DAYS. 05/17/19 23:32 Blood - Peripheral Venous Blood Culture - Preliminary NO GROWTH OBTAINED AFTER 72 HOURS, INCUBATION TO CONTINUE FOR 2 DAYS. 05/17/19 23:00 Urine - Urine - Catheterized Urine Culture - Final Klebsiella Pneumoniae Current Medications Acetaminophen (Ofirmev Injection -) 1,000 mg IVPB Q6H PRN PRN Reason: FEVER Last Admin: 05/19/19 05:56 Dose: 1,000 mg Potassium Chloride/Sodium Chloride (Ns+20 Meq Kcl -) 20 meq in 1,000 mls @ 100 mls/hr IV ASDIR SHANIA Last Admin: 05/21/19 09:20 Dose: 100 mls/hr Ceftriaxone Sodium 1 gm/ (Dextrose) 50 mls @ 100 mls/hr IVPB DAILY COUNTS INCLUDE 234 BEDS AT THE [facility]; Protocol Last Admin: 05/21/19 10:44 Dose: 100 mls/hr Insulin Aspart (Novolog Vial Sliding Scale -) 1 vial SQ ACHS COUNTS INCLUDE 234 BEDS AT THE [facility]; Protocol Last Admin: 05/21/19 07:25 Dose: 2 unit Insulin Detemir (Levemir Vial) 5 units SQ HS SHANIA Pantoprazole Sodium (Protonix Iv) 40 mg IVPUSH DAILY SHANIA Last Admin: 05/21/19 09:19 Dose: 40 mg imp/reccd anemia GI bleed [id number] ceftriaxone day #4 KEYSHA leukocytosis-improving Problem List - Problems (1) GI bleed Code(s): K92.2 - GASTROINTESTINAL HEMORRHAGE, UNSPECIFIED (2) UTI (urinary tract infection) Code(s): N39.0 - URINARY TRACT INFECTION, SITE NOT SPECIFIED (3) KEYSHA (acute kidney injury) Code(s): N17.9 - ACUTE KIDNEY FAILURE, UNSPECIFIED (4) Proctitis Code(s): K62.89 - OTHER SPECIFIED DISEASES OF ANUS AND RECTUM
[2019-05-21] MEDS ORDERED: cefTRIAXone SODIUM 1 GM VIAL ONE (10:42)
[2019-05-21] MEDS ORDERED: DEXTROSE 5%-WATER - 50 ML IVPB ONE (10:43)
[2019-05-21] MEDS: CEFTRIAXONE 1 GM in DEXTROSE 5%-WATER - 50 ML IVPB SCH (10:44)
--- NOTE | 2019-05-21 13:35 | PN.GI ---
GI Progress Note Subjective: No diarrhea No melena - Objective Vital Signs: Vital Signs Temperature 98.9 F 05/21/19 09:00 Pulse Rate 82 05/21/19 09:00 Respiratory Rate 05/21/19 09:00 Blood Pressure 133/68 05/21/19 09:00 O2 Sat by Pulse Oximetry (%) 98 05/20/19 09:00 Constitutional: Calm Eyes: No: Sclera Icterus Cardiovascular: Yes: Regular Rate and Rhythm Respiratory: Yes: CTA Bilaterally Gastrointestinal Inspection: No: Distention ...Auscultate: Yes: Normoactive Bowel Sounds ...Palpate: Yes: Soft. No: Hepatomegaly, Splenomegaly, Tenderness Extremities: Yes: Other (B/L BKA) Labs: CBC, BMP 05/21/19 05:30 05/21/19 05:30 INR, PTT INR 1.60 (0.83-1.09) H 05/19/19 07:40 Problem List - Problems (1) Diarrhea Assessment/Plan: No overt diarrhea / melena noted Stool studies negative to date No diarrhea to colect C. Diff For EGD friday given h/o melena at home. Discussed potential risks of the procedure like but not limited to bleeding, perforation requiring surgery to repair, infection, sedation medication effects. She has agreed to the procedure. NPO after midnight friday. Code(s): R19.7 - DIARRHEA, UNSPECIFIED
[2019-05-21] MEDS: INSULIN (LEVEMIR) 100 UNITS/ML UNITS SQ SCH (23:01)
[2019-05-22 06:48] LABS: BASO % 0.6 % (0-2.0); EOS % 2.2 % (0-4.5); HEMATOCRIT 25.8 % (32.4-45.2); HEMOGLOBIN 8.8 GM/dL (10.7-15.3); LYMPH % 22.9 % (8-40); MCHC 34.2 g/dl (32.0-36.0); MEAN CELL VOLUME 93.5 fl (80-96); MEAN PLT VOLUME 8.4 fl (7.5-11.1); MONO % 8.6 % (3.8-10.2); NEUT % 65.7 % (42.8-82.8); PLATELET COUNT 355 K/MM3 (134-434); RBC 2.76 M/mm3 (3.60-5.2); RDW 14.8 % (11.6-15.6)
[2019-05-22 07:03] LABS: ALBUMIN 1.6 g/dl (3.4-5.0); BILIRUBIN,TOTAL 0.3 mg/dL (0.2-1); BLOOD UREA NITROGEN 10.2 mg/dL (7-18); CALCIUM 7.2 mg/dL (8.5-10.1); CREATININE 0.9 mg/dL (0.55-1.3); POTASSIUM 3.6 mmol/L (3.5-5.1); TOT PROT 5.5 g/dl (6.4-8.2)
[2019-05-22] MEDS: INSULIN SLIDING SCALE (NOVOLOG) 1 VIAL SQ SCH ×4 (07:06→22:10)
[2019-05-22] MEDS ORDERED: cefTRIAXone SODIUM 1 GM VIAL ONE (08:59)
[2019-05-22] MEDS ORDERED: DEXTROSE 5%-WATER - 50 ML IVPB ONE (08:59)
[2019-05-22] MEDS: SODIUM CHLORIDE 0.9%/KCL 20 MEQ/1,000 ML INFUS.BAG IV SCH ×2 (09:03→17:52)
[2019-05-22] MEDS: PANTOPRAZOLE 40 MG TABLET (FP) PO SCH (09:04)
[2019-05-22] MEDS: CEFTRIAXONE 1 GM in DEXTROSE 5%-WATER - 50 ML IVPB SCH (09:04)
[2019-05-22] MEDS ORDERED: PT OWN MED DRAWER 7, Y5N ONE (19:25)
[2019-05-22] MEDS: INSULIN (LEVEMIR) 100 UNITS/ML UNITS SQ SCH (22:10)
[2019-05-23] MEDS: INSULIN SLIDING SCALE (NOVOLOG) 1 VIAL SQ SCH ×4 (06:18→21:40)
[2019-05-23] MEDS ORDERED: DEXTROSE 5%-WATER - 50 ML IVPB ONE (09:21)
[2019-05-23] MEDS ORDERED: cefTRIAXone SODIUM 1 GM VIAL ONE (09:21)
[2019-05-23] MEDS: CEFTRIAXONE 1 GM in DEXTROSE 5%-WATER - 50 ML IVPB SCH (09:47)
[2019-05-23] MEDS: PANTOPRAZOLE 40 MG TABLET (FP) PO SCH (09:47)
--- NOTE | 2019-05-23 11:42 | PN ---
Progress Note (short form) - Note Progress Note: pt seen/ examined chart reviewed feels better denies abd pain/ diarrhea comfortable Vital Signs Temp 98.7 F 05/23/19 06:00 Pulse 75 05/23/19 06:00 Resp 20 05/23/19 06:00 BP 130/73 05/23/19 06:00 Pulse Ox 98 05/22/19 21:00 Intake & Output 05/22/19 05/22/19 05/23/19 11:59 23:59 11:59 Intake Total 800 1100 Balance 800 1100 Intake: IV 800 1100 NS+20 MEQ KCL - 20 meq In 800 1100 1,000 ml @ 100 mls/hr IV ASDIR SHANIA Rx#: [id number] Other: Voiding Method Incontinent Incontinent Bowel Movement Yes No No # Bowel Movements 1 1 Active Medications Acetaminophen (Ofirmev Injection -) 1,000 mg IVPB Q6H PRN PRN Reason: FEVER Last Admin: 05/19/19 05:56 Dose: 1,000 mg Potassium Chloride/Sodium Chloride (Ns+20 Meq Kcl -) 20 meq in 1,000 mls @ 100 mls/hr IV ASDIR SHANIA Last Admin: 05/21/19 09:20 Dose: 100 mls/hr Insulin Aspart (Novolog Vial Sliding Scale -) 1 vial SQ ACHS [facility]; Protocol Last Admin: 05/21/19 07:25 Dose: 2 unit Pantoprazole Sodium (Protonix Iv) 40 mg IVPUSH DAILY SHANIA Last Admin: 05/21/19 09:19 Dose: 40 mg CBC, BMP 05/22/19 05:30 05/22/19 05:30 Microbiology 05/17/19 23:20 Blood Culture - Preliminary Blood - Peripheral Venous NO GROWTH OBTAINED AFTER 72 HOURS, INCUBATION TO CONTINUE FOR 2 DAYS. 05/17/19 23:32 Blood Culture - Preliminary Blood - Peripheral Venous NO GROWTH OBTAINED AFTER 72 HOURS, INCUBATION TO CONTINUE FOR 2 DAYS. 05/17/19 23:00 Urine Culture - Final Urine - Urine - Catheterized Klebsiella Pneumoniae Physical Exam Awake/ comfortable. S1 S2 RRR Lungs clear Abd- soft, obese, NT No edema B/L BKA alert/ awake PLAN stable s/p PRBC == monitor iv antibiotics on protonix daily Rocephin bgm reviewed-- monitor oob- chair d/w RN also Will follow Problem List - Problems (1) KEYSHA (acute kidney injury) Code(s): N17.9 - ACUTE KIDNEY FAILURE, UNSPECIFIED (2) Colitis Code(s): K52.9 - NONINFECTIVE GASTROENTERITIS AND COLITIS, UNSPECIFIED (3) Diabetes mellitus Code(s): E11.9 - TYPE 2 DIABETES MELLITUS WITHOUT COMPLICATIONS (4) UTI (urinary tract infection) Code(s): N39.0 - URINARY TRACT INFECTION, SITE NOT SPECIFIED
--- NOTE | 2019-05-23 14:27 | PN.GI ---
GI Progress Note Subjective: patient seen yesterday no abdominal pain, no nausea and vomiting, no melena - Objective Vital Signs: Vital Signs Temperature 98.7 F 05/23/19 06:00 Pulse Rate 75 05/23/19 06:00 Respiratory Rate 20 05/23/19 06:00 Blood Pressure 130/73 05/23/19 06:00 O2 Sat by Pulse Oximetry (%) 98 05/22/19 21:00 Constitutional: Obese Eyes: Yes: Conjunctiva Clear HENT: Yes: Atraumatic Neck: Yes: Supple Cardiovascular: Yes: Regular Rate and Rhythm Respiratory: Yes: CTA Bilaterally ...Palpate: Yes: Soft. No: Firm/Rigid, Guarding, Hepatomegaly, Mass, Pulsatile Mass, Splenomegaly, Tenderness Labs: CBC, BMP 05/22/19 05:30 05/22/19 05:30 INR, PTT INR 1.60 (0.83-1.09) H 05/19/19 07:40 Problem List - Problems (1) GI bleed Assessment/Plan: history of melena R> for EGD tomorrow Code(s): K92.2 - GASTROINTESTINAL HEMORRHAGE, UNSPECIFIED
[2019-05-23] MEDS: SODIUM CHLORIDE 0.9%/KCL 20 MEQ/1,000 ML INFUS.BAG IV SCH (14:43)
[2019-05-23] MEDS ORDERED: INSULIN (NOVOLOG) ASPART 100 UNITS/ML 10ML VIAL ONE (18:11)
[2019-05-23] MEDS ORDERED: PT OWN MED DRAWER 7, Y5N ONE (18:11)
[2019-05-23] MEDS: INSULIN (LEVEMIR) 100 UNITS/ML UNITS SQ SCH (21:40)
[2019-05-24] MEDS: INSULIN SLIDING SCALE (NOVOLOG) 1 VIAL SQ SCH ×4 (06:09→23:03)
[2019-05-24] MEDS ORDERED: INSULIN (LEVEMIR) 100 UNITS/ML UNITS SQ ONE (06:33)
[2019-05-24] MEDS ORDERED: cefTRIAXone SODIUM 1 GM VIAL ONE (09:05)
[2019-05-24] MEDS ORDERED: DEXTROSE 5%-WATER - 50 ML IVPB ONE (09:05)
[2019-05-24] MEDS: SODIUM CHLORIDE 0.9%/KCL 20 MEQ/1,000 ML INFUS.BAG IV SCH (09:19)
[2019-05-24] MEDS: CEFTRIAXONE 1 GM in DEXTROSE 5%-WATER - 50 ML IVPB SCH (09:19)
[2019-05-24] MEDS: PANTOPRAZOLE 40 MG TABLET (FP) PO SCH (09:28)
--- NOTE | 2019-05-24 11:14 | PN ---
Progress Note (short form) - Note Progress Note: no complaints awaiting egd pizarro out and voiding freely Vital Signs Period Temp Pulse Resp BP Sys/Boykin Pulse Ox Last 24 Hr 98.2 F-99.1 F 74-80 18-20 117-125/52-75 99 cor-rrr llungs clear abd soft,nt bilateral bka CBC, BMP 05/22/19 05:30 05/22/19 05:30 Microbiology 05/17/19 23:20 Blood - Peripheral Venous Blood Culture - Final NO GROWTH AFTER 5 DAYS INCUBATION 05/17/19 23:32 Blood - Peripheral Venous Blood Culture - Final NO GROWTH AFTER 5 DAYS INCUBATION 05/19/19 07:30 Stool Salmonella/Shigella Culture - Final NO GROWTH OF SALMONELLA OR SHIGELLA SPECIES OBTAINED 05/19/19 07:30 Stool Campylobacter Culture - Final NO GROWTH OF CAMPYLOBACTER SPECIES OBTAINED 05/19/19 07:30 Stool Yersinia Culture - Final NO GROWTH OF YERSINIA SPECIES OBTAINED 05/19/19 07:30 Stool Vibrio Culture - Final NO GROWTH OF VIBRIO SPECIES OBTAINED 05/19/19 07:30 Stool Escherichia coli 0157 Culture - Final NO GROWTH OF E COLI 0157 OBTAINED 05/17/19 23:00 Urine - Urine - Catheterized Urine Culture - Final Klebsiella Pneumoniae imp/reccd anemia GI bleed SVY-spnihwigsy-vkydyppx ceftriaxone day #6-can switch to po keflex 500 bid and finish 10 days when taking po well KEYSHA leukocytosis-improving plese call back if needed Problem List - Problems (1) GI bleed Code(s): K92.2 - GASTROINTESTINAL HEMORRHAGE, UNSPECIFIED (2) UTI (urinary tract infection) Code(s): N39.0 - URINARY TRACT INFECTION, SITE NOT SPECIFIED (3) KEYSHA (acute kidney injury) Code(s): N17.9 - ACUTE KIDNEY FAILURE, UNSPECIFIED (4) Proctitis Code(s): K62.89 - OTHER SPECIFIED DISEASES OF ANUS AND RECTUM
--- NOTE | 2019-05-24 11:27 | PN ---
Progress Note (short form) - Note Progress Note: pt seen/ examined awake/ comfortable for egd today Vital Signs Temp 98.2 F 05/24/19 10:00 Pulse 78 05/24/19 10:00 Resp 20 05/24/19 10:00 BP 117/52 L 05/24/19 10:00 Pulse Ox 99 05/23/19 21:00 Intake & Output 05/23/19 05/23/19 05/24/19 11:59 23:59 11:59 Intake Total 1100 1100 0 Balance 1100 1100 0 Intake: IV 1100 1100 0 NS+20 MEQ KCL - 20 meq In 1100 1100 1,000 ml @ 100 mls/hr IV ASDIR SHANIA Rx#: [id number] SL 0 Other: Voiding Method Incontinent Incontinent # Unmeasured Voids Garcia 2 Bowel Movement No Yes No Active Medications Acetaminophen (Ofirmev Injection -) 1,000 mg IVPB Q6H PRN PRN Reason: FEVER Last Admin: 05/19/19 05:56 Dose: 1,000 mg Potassium Chloride/Sodium Chloride (Ns+20 Meq Kcl -) 20 meq in 1,000 mls @ 100 mls/hr IV ASDIR [facility] Last Admin: 05/24/19 09:19 Dose: 100 mls/hr Insulin Aspart (Novolog Vial Sliding Scale -) 1 vial SQ [facility]; Protocol Last Admin: 05/24/19 11:01 Dose: Not Given Insulin Detemir (Levemir Vial) 5 units SQ [facility] Last Admin: 05/23/19 21:40 Dose: 5 units Pantoprazole Sodium (Protonix -) 40 mg PO DAILY [facility] Last Admin: 05/24/19 09:28 Dose: 40 mg CBC, BMP 05/22/19 05:30 05/22/19 05:30 Physical Exam Awake/ comfortable. S1 S2 RRR Lungs clear Abd- soft, obese, NT No edema B/L BKA alert/ awake PLAN stable EGD today s/p PRBC == monitor iv antibiotics on protonix daily Rocephin bgm reviewed-- monitor oob- chair d/w RN also Will follow Problem List - Problems (1) KEYSHA (acute kidney injury) Code(s): N17.9 - ACUTE KIDNEY FAILURE, UNSPECIFIED (2) Colitis Code(s): K52.9 - NONINFECTIVE GASTROENTERITIS AND COLITIS, UNSPECIFIED (3) Diabetes mellitus Code(s): E11.9 - TYPE 2 DIABETES MELLITUS WITHOUT COMPLICATIONS (4) UTI (urinary tract infection) Code(s): N39.0 - URINARY TRACT INFECTION, SITE NOT SPECIFIED Problem List - Problems (1) KEYSHA (acute kidney injury) Code(s): N17.9 - ACUTE KIDNEY FAILURE, UNSPECIFIED (2) Colitis Code(s): K52.9 - NONINFECTIVE GASTROENTERITIS AND COLITIS, UNSPECIFIED (3) Diabetes mellitus Code(s): E11.9 - TYPE 2 DIABETES MELLITUS WITHOUT COMPLICATIONS (4) UTI (urinary tract infection) Code(s): N39.0 - URINARY TRACT INFECTION, SITE NOT SPECIFIED
[2019-05-24 14:17] VITALS: BMI 45.5
--- NOTE | 2019-05-24 14:37 | PN ---
Progress Note (short form) - Note Progress Note: Brief GI note EGD performed today revealing mild antral erythema and gastric erosion. Diminutive gastric polyps also seen likely fundic gland. Biopsies taken. No obvious source of bleeding seen. See scanned report for details. Recommendations: -PPI daily -Follow up pathology results -Colonoscopy to be considered pending further discussion with pt and clinical course (pt currently being treated for UTI)
[2019-05-24] MEDS ORDERED: PT OWN MED DRAWER 7, Y5N ONE (21:57)
[2019-05-24] MEDS: INSULIN (LEVEMIR) 100 UNITS/ML UNITS SQ SCH (23:04)
[2019-05-25] MEDS: SODIUM CHLORIDE 0.9%/KCL 20 MEQ/1,000 ML INFUS.BAG IV SCH ×3 (01:29→11:26)
[2019-05-25] MEDS: INSULIN SLIDING SCALE (NOVOLOG) 1 VIAL SQ SCH ×4 (06:03→21:22)
[2019-05-25] MEDS: PANTOPRAZOLE 40 MG TABLET (FP) PO SCH (09:19)
--- NOTE | 2019-05-25 12:08 | PN ---
Progress Note (short form) - Note Progress Note: no dark colored stools No abd pain s/p EGD -- findings noted Vital Signs - 24 hr 05/24/19 05/24/19 05/24/19 14:35 14:50 15:05 Temperature 99.2 F Pulse Rate 76 77 75 Respiratory 20 23 H 22 H Rate Blood Pressure 105/34 L 112/41 L 127/57 L O2 Sat by Pulse 97 97 97 Oximetry (%) 05/24/19 05/24/19 05/24/19 18:05 21:00 22:00 Temperature 98.5 F 98.0 F Pulse Rate 81 79 Respiratory 20 18 Rate Blood Pressure 118/54 L 119/81 O2 Sat by Pulse 100 Oximetry (%) 05/25/19 05/25/19 05/25/19 02:05 06:07 09:00 Temperature 98.7 F 99.3 F Pulse Rate 80 77 Respiratory 20 20 Rate Blood Pressure 115/7 L 117/83 O2 Sat by Pulse 100 Oximetry (%) 05/25/19 10:00 Temperature 98.0 F Pulse Rate 77 Respiratory 20 Rate Blood Pressure 129/69 O2 Sat by Pulse Oximetry (%) Current Medications Generic Name Dose Route Start Last Admin Trade Name Freq PRN Reason Stop Dose Admin Acetaminophen 1,000 mg 05/18/19 11:55 05/19/19 05:56 Ofirmev Injection - IVPB 1,000 mg Q6H PRN Administration FEVER Potassium Chloride/Sodium Chloride 20 meq in 1,000 mls @ 100 mls/hr 05/19/19 09:57 05/25/19 11:26 Ns+20 Meq Kcl - IV 100 mls/hr ASDIR SHANIA Administration Insulin Aspart 1 vial 05/18/19 16:30 05/25/19 11:33 Novolog Vial Sliding Scale - SQ Not Given ACHS [facility] Protocol Insulin Detemir 5 units 05/21/19 22:00 05/24/19 23:04 Levemir Vial SQ 5 units HS SHANIA Administration Pantoprazole Sodium 40 mg 05/22/19 10:00 05/25/19 09:19 Protonix - PO 40 mg DAILY SHANIA Administration Laboratory Results - last 24 hr 05/24/19 05/24/19 05/25/19 16:21 23:02 06:00 POC Glucometer 96 98 85 05/25/19 11:32 POC Glucometer 135 S1 S2 RRR Lungs clear Abd- soft, obese, NT No edema B/L BKA PLAN s/p PRBC iv antibiotics -->changed to PO Keflex on protonix daily tolerating diet EGD noted check labs Problem List - Problems (1) Blood per rectum Code(s): K62.5 - HEMORRHAGE OF ANUS AND RECTUM (2) Colitis Code(s): K52.9 - NONINFECTIVE GASTROENTERITIS AND COLITIS, UNSPECIFIED (3) Diabetes mellitus Code(s): E11.9 - TYPE 2 DIABETES MELLITUS WITHOUT COMPLICATIONS
[2019-05-25] MEDS: CEPHALEXIN MONOHYDRATE 500 MG CAPSULE (UD) PO SCH ×2 (13:16→21:22)
[2019-05-25] MEDS ORDERED: INSULIN (NOVOLOG) ASPART 100 UNITS/ML 10ML VIAL ONE (20:40)
[2019-05-25] MEDS: INSULIN (LEVEMIR) 100 UNITS/ML UNITS SQ SCH (21:21)
[2019-05-26] MEDS: INSULIN SLIDING SCALE (NOVOLOG) 1 VIAL SQ SCH ×4 (06:15→22:57)
[2019-05-26 08:27] LABS: HEMATOCRIT 25.7 % (32.4-45.2); HEMOGLOBIN 8.8 GM/dL (10.7-15.3); MCH 31.9 pg (25.7-33.7); MEAN CELL VOLUME 93.7 fl (80-96); MEAN PLT VOLUME 8.3 fl (7.5-11.1); PLATELET COUNT 370 K/MM3 (134-434); RBC 2.74 M/mm3 (3.60-5.2); RDW 14.7 % (11.6-15.6); WHITE BLOOD COUNT 10.7 K/mm3 (4.0-10.0)
[2019-05-26 08:29] LABS: ALBUMIN 1.6 g/dl (3.4-5.0); BILIRUBIN,TOTAL 0.2 mg/dL (0.2-1); CALCIUM 7.1 mg/dL (8.5-10.1); CREATININE 0.8 mg/dL (0.55-1.3); POTASSIUM 3.4 mmol/L (3.5-5.1); TOT PROT 5.5 g/dl (6.4-8.2)
[2019-05-26 08:34] LABS: BLOOD UREA NITROGEN 2.5 mg/dL (7-18)
[2019-05-26] MEDS ORDERED: PT OWN MED DRAWER 7, Y5N ONE ×2 (10:06→12:15)
[2019-05-26] MEDS: CEPHALEXIN MONOHYDRATE 500 MG CAPSULE (UD) PO SCH ×2 (10:08→23:00)
[2019-05-26] MEDS: SODIUM CHLORIDE 0.9%/KCL 20 MEQ/1,000 ML INFUS.BAG IV SCH (10:08)
[2019-05-26] MEDS: PANTOPRAZOLE 40 MG TABLET (FP) PO SCH (10:08)
--- NOTE | 2019-05-26 11:00 | PN ---
Progress Note (short form) - Note Progress Note: no dark colored stools today has decreased appetite No abd pain s/p EGD -- findings noted Vital Signs - 24 hr 05/25/19 05/25/19 05/25/19 14:00 17:08 21:00 Temperature 98.4 F 98.6 F 98.6 F Pulse Rate 77 81 81 Respiratory 20 20 20 Rate Blood Pressure 127/62 143/56 L 118/61 05/26/19 05/26/19 02:27 07:40 Temperature 99.4 F 99.6 F Pulse Rate 80 79 Respiratory 20 20 Rate Blood Pressure 129/54 L 104/64 Current Medications Generic Name Dose Route Start Last Admin Trade Name Freq PRN Reason Stop Dose Admin Acetaminophen 1,000 mg 05/18/19 11:55 05/19/19 05:56 Ofirmev Injection - IVPB 1,000 mg Q6H PRN Administration FEVER Amino Acids 30 ml 05/26/19 17:30 Prosource No Carb Liquid Pkt PO BID@0800,1730 [facility] Cephalexin HCl 500 mg 05/25/19 12:45 05/26/19 10:08 Keflex - PO 05/28/19 23:59 500 mg BID SHANIA Administration Potassium Chloride/Sodium Chloride 20 meq in 1,000 mls @ 100 mls/hr 05/19/19 09:57 05/26/19 10:08 Ns+20 Meq Kcl - IV Not Given ASDIR [facility] Iron Sucrose 200 mg/ Sodium 100 mls @ 100 mls/hr 05/26/19 10:55 Chloride IVPB 05/26/19 11:54 ONCE ONE Insulin Aspart 1 vial 05/18/19 16:30 05/26/19 06:15 Novolog Vial Sliding Scale - SQ Not Given ACHS [facility] Protocol Insulin Detemir 5 units 05/21/19 22:00 05/25/19 21:21 Levemir Vial SQ 5 units HS SHANIA Administration Pantoprazole Sodium 40 mg 05/22/19 10:00 05/26/19 10:08 Protonix - PO 40 mg DAILY SHANIA Administration Potassium Chloride 40 meq 05/26/19 10:55 K-Dur - PO 05/26/19 10:56 ONCE ONE Laboratory Results - last 24 hr 05/19/19 05/25/19 05/25/19 07:30 11:32 16:54 WBC RBC Hgb Hct MCV MCH MCHC RDW Plt Count MPV Sodium Potassium Chloride Carbon Dioxide Anion Gap BUN Creatinine Est GFR (CKD-EPI)AfAm Est GFR (CKD-EPI)NonAf POC Glucometer 135 172 Random Glucose Calcium Total Bilirubin AST ALT Alkaline Phosphatase Total Protein Albumin Stool O & P Wet [place] Permanent Slide Final report 05/25/19 05/26/19 05/26/19 21:16 06:13 06:55 WBC 10.7 H RBC 2.74 L Hgb 8.8 L Hct 25.7 L MCV 93.7 MCH 31.9 MCHC 34.0 RDW 14.7 Plt Count 370 MPV 8.3 Sodium Potassium Chloride Carbon Dioxide Anion Gap BUN Creatinine Est GFR (CKD-EPI)AfAm Est GFR (CKD-EPI)NonAf POC Glucometer 156 86 Random Glucose Calcium Total Bilirubin AST ALT Alkaline Phosphatase Total Protein Albumin Stool O & P Wet [place] Permanent Slide 05/26/19 06:55 WBC RBC Hgb Hct MCV MCH MCHC RDW Plt Count MPV Sodium 140 Potassium 3.4 L Chloride 110 H Carbon Dioxide 21 Anion Gap 9 BUN 2.5 L* Creatinine 0.8 Est GFR (CKD-EPI)AfAm 90.30 Est GFR (CKD-EPI)NonAf 77.91 POC Glucometer Random Glucose 83 Calcium 7.1 L Total Bilirubin 0.2 AST 17 ALT 10 L Alkaline Phosphatase 82 Total Protein 5.5 L Albumin 1.6 L Stool O & P Wet [place] Permanent Slide S1 S2 RRR Lungs clear Abd- soft, obese, NT No edema B/L BKA PLAN s/p PRBC will give IV venofer today x 1 iv antibiotics -->changed to PO Keflex on protonix daily supplements replace potassium EGD noted check labs Problem List - Problems (1) Blood per rectum Code(s): K62.5 - HEMORRHAGE OF ANUS AND RECTUM (2) Colitis Code(s): K52.9 - NONINFECTIVE GASTROENTERITIS AND COLITIS, UNSPECIFIED (3) Diabetes mellitus Code(s): E11.9 - TYPE 2 DIABETES MELLITUS WITHOUT COMPLICATIONS
[2019-05-26] MEDS ORDERED: INSULIN (NOVOLOG) ASPART 100 UNITS/ML 10ML VIAL ONE (11:13)
[2019-05-26] MEDS ORDERED: POTASSIUM CHLORIDE TABS 20 MEQ TABLET.ER (FP) PO ONE (11:30)
[2019-05-26] MEDS ORDERED: IRON SUCROSE INJECTION 200 MG in SODIUM CHLORIDE 90 ML IVPB ONE (11:45)
--- NOTE | 2019-05-26 17:42 | PATH ---
Surgical Pathology Report Patient Name: JUAN SAWYER [facility]. Rec. #: [id number] /Age/Gender: 1955 (Age: 64) / F Account: [id number] Location: [facility] MED/SURG Taken: 05/24/2019 Received: 05/25/2019 Reported: 05/26/2019 Physicians: Latanya Gordon MD Specimen(s) Received A: BX ANTRUM B: GASTRIC POLYP Clinical History Anemia Postoperative diagnosis: Gastritis Final Diagnosis A. ANTRUM, BIOPSY: GASTRIC MUCOSA WITH MILD CHRONIC GASTRITIS. IMMUNOSTAIN FOR H. PYLORI IS NEGATIVE. NEGATIVE FOR INTESTINAL METAPLASIA. B. GASTRIC POLYP, BIOPSY: GASTRIC MUCOSA WITH CHRONIC GASTRITIS. NEGATIVE FOR INTESTINAL METAPLASIA. Electronically Signed Jd Ferreira M.D. Gross Description A. Received in formalin, labeled "antrum" is a sarkar, irregular portion of of soft tissue measuring 0.3 cm. in greatest dimension. The specimens are submitted in toto in one cassette. B. Received in formalin, labeled "gastric polyp" are 2 sarkar, irregular portions of soft tissue measuring 0.1 to 0.3 cm. in greatest dimension. The specimens are submitted in toto in one cassette. __ KWRebekah/05/26/2019 mirza/05/26/2019
[2019-05-26] MEDS: AMINO ACIDS/PROTEIN HYDROLYS 30 ML LIQUID.PKT PO SCH (17:57)
[2019-05-26] MEDS: INSULIN (LEVEMIR) 100 UNITS/ML UNITS SQ SCH (21:40)
[2019-05-27] MEDS: INSULIN SLIDING SCALE (NOVOLOG) 1 VIAL SQ SCH ×4 (06:41→21:22)
[2019-05-27 08:47] LABS: HEMATOCRIT 27.4 % (32.4-45.2); HEMOGLOBIN 9.3 GM/dL (10.7-15.3); MCH 31.7 pg (25.7-33.7); MCHC 34.1 g/dl (32.0-36.0); MEAN CELL VOLUME 92.9 fl (80-96); PLATELET COUNT 383 K/MM3 (134-434); RBC 2.95 M/mm3 (3.60-5.2); RDW 14.7 % (11.6-15.6); WHITE BLOOD COUNT 11.2 K/mm3 (4.0-10.0)
[2019-05-27 09:09] LABS: ALBUMIN 1.7 g/dl (3.4-5.0); BILIRUBIN,TOTAL 0.4 mg/dL (0.2-1); BLOOD UREA NITROGEN 4.2 mg/dL (7-18); CREATININE 0.8 mg/dL (0.55-1.3); POTASSIUM 3.3 mmol/L (3.5-5.1)
[2019-05-27] MEDS ORDERED: PT OWN MED DRAWER 7, Y5N ONE (09:36)
[2019-05-27] MEDS: AMINO ACIDS/PROTEIN HYDROLYS 30 ML LIQUID.PKT PO SCH ×2 (10:12→17:16)
[2019-05-27] MEDS: CEPHALEXIN MONOHYDRATE 500 MG CAPSULE (UD) PO SCH ×2 (10:13→21:23)
[2019-05-27] MEDS: PANTOPRAZOLE 40 MG TABLET (FP) PO SCH (10:17)
[2019-05-27] MEDS ORDERED: POTASSIUM CHLORIDE TABS 20 MEQ TABLET.ER (FP) PO ONE (11:46)
--- NOTE | 2019-05-27 12:41 | PN ---
Progress Note (short form) - Note Progress Note: no dark colored stools today feels well no complaints Vital Signs - 24 hr 05/26/19 05/26/19 05/26/19 15:00 17:18 21:00 Temperature 98.9 F 99.1 F 98.8 F Pulse Rate 79 80 78 Respiratory 20 20 20 Rate Blood Pressure 126/61 138/64 132/68 O2 Sat by Pulse Oximetry (%) 05/27/19 05/27/19 05/27/19 02:05 07:36 09:00 Temperature 99.2 F 99.1 F Pulse Rate 82 79 Respiratory 20 20 20 Rate Blood Pressure 124/65 136/64 O2 Sat by Pulse 96 Oximetry (%) Current Medications Generic Name Dose Route Start Last Admin Trade Name Freq PRN Reason Stop Dose Admin Acetaminophen 1,000 mg 05/18/19 11:55 05/19/19 05:56 Ofirmev Injection - IVPB 1,000 mg Q6H PRN Administration FEVER Amino Acids 30 ml 05/26/19 17:30 05/27/19 10:12 Prosource No Carb Liquid Pkt PO 30 ml BID@0800,1730 SHANIA Administration Cephalexin HCl 500 mg 05/25/19 12:45 05/27/19 10:13 Keflex - PO 05/28/19 23:59 500 mg BID SHANIA Administration Insulin Aspart 1 vial 05/18/19 16:30 05/27/19 06:41 Novolog Vial Sliding Scale - SQ Not Given ACHS [facility] Protocol Insulin Detemir 5 units 05/21/19 22:00 05/26/19 21:40 Levemir Vial SQ 5 units HS SHANIA Administration Pantoprazole Sodium 40 mg 05/22/19 10:00 05/27/19 10:17 Protonix - PO 40 mg DAILY SHANIA Administration Laboratory Results - last 24 hr 05/26/19 05/26/19 05/27/19 17:58 21:13 06:40 WBC RBC Hgb Hct MCV MCH MCHC RDW Plt Count MPV Sodium Potassium Chloride Carbon Dioxide Anion Gap BUN Creatinine Est GFR (CKD-EPI)AfAm Est GFR (CKD-EPI)NonAf POC Glucometer 133 147 119 Random Glucose Calcium Total Bilirubin AST ALT Alkaline Phosphatase Total Protein Albumin 05/27/19 05/27/19 08:05 08:05 WBC 11.2 H RBC 2.95 L Hgb 9.3 L Hct 27.4 L MCV 92.9 MCH 31.7 MCHC 34.1 RDW 14.7 Plt Count 383 MPV 8.0 Sodium 139 Potassium 3.3 L Chloride 107 Carbon Dioxide 23 Anion Gap 9 BUN 4.2 L Creatinine 0.8 Est GFR (CKD-EPI)AfAm 90.30 Est GFR (CKD-EPI)NonAf 77.91 POC Glucometer Random Glucose 112 H Calcium 7.0 L Total Bilirubin 0.4 AST 18 ALT 7 L Alkaline Phosphatase 85 Total Protein 6.0 L Albumin 1.7 L S1 S2 RRR Lungs clear Abd- soft, obese, NT No edema B/L BKA PLAN s/p PRBC s/p IV venofer iv antibiotics -->changed to PO Keflex on protonix daily supplements replace potassium EGD noted HCT better spoke with GI-- colonoscopy as outpt pt will be dc in AM -- no aide at home and daughter has dialysis today Problem List - Problems (1) Blood per rectum Code(s): K62.5 - HEMORRHAGE OF ANUS AND RECTUM (2) Colitis Code(s): K52.9 - NONINFECTIVE GASTROENTERITIS AND COLITIS, UNSPECIFIED (3) Diabetes mellitus Code(s): E11.9 - TYPE 2 DIABETES MELLITUS WITHOUT COMPLICATIONS
--- NOTE | 2019-05-27 12:45 | DS ---
Physical Examination Vital Signs: Vital Signs Temperature 99.1 F 05/27/19 07:36 Pulse Rate 79 05/27/19 07:36 Respiratory Rate 20 05/27/19 09:00 Blood Pressure 136/64 05/27/19 07:36 O2 Sat by Pulse Oximetry (%) 96 05/27/19 09:00 Constitutional: Yes: No Distress, Calm Cardiovascular: Yes: Regular Rate and Rhythm Respiratory: Yes: CTA Bilaterally Gastrointestinal: Yes: Normal Bowel Sounds, Soft, Abdomen, Obese. No: Tenderness Extremities: Yes: Amputation Edema: No Labs: CBC, BMP 05/27/19 08:05 05/27/19 08:05 Discharge Summary Problems reviewed: Yes Reason For Visit: ACUTE COLITIS Current Active Problems KEYSHA (acute kidney injury) (Acute) Blood per rectum (Acute) Colitis (Acute) Diabetes mellitus (Acute) Diarrhea (Acute) GI bleed (Acute) Proctitis (Acute) UTI (urinary tract infection) (Acute) Vomiting (Acute) Plan of Treatment: Pt admitted for bloody diarrhea CT abd/pelvis--acute proctitis vs colitis Was evaluated by GI and ID was on antibiotics Found to have Klebsiella UTI-- on ceftriaxone-- now changed to PO keflex EGD done on 05/24/19-- EGD performed today revealing mild antral erythema and gastric erosion. Diminutive gastric polyps also seen likely fundic gland. Biopsies taken. No obvious source of bleeding seen. Recommendations: by GI -PPI daily -pathology results--->chronic gastritis, negative H pylori -Colonoscopy as outpt leucocytosis improved Hb better after packed cells and iv venofer Pt will need colonoscopy as outpt stable for dc home Condition: Stable - Instructions Referrals: Amrik Smith DO [Staff Physician] - Disposition: HOME - Home Medications Comprehensive Discharge Medication List: Ambulatory Orders Amino Acids/Protein Hydrolys [Prosource No Carb Liquid Pkt] 30 ml PO BID@0800, 1730 #30 packet 05/27/19 Cephalexin Monohydrate [Keflex -] 500 mg PO BID #2 capsule 05/27/19 Insulin (Levemir) [Levemir Vial] 5 units SQ HS units 05/27/19 Pantoprazole Sodium [Protonix -] 40 mg PO DAILY #60 tablet.ec 05/27/19
[2019-05-27] MEDS ORDERED: INSULIN (NOVOLOG) ASPART 100 UNITS/ML 10ML VIAL ONE (21:19)
[2019-05-27] MEDS: INSULIN (LEVEMIR) 100 UNITS/ML UNITS SQ SCH (21:22)
[2019-05-28] MEDS: INSULIN SLIDING SCALE (NOVOLOG) 1 VIAL SQ SCH ×2 (06:44→11:22)
[2019-05-28] MEDS ORDERED: INSULIN (LEVEMIR) 100 UNITS/ML UNITS SQ ONE (06:54)
[2019-05-28] MEDS: AMINO ACIDS/PROTEIN HYDROLYS 30 ML LIQUID.PKT PO SCH (09:23)
[2019-05-28] MEDS: CEPHALEXIN MONOHYDRATE 500 MG CAPSULE (UD) PO SCH (09:24)
[2019-05-28] MEDS: PANTOPRAZOLE 40 MG TABLET (FP) PO SCH (09:24)
[2019-05-28 11:21] VITALS: BP 149/73; PULSE 81; TEMP 98.4
--- NOTE | 2019-05-28 12:39 | PN ---
Progress Note (short form) - Note Progress Note: pt seen/ examined comfortable no complains chart reviewed Vital Signs Temp 98.4 F 05/28/19 09:00 Pulse 81 05/28/19 09:00 Resp 20 05/28/19 09:00 BP 149/73 05/28/19 09:00 Pulse Ox 98 05/28/19 09:00 Intake & Output 05/27/19 05/28/19 05/28/19 23:59 11:59 23:59 Intake Total 1150 Balance 1150 Intake: Oral 1150 Other: Voiding Method Incontinent Incontinent # Unmeasured Voids Void 1 1 Bowel Movement Yes: 1 Active Medications Acetaminophen (Ofirmev Injection -) 1,000 mg IVPB Q6H PRN PRN Reason: FEVER Last Admin: 05/19/19 05:56 Dose: 1,000 mg Amino Acids (Prosource No Carb Liquid Pkt) 30 ml PO BID@0800,1730 [facility] Last Admin: 05/28/19 09:23 Dose: 30 ml Cephalexin HCl (Keflex -) 500 mg PO BID [facility] Stop: 05/28/19 23:59 Last Admin: 05/28/19 09:24 Dose: 500 mg Insulin Aspart (Novolog Vial Sliding Scale -) 1 vial SQ [facility]; Protocol Last Admin: 05/28/19 11:22 Dose: Not Given Insulin Detemir (Levemir Vial) 5 units SQ HS [facility] Last Admin: 05/27/19 21:22 Dose: 5 units Pantoprazole Sodium (Protonix -) 40 mg PO DAILY [facility] Last Admin: 05/28/19 09:24 Dose: 40 mg CBC, BMP 05/27/19 08:05 05/27/19 08:05 Physical Exam S1 S2 RRR Lungs clear Abd- soft, obese, NT No edema B/L BKA awake/ comfortable PLAN s/p PRBC s/p IV venofer iv antibiotics -->changed to PO Keflex on protonix daily supplements replace potassium EGD noted HCT better spoke with GI-- colonoscopy as outpt d/c today-- see d/c summary of yesterday Problem List - Problems (1) KEYSHA (acute kidney injury) Code(s): N17.9 - ACUTE KIDNEY FAILURE, UNSPECIFIED (2) Colitis Code(s): K52.9 - NONINFECTIVE GASTROENTERITIS AND COLITIS, UNSPECIFIED (3) Diabetes mellitus Code(s): E11.9 - TYPE 2 DIABETES MELLITUS WITHOUT COMPLICATIONS (4) UTI (urinary tract infection) Code(s): N39.0 - URINARY TRACT INFECTION, SITE NOT SPECIFIED
== END 2019-05-28 12:54 | disposition home or self-care (01) | DRG 241 ==
LOC: JER 11:08 → JERBED 22:08 → J8W 05-18 04:37
PROVIDERS: ADMIT Internal Medicine; ATTEND Internal Medicine
PROC: 30233N1 Transfusion of Nonautologous Red Blood Cells into Peripheral Vein, Percutaneous Approach (ICD-10-PCS; 2019-05-19)
PROC: 0DD68ZX Extraction of Stomach, Via Natural or Artificial Opening Endoscopic, Diagnostic (ICD-10-PCS; principal; 2019-05-24 14:30)
DX: K25.4 Chronic or unspecified gastric ulcer with hemorrhage (principal); K52.9 Noninfective gastroenteritis and colitis, unspecified; N39.0 Urinary tract infection, site not specified; D72.829 Elevated white blood cell count, unspecified; E11.65 Type 2 diabetes mellitus with hyperglycemia; K29.50 Unspecified chronic gastritis without bleeding; K31.7 Polyp of stomach and duodenum; N17.9 Acute kidney failure, unspecified; R11.10 Vomiting, unspecified; L89.302 Pressure ulcer of unspecified buttock, stage 2; D64.9 Anemia, unspecified; B96.1 Klebsiella pneumoniae [K. pneumoniae] as the cause of diseases classified elsewhere; K62.89 Other specified diseases of anus and rectum; Z89.512 Acquired absence of left leg below knee; Z89.511 Acquired absence of right leg below knee; E66.01 Morbid (severe) obesity due to excess calories; Z68.42 Body mass index [BMI] 45.0-49.9, adult
CPT/HCPCS: 36415; 36430; 36511; 71045-TC-FY; 74176-TC; 80048; 80053; 81003; 82150; 82272; 82550; 82962; 83605; 83690; 83735; 84100; 84484; 85025; 85027; 85610; 85730; 86850; 86900; 86901; 86922; 87040; 87045; 87046; 87086; 87177; 87186; 87209; 87324; 87449; 88305-TC; 93005; 93010; 99285-25; J0131; J1756; J7030; P9038; P9058

== ENCOUNTER 2021-03-22 15:23 | Emergency (ER) | payer MEDICARE, OTHER ==
[2021-03-22 15:51] VITALS: BMI 40.1
[2021-03-22] MEDS ORDERED: BACITRACIN 15 GM TUBE TOPICAL OINTMENT TP ONE (17:20)
[2021-03-22] MEDS ORDERED: BACITRACIN 0.9 GM PACKET ONE (17:29)
[2021-03-22 18:50] VITALS: TEMP 98.1
[2021-03-23 09:21] VITALS: BP 124/74; PULSE 70
== END 2021-03-23 09:05 | disposition home or self-care (01) ==
LOC: JER 15:23
DX: R19.7 Diarrhea, unspecified (principal); E11.9 Type 2 diabetes mellitus without complications
CPT/HCPCS: 99284-25

== ENCOUNTER 2021-06-27 12:16 | Emergency (ER) | payer MEDICARE, OTHER ==
[2021-06-27 13:20] VITALS: BP 125/66; PULSE 67; TEMP 97.2; BMI 40.1
[2021-06-27 14:35] LABS: BASO % 1.3 % (0-2.0); EOS % 4.3 % (0-4.5); HEMATOCRIT 31.1 % (32.4-45.2); HEMOGLOBIN 10.6 GM/dL (10.7-15.3); LYMPH % 36.7 % (8-40); MCH 33.3 pg (25.7-33.7); MCHC 34.3 g/dl (32.0-36.0); MEAN CELL VOLUME 97.2 fl (80-96); MEAN PLT VOLUME 8.8 fl (7.5-11.1); MONO % 4.1 % (3.8-10.2); NEUT % 53.6 % (42.8-82.8); PLATELET COUNT 235 10^3/uL (134-434); RBC 3.19 M/mm3 (3.60-5.2); RDW 14.2 % (11.6-15.6); WHITE BLOOD COUNT 7.5 K/mm3 (4.0-10.0)
[2021-06-27 15:05] LABS: ALBUMIN 3.1 g/dl (3.4-5.0); BLOOD UREA NITROGEN 19.5 mg/dL (7-18); CALCIUM 8.9 mg/dL (8.5-10.1)
[2021-06-27 15:10] LABS: BILIRUBIN,TOTAL 0.3 mg/dL (0.2-1); TOT PROT 7.2 g/dl (6.4-8.2)
== END 2021-06-27 17:50 | disposition home or self-care (01) ==
LOC: JER 12:16
DX: R19.7 Diarrhea, unspecified (principal)
CPT/HCPCS: 36415; 80053; 84436; 84443; 85025; 86850; 86900; 86901; 99283-25

== ENCOUNTER 2024-02-24 11:17 | Emergency (ER) | payer MEDICARE, OTHER ==
[2024-02-24 11:45] VITALS: RESP 18; TEMP 98.9; BMI 43.0
[2024-02-24] MEDS: ACETAMINOPHEN 1000 MG/100 ML BAG IVPB ONE (13:00)
[2024-02-24] MEDS ORDERED: ACETAMINOPHEN INJECTION 100 ML IVPB ONE (13:16)
[2024-02-24] MEDS ORDERED: PIPERACILLIN/TAZOB 3.375 GM 3.375 GM/50 ML BAG IVPB ONE (13:17)
[2024-02-24 13:18] LABS: BASO % 1.1 % (0-2.0); EOS % 1.5 % (0-4.5); HEMATOCRIT 30.3 % (32.4-45.2); HEMOGLOBIN 10.4 GM/dL (10.7-15.3); LYMPH % 27.4 % (8-40); MCH 33.2 pg (25.7-33.7); MCHC 34.2 g/dl (32.0-36.0); MEAN CELL VOLUME 96.9 fl (80-96); MEAN PLT VOLUME 8.9 fl (7.5-11.1); MONO % 6.2 % (3.8-10.2); NEUT % 63.8 % (42.8-82.8); PLATELET COUNT 222 10^3/uL (134-434); RBC 3.13 M/mm3 (3.60-5.2); RDW 13.7 % (11.6-15.6); WHITE BLOOD COUNT 7.6 K/mm3 (4.0-10.0)
[2024-02-24 13:26] LABS: INR 1.06 (0.83-1.09); PROTHROMBIN TIME (PATIENT) 12.2 SEC (9.7-13.0)
[2024-02-24 13:29] LABS: ACTIVATED PTT 33.1 SECONDS (25.2-36.5)
[2024-02-24] MEDS: PIPERACILLIN/TAZOB 3.375 GM 3.375 GM in DEXTROSE 5%-WATER - 50 ML IVPB ONE (13:39)
[2024-02-24 13:50] LABS: POTASSIUM 4.1 mmol/L (3.5-5.1)
[2024-02-24 13:52] LABS: CALCIUM 8.4 mg/dL (8.5-10.1)
[2024-02-24 13:53] LABS: ALBUMIN 3.1 g/dl (3.4-5.0); BLOOD UREA NITROGEN 15.8 mg/dL (7-18)
[2024-02-24 13:56] LABS: CREATININE 1.1 mg/dL (0.55-1.3)
[2024-02-24 13:57] LABS: BILIRUBIN,TOTAL 0.5 mg/dL (0.2-1); TOT PROT 7.1 g/dl (6.4-8.2)
[2024-02-24] MEDS: VANCOMYCIN PREMIX 1.5 GM 1,500 MG/300 ML BAG IVPB ONE (14:16)
[2024-02-24] MEDS: VANCOMYCIN HCL 1,500 MG in DEXTROSE 5%-WATER - 500 ML IVPB ONE (14:17)
[2024-02-24 15:46] VITALS: BP 100/59; PULSE 70
== END 2024-02-24 15:50 | disposition short-term general hospital (02) ==
LOC: JER 11:17
PROC: 3E03329 Introduction of Other Anti-infective into Peripheral Vein, Percutaneous Approach (ICD-10-PCS; principal; 2024-02-24)
PROC: 3E03329 Introduction of Other Anti-infective into Peripheral Vein, Percutaneous Approach (ICD-10-PCS; 2024-02-24)
PROC: 3E03329 Introduction of Other Anti-infective into Peripheral Vein, Percutaneous Approach (ICD-10-PCS; 2024-02-24)
PROC: 3E033NZ Introduction of Analgesics, Hypnotics, Sedatives into Peripheral Vein, Percutaneous Approach (ICD-10-PCS; 2024-02-24)
DX: M86.641 Other chronic osteomyelitis, right hand (principal); M65.841 Other synovitis and tenosynovitis, right hand
CPT/HCPCS: 36415; 73130-TC-RT-FY; 80053; 85025; 85610; 85730; 86140; 86850; 86900; 86901; 99285-25; J0131

== ENCOUNTER 2024-06-19 23:42 | Emergency (ER) | payer BC, OTHER ==
[2024-06-20 00:19] VITALS: PULSE 72; RESP 16; BMI 56.7
[2024-06-20] MEDS ORDERED: ACETAMINOPHEN 325 MG TABLET (FP) ONE (00:51)
[2024-06-20] MEDS: ACETAMINOPHEN 325 MG TABLET (FP) PO ONE (01:13)
[2024-06-20] MEDS ORDERED: LIDOCAINE 4% PATCH TP ONE (01:33)
[2024-06-20] MEDS: LIDOCAINE 5% TOPICAL PATCH TP ONE (01:37)
[2024-06-20 06:33] VITALS: BP 115/63; TEMP 97.6
[2024-06-20] MEDS ORDERED: LIDOCAINE PATCH REMOVAL MC SCH (22:00)
== END 2024-06-20 09:20 | disposition home or self-care (01) ==
LOC: JER 23:42
DX: M25.512 Pain in left shoulder (principal); M54.2 Cervicalgia; W06.XXXA Fall from bed, initial encounter
CPT/HCPCS: 73030-TC-LT-FY; 99283-25

== ENCOUNTER 2024-12-02 02:05 | Emergency (ER) | payer OTHER ==
[2024-12-02 02:34] VITALS: BP 104/43; PULSE 61; RESP 16; TEMP 97.7; BMI 28.4
[2024-12-02] MEDS ORDERED: ACETAMINOPHEN INJECTION 100 ML ONE (02:52)
[2024-12-02] MEDS: SODIUM CHLORIDE 0.9% 1000 ML INFUS.BAG IV ONE (03:17)
[2024-12-02] MEDS: ACETAMINOPHEN 1000 MG/100 ML BAG IVPB ONE (03:17)
[2024-12-02 04:43] LABS: ABSOLUTE IMMATURE GRANULOCYTES 0.01 x10^3/uL (0.0-0.031); BASOPHILS # 0.06 x10^3/uL (0.01-0.08); EOSINOPHIL % 6.3 % (0.7-5.8); EOSINOPHILS # 0.29 x10^3/uL (0.04-0.36); HEMATOCRIT 27.2 % (34.1-44.9); MCHC 33.1 g/dl (32.2-35.5); MEAN CELL VOLUME 96.1 fl (79.4-94.8); MEAN PLT VOLUME 11.7 fl (9.4-12.3); MONOCYTE # 0.18 x10^3/uL (0.24-0.86); MONOCYTE % 3.9 % (4.7-12.5); PLATELET COUNT 180 x10^3/uL (182-369); RDW 15.7 % (12.4-16.4)
[2024-12-02 05:05] LABS: POTASSIUM 5.2 mmol/L (3.5-5.1)
[2024-12-02 05:07] LABS: BLOOD UREA NITROGEN 24.1 mg/dL (7-18)
[2024-12-02 05:09] LABS: CALCIUM 8.5 mg/dL (8.5-10.1)
[2024-12-02 05:11] LABS: CREATININE 0.9 mg/dL (0.55-1.3)
[2024-12-02 05:12] LABS: BILIRUBIN,TOTAL 0.3 mg/dL (0.2-1); TOT PROT 7.4 g/dl (6.4-8.2)
[2024-12-02 06:00] LABS: EPI CELLS 21 /uL (0-25.1); HYALINE CASTS 2 /uL (0-3.1); URINE APPEARANCE CLEAR; URINE BACTERIA 32 /uL (0-1359); URINE BILIRUBIN NEGATIVE (NEGATIVE); URINE COLOR YELLOW; URINE GLUCOSE (UA) NEGATIVE (NEGATIVE); URINE KETONE TRACE (NEGATIVE); URINE LEUK ESTERASE 2+ (NEGATIVE); URINE NITRITE NEGATIVE (NEGATIVE); URINE PROTEIN NEGATIVE (NEGATIVE); URINE UROBILINOGEN 0.2 mg/dL (0.2-1.0); URINE WBC 274 /uL (0-25.8)
[2024-12-02 06:03] LABS: URINE RBC 436.4 /uL (0-23.9)
[2024-12-02] MEDS ORDERED: CEFTRIAXONE 1 G/50 ML PREMIX 50 ML IVPB ONE (06:06)
[2024-12-02] MEDS: CEFTRIAXONE 1,000 MG in DEXTROSE 5%-WATER - 50 ML IVPB ONE (06:07)
[2024-12-02 06:34] LABS: YEAST PRESENT (NEGATIVE)
[2024-12-02] MEDS ORDERED: FLUCONAZOLE 150 MG TABLET PO ONE (06:51)
[2024-12-02] MEDS: FLUCONAZOLE 150 MG TABLET PO ONE (06:53)
[2024-12-02 08:17] LABS: MAGNESIUM 1.3 mg/dL (1.8-2.4)
== END 2024-12-02 09:04 | disposition home or self-care (01) ==
LOC: JER 02:05
PROC: 3E033GC Introduction of Other Therapeutic Substance into Peripheral Vein, Percutaneous Approach (ICD-10-PCS; principal; 2024-12-02)
PROC: 3E033NZ Introduction of Analgesics, Hypnotics, Sedatives into Peripheral Vein, Percutaneous Approach (ICD-10-PCS; 2024-12-02)
DX: R51.9 Headache, unspecified (principal); N39.0 Urinary tract infection, site not specified; B37.31 Acute candidiasis of vulva and vagina; R53.1 Weakness; R42 Dizziness and giddiness; R50.9 Fever, unspecified; R09.89 Other specified symptoms and signs involving the circulatory and respiratory systems; R55 Syncope and collapse; M79.10 Myalgia, unspecified site; R19.7 Diarrhea, unspecified
CPT/HCPCS: 0241U-QW; 36415; 71045-TC-FY; 80053; 81003; 83735; 84484; 85025; 87086; 93005; 93010; 96365; 96375; 99285-25; J0131